=== PATIENT | female | born 1965 | race Caucasian/White ===

== ENCOUNTER 2017-09-21 08:19 | Outpatient (CLI) | payer OTHER ==
--- NOTE | 2017-09-21 12:24 | CT ---
CT THORACIC AORTOGRAM WITH CONTRAST: Multiple axial tomograms were obtained through the chest with IV contrast. Contrast was not obtained in the arterial phase. Multiplanar reconstruction and 3D post processing performed. INDICATION: Assess thoracic aortic aneurysm. COMPARISON: Comparison is made to CT chest 04/19/12. FINDINGS: Aortic root does not appear dilated. The aortic root is measured at 3.5 cm. There is fusiform dilatation of the ascending aorta. Ascending aorta measures 4.1 cm width on the co joann images. Previous measurement at similar location was recorded at approximately 3.9 cm. There is a focal saccular aneurysmal dilatation of the upper descending thoracic aorta beginning at t he descending portion of the aortic arch. This aneurysm shows peripheral calcification and shows int ernal thrombus and internal calcification along the medial wall with luminal narrowing. The lumen is very irregular and measures 3.0 cm. This aneurysm is measured at 5.1 cm in the coronal plane. A pr evious similar measurement was recorded at 4.8 cm. The descending thoracic aorta below this aneurysm is unremarkable with no atherosclerotic change or c alcification seen. The lungs are clear of infiltrate. There is linear stranding along the minor fissure on the right. There is a tiny nodule in the right middle lobe measuring in the 3-4 mm range. Mediastinum is unremarkable. Images through the upper abdomen are unremarkable. IMPRESSION: 1. Saccular aneurysm involving the upper descending thoracic aorta just beyond the arch is again see n. This aneurysm has slightly increased in size since the prior exam of 2011. Prominent peripheral calcification and internal thrombus and calcification is again noted producing luminal narrowing at t his aneurysm. 2. There is mild aneurysmal dilatation of the ascending aorta which has slightly increased in size. POS: FIONA
[2017-09-21] MEDS ORDERED: Iopamidol 370 76% 100 ML VIAL ONE (16:02)
== END 2017-09-21 08:20 | disposition home or self-care (01) ==
LOC: CT 08:19
PROVIDERS: ATTEND Family Medicine
DX: I71.2 Thoracic aortic aneurysm, without rupture (principal)
CPT/HCPCS: 71275

== ENCOUNTER 2017-12-20 12:46 | Inpatient (IN) | payer OTHER ==
[2017-12-20] MEDS ORDERED: Acetaminophen 325 MG TAB PO PRN (14:08)
[2017-12-20] MEDS ORDERED: Ondansetron ODT 4 MG TAB SL PRN (14:08)
[2017-12-20] MEDS ORDERED: Ondansetron HCl/PF 4 MG/2 ML Vial IVP PRN (14:18)
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
--- NOTE | 2017-12-20 15:24 | RAD ---
CHEST PA AND LATERAL: Date: 12/20/17 HISTORY: 52-year-old female with history of dyspnea on exertion and hypoxia. COMPARISON: Prior CT angio chest dated 09/21/17. FINDINGS: Stable calcified aneurysm at the upper descending aorta is again noted. Heart size is borderline enla rged. No confluent pneumonia, overt edema, or pleural effusion. IMPRESSION: Borderline cardiomegaly. Stable densely calcified aneurysm at the upper descending aorta junction, un changed from 09/21/17 CT angiogram chest. POS: FIONA
[2017-12-20 15:40] LABS: #Basophils 0.1 thou/uL (0.0-0.2); #Eosinphils 0.1 thou/uL (0.0-0.7); #Lymphocytes 2.9 thou/uL (1.20-3.40); #Monocytes 0.8 thou/uL (0.11-0.59); #Neutrophils 5.8 thou/uL (1.40-6.50); %Basophils 1.1 % (0.0-1.0); %Eosinophils 1.1 % (0.0-10.0); %Lymphocytes 29.7 % (21.0-51.0); %Monocytes 8.3 % (0.0-10.0); %Neutrophils 59.8 % (42.0-75.0); Hemoglobin 17.8 g/dL (12.0-16.0); Mean Corpuscular HGB CONC 31.1 g/dL (32.0-36.0); Mean Corpuscular Hemoglobin 29.2 pg (27.0-31.0); Mean Corpuscular Volume 93.9 fl (81.0-99.0); Mean Platelet Volume 8.1 fL (7.4-10.4); Platelet Count 174 thou/uL (130-400); RBC Distribution Width 15.7 % (11.5-14.5); White Blood Cell (WBC) Count 9.7 thou/uL (4.8-10.8)
[2017-12-20 16:02] LABS: ALT (SGPT) 38 U/L (8-55); AST (SGOT) 29 U/L (5-34); Albumin 3.9 g/dL (3.5-5.0); Alkaline Phosphatase 78 U/L (40-150); Anion Gap 9 mmol/L (10-20); BUN (Urea Nitrogen) 39 mg/dL (9.8-20.1); Bilirubin, Total 1.1 mg/dL (0.2-1.2); Calc. Creatinine Clearance 94 mL/min (70-130); Carbon Dioxide 37 mmol/L (22-29); Chloride 95 mmol/L (98-107); Estimated GFR-MDRD 49; Globulin 2.5 g/dL (2.4-3.5); Glucose 161 mg/dL (70-105); Magnesium 2.2 mg/dL (1.6-2.6); Potassium 4.1 mmol/L (3.5-5.1); Protein, Total 6.4 g/dL (6.0-8.3); Sodium 137 mmol/L (136-145)
[2017-12-20 16:04] LABS: CKMB 3.4 ng/mL (0-6.6); Troponin I 0.052 ng/mL (< 0.028)
[2017-12-20] MEDS ORDERED: Carvedilol 6.25 MG TAB PO SCH (17:00)
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
[2017-12-20 18:14] LABS: Bilirubin Negative (Negative); Blood, Urine Negative (Negative); Clarity CLEAR (Clear); Glucose, Urine (Dipstick) Negative (Negative); Leukocyte Negative (Negative); Nitrite Negative (Negative); Protein, Urine (Dipstick) Negative (Neg-Trace); Specific Gravity, Urine 1.012 (1.002-1.036); pH, Urine 5.5 (5.0-9.0)
[2017-12-20 18:17] LABS: Bacteria/HPF None Seen HPF (None Seen); Hyaline Casts/LPF 0-3 HYALINE CAST LPF (0-3 Hyaline); RBC/HPF None Seen HPF (0-3); Squamous Epithelial None Seen HPF (0-3); WBC/HPF None Seen HPF (0-3)
[2017-12-20] MEDS: Atorvastatin Calcium 40 MG TAB PO SCH ×2 (20:28→20:30)
[2017-12-20] MEDS: Carvedilol 25 MG TAB PO SCH (20:28)
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
--- NOTE | 2017-12-21 06:30 | PDOC.FM ---
- Subjective Subjective: Patient is doing well this morning. Overnight, she had an oxygen desaturation to 80% when O2 was removed which resolved when her oxygen was put back on. She has been on 3L since admission and sats have been appropriate. She has no complaints today. Denies CP, NIETO, N/V. She wishes to attempt smoking cessation with Wellbutrin. - Objective MAR Reviewed: Yes Vital Signs & Weight: Vital Signs (12 hours) Temp Pulse Resp BP Pulse Ox 12/21/17 04:54 72 22 H 12/21/17 03:48 70 24 H 92 L 12/21/17 03:26 88 L 12/21/17 03:25 76 28 H 93 L 12/21/17 03:20 98.6 F 86 30 H 148/80 H 77 L 12/20/17 23:55 93 L 12/20/17 23:54 92 L 12/20/17 23:50 98.6 F 76 22 H 154/69 H 80 L 12/20/17 20:00 98.6 F 74 22 H 12/20/17 19:04 98.6 F 74 22 H 122/58 L 92 L Weight Weight 107.275 kg I&O: 12/19/17 12/20/17 12/21/17 06:59 06:59 06:59 Intake Total 750 Output Total 700 Balance 50 Result Diagrams: 12/20/17 15:32 12/21/17 06:29 <Marion Larsen - Last Filed: 12/21/17 12:08> - Objective Vital Signs & Weight: Vital Signs (12 hours) Temp Pulse Resp BP Pulse Ox 12/21/17 18:30 98.4 F 61 20 142/65 H 97 12/21/17 15:55 97 12/21/17 15:34 98.5 F 67 24 H 147/91 H 87 L 12/21/17 11:05 98.7 F 60 16 147/67 H 97 12/21/17 07:59 97.8 F 62 20 Weight Weight 107.275 kg I&O: 12/20/17 12/21/17 12/22/17 06:59 06:59 06:59 Intake Total 750 1440 Output Total 700 1000 Balance 50 440 Result Diagrams: 12/20/17 15:32 12/21/17 06:29 <Rosio Palmer - Last Filed: 12/21/17 19:32> Phys Exam - Physical Examination Constitutional: NAD HEENT: moist MMs scattered wheezing, decreased breath sounds throughout Cardiovascular: RRR distant heart sounds Gastrointestinal: soft, non-tender Musculoskeletal: no edema, pulses present Neurological: moves all 4 limbs Psychiatric: normal affect, A&O x 3 <Marion Larsen - Last Filed: 12/21/17 12:08> Dx/Plan (1) Thoracic aortic aneurysm Code(s): I71.2 - THORACIC AORTIC ANEURYSM, WITHOUT RUPTURE Status: Acute (2) COPD (chronic obstructive pulmonary disease) Status: Acute (3) HTN (hypertension) Code(s): I10 - ESSENTIAL (PRIMARY) HYPERTENSION Status: Acute (4) Heart failure with preserved ejection fraction Code(s): I50.30 - UNSPECIFIED DIASTOLIC (CONGESTIVE) HEART FAILURE Status: Acute (5) Hyperlipidemia Code(s): E78.5 - HYPERLIPIDEMIA, UNSPECIFIED Status: Acute - Plan Plan: # Thoracic Aortic Aneurysm - 5.1 cm, increasing in size - eval'd by Dr. Dooley - May need cath per Dr. Dooley, will defer to Cardiology - Dr. Viera states cath is too risky with thrombus formation at the aortic aneurysm site, echo pending, records from prior cardiology workup requested # COPD, abnormal PFT - PFTs from [place] show - FVC 48% reference, FEV1 41, FEV1/FVC 70 pre, 71 post - TLC 57% ref, DLCO 33% ref - moderate obstructive pattern, moderate restrictive pattern, with severely decreased DLCO - CHF could be contributing, echo pending - Pulm recs appreciated, add LABA # HFpEF - check Echo - EKG, CXR - Cardiac enzymes x3, TSH, Mg wnl - BNP 1118, consider dilated cardiomyopathy, no pleural effusion, trace edema - home lasix 80mg BID, continue # HTN - continue home meds # HLD - continue home meds # Tobacco Abuse - Counseled on cessation - Will start wellbutrin and wean off cigarettes Fluids: none diet: Heart healthy Code: full Dispo: <48 hours <Marion Larsen - Last Filed: 12/21/17 12:08> Attending Addendum - Attending Addendum Date/Time: 12/21/171931 I personally evaluated the patient and discussed the management with Dr. Larsen. I agree with the History, Examination, Assessment and Plan documented above with any addition or exceptions noted below. Patient is being evaluated by pulmonology and cardiology for clearance prior to aortic aneurysm repair. <Rosio Palmer - Last Filed: 12/21/17 19:32>
[2017-12-21 06:54] LABS: Anion Gap 11 mmol/L (10-20); BUN (Urea Nitrogen) 32 mg/dL (9.8-20.1); Calc. Creatinine Clearance 120 mL/min (70-130); Calcium 8.7 mg/dL (7.8-10.44); Carbon Dioxide 37 mmol/L (22-29); Chloride 100 mmol/L (98-107); Estimated GFR-MDRD 64; Glucose 113 mg/dL (70-105); Potassium 4.5 mmol/L (3.5-5.1); Sodium 143 mmol/L (136-145)
[2017-12-21] MEDS: Losartan 25 MG TAB PO SCH (08:56)
[2017-12-21] MEDS: Furosemide 80 MG TAB PO SCH (08:57)
[2017-12-21] MEDS: Carvedilol 25 MG TAB PO SCH ×2 (08:57→20:41)
[2017-12-21] MEDS ORDERED: Enoxaparin Sodium 40 MG/0.4 ML SYRINGE SC SCH (09:00)
[2017-12-21] MEDS ORDERED: Losartan 25 MG TAB PO SCH (09:00)
[2017-12-21] MEDS ORDERED: Atorvastatin Calcium 40 MG TAB PO SCH (09:00)
[2017-12-21] MEDS ORDERED: Furosemide 40 MG TAB PO SCH (09:00)
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
[2017-12-21] MEDS ORDERED: Bupropion 150 MG XL TAB PO SCH (12:30)
[2017-12-21] MEDS ORDERED: Enoxaparin Sodium 100 MG/ML SYRINGE SC SCH (13:30)
--- NOTE | 2017-12-21 16:12 | PDOC.CTH ---
Cardiology Progress Note - Subjective She is doing well. Continues to have SOB with any exertion. She had a stress test and it showed anterior ischemia. - Objective Vital Signs Temp Pulse Resp BP Pulse Ox 12/21/17 15:55 97 12/21/17 15:34 98.5 F 67 24 H 147/91 H 87 L 12/21/17 11:05 98.7 F 60 16 147/67 H 97 12/21/17 07:59 97.8 F 62 20 12/21/17 07:16 97.8 F 62 20 174/74 H 100 12/21/17 04:54 72 22 H Weight 236 lb 8 oz 12/20/17 12/21/17 12/22/17 06:59 06:59 06:59 Intake Total 750 Output Total 700 600 Balance 50 -600 - Physical Examination General/Neuro: alert & oriented x3, NAD Neck: no JVD present Lungs: CTA, unlabored respirations Heart: RRR Abdomen: NT/ND Extremities: + edema B (1+) - Telemetry Telemetry Rhythm: NSR - Labs Result Diagrams: 12/20/17 15:32 12/21/17 06:29 Troponin/CKMB CK-MB (CK-2) 3.4 ng/mL (0-6.6) 12/20/17 15:32 Troponin I 0.052 ng/mL (< 0.028) H 12/20/17 15:32 - Assessment/Plan 1. Abnormal stress test with anterior ischemia 2. Thoracic aortic aneurysm 3. COPD 4. Tobacco use PLAN: - I spoke with Dr. Dooley about the situation and he would like her to have a heart catheterization before subjecting her to general anesthesia and her aortic repair. She has anterior ischemia and significant smoking history. She also has thrombus around the paulino of her aortic aneurysm and it would be high risk for stroke or equalization to do procedure through the groin. Will plan on doing LHC through the right radial artery approach. We spoke about the risks and benefits of the procedure including but not limited to Stroke, [place], , bleeding and need for blood transfusion, limb loss, organ loss, vascular injury nad need for emergent surgical repair, need for emergent CABG. Her stroke or emboliatrion risk is much higher given thrombus in the aneurysm. She understand and verbalizes understanding of this and agrees to proceed.
[2017-12-21] MEDS ORDERED: Communication Order-Pharmacy FS SCH (16:30)
[2017-12-21] MEDS: Atorvastatin Calcium 40 MG TAB PO SCH (20:41)
[2017-12-21] MEDS: Arformoterol 15 MCG/2 ML NEB NEB SCH (21:43)
[2017-12-22] MEDS: Losartan 25 MG TAB PO SCH (05:39)
[2017-12-22] MEDS: Carvedilol 25 MG TAB PO SCH ×2 (05:39→21:25)
[2017-12-22] MEDS: Bupropion 150 MG XL TAB PO SCH (05:39)
[2017-12-22] MEDS: Arformoterol 15 MCG/2 ML NEB NEB SCH ×2 (06:40→19:51)
[2017-12-22] MEDS ORDERED: Midazolam HCl 2 mg/2 ml Vial ONE (06:54)
[2017-12-22] MEDS ORDERED: Fentanyl 100 MCG/2 ML VIAL ONE (06:54)
[2017-12-22] MEDS ORDERED: Lidocaine 1% (PF) 30 ML VIAL ONE (06:54)
--- NOTE | 2017-12-22 07:01 | PDOC.FM ---
- Subjective Subjective: Patient is doing well this morning. She just returned from her cardiac catheterization. She denies pain at this time. No acute events overnight. - Objective MAR Reviewed: Yes Vital Signs & Weight: Vital Signs (12 hours) Temp Pulse Resp BP Pulse Ox 12/22/17 06:40 60 16 12/22/17 03:58 98.3 F 71 20 139/63 91 L 12/21/17 23:55 98.6 F 60 22 H 145/63 H 92 L 12/21/17 21:43 62 18 96 12/21/17 19:20 98.4 F 61 20 Weight Weight 104.553 kg I&O: 12/21/17 12/22/17 12/23/17 06:59 06:59 06:59 Intake Total 750 1920 Output Total 700 1650 Balance 50 270 Result Diagrams: 12/20/17 15:32 12/21/17 06:29 <Marion Larsen - Last Filed: 12/22/17 11:25> - Objective Vital Signs & Weight: Vital Signs (12 hours) Temp Pulse Resp BP Pulse Ox 12/22/17 11:32 98.6 F 59 L 20 146/65 H 95 12/22/17 08:15 97.8 F 56 L 20 131/58 L 94 L 12/22/17 07:32 98 F 60 16 12/22/17 06:40 60 16 12/22/17 03:58 98.3 F 71 20 139/63 91 L Weight Weight 104.553 kg I&O: 12/21/17 12/22/17 12/23/17 06:59 06:59 06:59 Intake Total 750 1920 Output Total 700 1650 Balance 50 270 Result Diagrams: 12/20/17 15:32 12/21/17 06:29 <Rosio Palmer - Last Filed: 12/22/17 14:37> Phys Exam - Physical Examination Constitutional: NAD HEENT: moist MMs Respiratory: no wheezing, no rales, clear to auscultation bilateral Cardiovascular: RRR, no significant murmur Musculoskeletal: no edema Neurological: moves all 4 limbs Psychiatric: normal affect, A&O x 3 <Marion Larsen - Last Filed: 12/22/17 11:25> Dx/Plan (1) Thoracic aortic aneurysm Code(s): I71.2 - THORACIC AORTIC ANEURYSM, WITHOUT RUPTURE Status: Acute (2) COPD (chronic obstructive pulmonary disease) Status: Acute (3) HTN (hypertension) Code(s): I10 - ESSENTIAL (PRIMARY) HYPERTENSION Status: Acute (4) Heart failure with preserved ejection fraction Code(s): I50.30 - UNSPECIFIED DIASTOLIC (CONGESTIVE) HEART FAILURE Status: Acute (5) Hyperlipidemia Code(s): E78.5 - HYPERLIPIDEMIA, UNSPECIFIED Status: Acute - Plan Plan: # Thoracic Aortic Aneurysm - 5.1 cm, increasing in size - eval'd by Dr. Dooley, awaiting surgical recommendations, inpatient vs outpatient - Cardiac clearance and pulmonary clearance performed with negative cath this morning and poor PFT studies but not to exclude her from surgical intervention. # COPD, abnormal PFT - FVC 48% reference, FEV1 41, FEV1/FVC 70 pre, 71 post - TLC 57% ref, DLCO 33% ref - moderate obstructive pattern, moderate restrictive pattern, with severely decreased DLCO - Added LABA daily - Pulm following, appreciate recs # HFpEF - Echo with grade 2/3 diastolic dysfunction, EF 55-60% - Cardiac enzymes x3, TSH, Mg wnl - BNP 1118, not clinically overloaded - continue home lasix 80mg BID # HTN - continue home meds # HLD - continue home meds # Tobacco Abuse - Counseled on cessation - Continue wellbutrin and wean off cigarettes Fluids: none diet: Heart healthy Code: full Dispo: <48 hours <Marion Larsen - Last Filed: 12/22/17 11:25> Attending Addendum - Attending Addendum Date/Time: 12/22/17 8416 I personally evaluated the patient and discussed the management with Dr. Larsen. I agree with the History, Examination, Assessment and Plan documented above with any addition or exceptions noted below. The patient had a cath this morning which per report showed no blockage. Pt will remain in hospital until her AAA surgery. <Rosio Palmer - Last Filed: 12/22/17 14:37>
[2017-12-22] MEDS ORDERED: Nitroglycerin 100MG/250ML BOT 250 ML ONE (07:45)
[2017-12-22] MEDS ORDERED: Heparin 10,000 UNITS/1 ML VIAL ONE (07:45)
[2017-12-22] MEDS ORDERED: Verapamil 5 MG/2 ML VIAL ONE (07:45)
[2017-12-22] MEDS ORDERED: traMADol HCl 50 MG TAB PO PRN (08:03)
[2017-12-22] MEDS ORDERED: Nitroglycerin 0.4 MG TAB (25 Tab Bottle) SL PRN (08:03)
[2017-12-22] MEDS ORDERED: Sodium Chloride 0.9% 200 ML IV SCH (08:15)
[2017-12-22] MEDS: Furosemide 80 MG TAB PO SCH (11:40)
[2017-12-22] MEDS ORDERED: Iopamidol 370 76% 100 ML VIAL ONE (13:54)
--- NOTE | 2017-12-22 17:03 | CON ---
DATE OF CONSULTATION: 12/22/2017 HISTORY OF PRESENT ILLNESS: Ms. Jauregui is a 52-year-old woman who I have seen in the office for a proximal descending thoracic aneurysm measuring 5.5 cm in need of repair. She has complicated cardia c medical history complicated by tobacco abuse. She continues to smoke at home. She has longstandin g COPD and uses inhalers and nebulizer at home. She had been seen in the hospital by cartographic technician an d commercial internship and did not have really satisfactory workup in my opinion. She was admitted and was seen by Dr. Viera and underwent cardiac catheterization today showing no coronary artery disease. E chocardiogram shows an ejection fraction of 60%. Pulmonary function tests have been performed showin g severe obstructive defect. She has been placed on DuoNeb and Brovana. I have ordered all the equipment for thoracic aneurysm repair and will be available for Thursday. In t he interim, the patient once discharged home, but in my opinion, she will immediately restart smoking and she cannot afford any of the medications that has been started while she has been in the [facility]. Further complicating her COPD in recovery. PAST MEDICAL HISTORY: 1. Hypertension. 2. Dyslipidemia. 3. Tobacco abuse. 4. Chronic obstructive pulmonary disease. 5. Thoracic aortic aneurysm. PAST SURGICAL HISTORY: 1. Herniorrhaphy. 2. Right foot surgery. ALLERGIES: LISINOPRIL. REVIEW OF SYSTEMS: Negative except as above. PHYSICAL EXAMINATION: GENERAL: This is a well-developed, obese woman resting comfortably in bed. VITAL SIGNS: Height is 5 feet 5 inches, weight 230 pounds, BSA is 2.19. Temperature is 98.9, pulse is 68 and regular, blood pressure 146/65, oxygen saturation is 86% on room air. HEENT: Sclerae nonicteric. Pupils equal and round bilaterally. NECK: Supple. There is no bruit. CHEST: Clear bilaterally. HEART: Rhythm is regular, without murmur. ABDOMEN: Soft, nontender. EXTREMITIES: No cyanosis, clubbing or edema. VASCULAR: She has palpable carotid, radial, and femoral pulses bilaterally. ASSESSMENT AND PLAN: This 52-year-old woman who has chronic obstructive pulmonary disease and contin ues to smoke. I recommend that we keep her in the hospital so she can smoke. Continue her Brovana a nd DuoNeb, which she can afford to use at home in preparation for thoracic aneurysm repair on Thursday.
--- NOTE | 2017-12-22 18:28 | EKG ---
Test Reason : Blood Pressure : / mmHG Vent. Rate : 066 BPM Atrial Rate : 066 BPM P-R Int : 190 ms QRS Dur : 076 ms QT Int : 436 ms P-R-T Axes : 052 -38 061 degrees QTc Int : 457 ms Normal sinus rhythm Possible Left atrial enlargement Left axis deviation Anterior infarct , age undetermined Abnormal ECG When compared with ECG of 19-APR-2012 12:16, Criteria for Inferior infarct are no longer Present Nonspecific T wave abnormality now evident in Anterior leads Confirmed by Nelson GROSS ([id number]) on 12/22/2017 6:28:10 PM Referred By: JUSTIN Confirmed By:Nelson GROSS
[2017-12-22] MEDS: Atorvastatin Calcium 40 MG TAB PO SCH (21:25)
[2017-12-22] MEDS: Acetaminophen/Codeine 30-300mg Tablet PO PRN (22:26)
--- NOTE | 2017-12-23 06:08 | PDOC.FM ---
- Subjective Subjective: Patient is resting comfortably this morning. She had cath yesterday from radial approach that was negative. She is awaiting surgery for thoracic aortic aneurysm repair on Thursday. This morning she did have 20beats of vtach, asymptomatic during this time. Happened at rest. - Objective MAR Reviewed: Yes Vital Signs & Weight: Vital Signs (12 hours) Temp Pulse Resp BP Pulse Ox 12/23/17 04:00 97.7 F 62 14 135/64 93 L 12/22/17 19:51 79 18 91 L 12/22/17 19:00 99.9 F H 79 18 174/79 H 92 L Weight Weight 104.553 kg I&O: 12/21/17 12/22/17 12/23/17 06:59 06:59 06:59 Intake Total 750 1920 480 Output Total 700 1650 800 Balance 50 270 -320 Result Diagrams: 12/20/17 15:32 12/23/17 09:55 <Marion Larsen - Last Filed: 12/23/17 12:20> - Objective Vital Signs & Weight: Vital Signs (12 hours) Temp Pulse Resp BP Pulse Ox 12/23/17 19:47 97.8 F 65 20 125/60 97 12/23/17 19:10 73 16 Weight Weight 104.825 kg I&O: 12/22/17 12/23/17 12/24/17 06:59 06:59 06:59 Intake Total 1920 480 Output Total 1650 800 Balance 270 -320 Result Diagrams: 12/20/17 15:32 12/23/17 09:55 <Rosio Palmer - Last Filed: 12/23/17 20:51> Phys Exam - Physical Examination Constitutional: NAD HEENT: PERRLA, moist MMs Respiratory: clear to auscultation bilateral scattered wheezing Cardiovascular: RRR systolic murmur, distant heart sounds Musculoskeletal: no edema Neurological: moves all 4 limbs Psychiatric: A&O x 3 Skin: cap refill <2 seconds <Marion Larsen - Last Filed: 12/23/17 12:20> Dx/Plan (1) Thoracic aortic aneurysm Code(s): I71.2 - THORACIC AORTIC ANEURYSM, WITHOUT RUPTURE Status: Acute (2) COPD (chronic obstructive pulmonary disease) Status: Acute (3) HTN (hypertension) Code(s): I10 - ESSENTIAL (PRIMARY) HYPERTENSION Status: Acute (4) Heart failure with preserved ejection fraction Code(s): I50.30 - UNSPECIFIED DIASTOLIC (CONGESTIVE) HEART FAILURE Status: Acute (5) Hyperlipidemia Code(s): E78.5 - HYPERLIPIDEMIA, UNSPECIFIED Status: Acute - Plan Plan: Thoracic Aortic Aneurysm - 5.1 cm with thrombus formation, increasing in size - eval'd by Dr. Dooley, will have surgery on Thursday, inpatient until that time - Cardiac clearance and pulmonary clearance performed with negative cath and poor PFT studies but not to exclude her from surgical intervention. Nonsustained Vtach - patient on Coreg 25mg BID - asymptomatic at that time - will talk with cardiology to see if medication adjustment is warranted - repeat BMP and Mg wnl COPD, abnormal PFT - FVC 48% reference, FEV1 41, FEV1/FVC 70 pre, 71 post - TLC 57% ref, DLCO 33% ref - moderate obstructive pattern, moderate restrictive pattern, with severely decreased DLCO - Added LABA (brovana) daily - Pulm following, appreciate recs HFpEF - Echo with grade 2/3 diastolic dysfunction, EF 55-60% - Cardiac enzymes x3, TSH, Mg wnl - BNP 1118, not clinically overloaded - continue home lasix 80mg BID HTN - has been slightly elevated entire stay - will switch to losartan/hctz combo pill - continue coreg 25mg BID HLD - continue home meds Tobacco Abuse - Counseled on cessation - Continue wellbutrin and wean off cigarettes Fluids: none diet: Heart healthy Code: full Dispo: <48 hours <Marion Larsen - Last Filed: 12/23/17 12:20> Attending Addendum - Attending Addendum Date/Time: 12/23/172048 I personally evaluated the patient and discussed the management with Dr. Larsen. I agree with the History, Examination, Assessment and Plan documented above with any addition or exceptions noted below. The patient has had runs of V tach this morning. Will coordinate with cardiology. She was asymptomatic while it occurred. <Rosio Palmer - Last Filed: 12/23/17 20:51>
[2017-12-23] MEDS: Arformoterol 15 MCG/2 ML NEB NEB SCH ×2 (07:19→19:10)
[2017-12-23] MEDS: Hydrochlorothiazide 25 MG TAB PO SCH (08:17)
[2017-12-23] MEDS: Bupropion 150 MG XL TAB PO SCH (08:17)
[2017-12-23] MEDS: Carvedilol 25 MG TAB PO SCH ×2 (08:17→20:57)
[2017-12-23] MEDS: Furosemide 80 MG TAB PO SCH (08:17)
[2017-12-23] MEDS: Losartan 25 MG TAB PO SCH (08:19)
--- NOTE | 2017-12-23 08:28 | PDOC.CTH ---
Cardiology Progress Note - Subjective She had her [facility] yesterday and it showed no CAD. Radial approach was successful and did not get near the aneurysm. She is doing well today. Her right wrist is without issues. - Objective Vital Signs Temp Pulse Resp BP Pulse Ox 12/23/17 07:40 97.8 F 56 L 20 170/75 H 87 L 12/23/17 07:19 70 12 12/23/17 04:00 97.7 F 62 14 135/64 93 L Weight 231 lb 1.6 oz 12/22/17 12/23/17 12/24/17 06:59 06:59 06:59 Intake Total 1920 480 Output Total 1650 800 Balance 270 -320 - Physical Examination General/Neuro: alert & oriented x3, NAD Neck: no JVD present Lungs: CTA, unlabored respirations Heart: RRR Abdomen: NT/ND Extremities: + edema B (trace) - Telemetry Telemetry Rhythm: NSR - Labs Result Diagrams: 12/20/17 15:32 12/21/17 06:29 Troponin/CKMB CK-MB (CK-2) 3.4 ng/mL (0-6.6) 12/20/17 15:32 Troponin I 0.052 ng/mL (< 0.028) H 12/20/17 15:32 - Assessment/Plan 1. Abnormal stress test with anterior ischemia 2. Thoracic aortic aneurysm 3. COPD 4. Tobacco use PLAN: - May proceed with surgery from cardiac perspective.
--- NOTE | 2017-12-23 10:32 | PQF ---
CLINICAL DOCUMENTATION IMPROVEMENT CLARIFICATION FORM: ICD-10 Updated PLEASE DO AN ADDENDUM TO THE PROGRESS NOTE WITH ANY DOCUMENTATION UPDATES OR ADDITIONS AND CARRY THROUGH TO DC SUMMARY. THANK YOU. DATE: 12/23 ATTN: DR. JOSE F VAIL/ DR. SIMONE FRANK Please exercise your independent, professional judgment in responding to the clarification form. Clinical indicators are provided on the bottom of this form for your review Please check appropriate box(s): [ ] Acute Renal Failure (ARF) / Acute Kidney Injury (SEAMUS) (Please specify associated condition, if applicable) [ ] Other Etiology or underlying conditions related to the diagnosis of ARF / SEAMUS: [ ] Acute on Chronic Renal Failure please specify Stage of CKD (see below) [ ] CKD without ARF/SEAMUS please specify Stage of CKD [ ] Other diagnosis [ ] Unable to determine National Kidney Foundation Guidelines for CKD Staging Stage I Kidney damage with normal or increased GFR GFR > 90 Stage II Kidney damage with mildly decreased GFR GFR 60-89 Stage III Kidney damage with moderately decreased GFR GFR 30-59 Stage IV Kidney damage with severely decreased GFR GFR 16-29 Stage V Kidney failure GFR<15 ESRD End Stage Renal Disease On dialysis For continuity of documentation, please document condition throughout progress notes and discharge summary. Thank You. CLINICAL INDICATORS - SIGNS / SYMPTOMS / LABS BUN: 39 CR: 1.16 GFR: 49 (ON ADMIT, 12/20) 32 0.91 64 (12/21) 14 0.70 89 (12/23) RISK FACTORS: HTN HOME DIURETIC USE (PO LASIX) TREATMENT: HYPERTENSIVE MEDICATIONS (COREG & COZAAR 12/20 - PRESENT) THANK YOU! [employer] (This form is maintained as a part of the permanent medical record) 2014 [employer]. All Rights Reserved Azalea Houser RN, BSN [email or web address] Office: [phone] [facility]
--- NOTE | 2017-12-23 10:36 | PQF ---
CLINICAL DOCUMENTATION IMPROVEMENT CLARIFICATION FORM: ICD-10 Updated PLEASE DO AN ADDENDUM TO THE PROGRESS NOTE WITH ANY DOCUMENTATION UPDATES OR ADDITIONS AND CARRY THROUGH TO DC SUMMARY. THANK YOU. DATE: 12/23 ATTN: DR. JOSE F VAIL/ DR. SIMONE FRANK Please exercise your independent, professional judgment in responding to the clarification form. Clinical indicators are provided on the bottom of this form for your review Please check appropriate box(s): [ ] Acute Respiratory Failure: [ ] with Hypoxia [ ] with Hypercapnia [ ] Acute Respiratory Failure due to: (etiology) [ ] Other diagnosis [ ] Unable to determine For continuity of documentation, please document condition throughout progress notes and discharge summary. Thank You. CLINICAL INDICATORS - SIGNS / SYMPTOMS / LABS PHYSICIAN H&P DOCUMENTATION 12/20: PATIENT SATTING IN HIGH 80'S ON ROOM AIR ON PRESENTATION. HER FRIEND STATES THE PATIENT IS NOT ABLE TO WALK FROM THE CAR TO THE HOUSE W/O GETTING SHORT OF BREATH. ...SHE DID RECENTLY START SMOKING AGAIN PHYSICIAN PN 12/21: OVERNIGHT DESATTED TO 80% ON ROOM AIR, HAS BEEN ON 3L SINCE ADMIT ROOM AIR SATS: 77 - 88% (12/20 - PRESENT) 02 SATS ON 2-3L: 91 - 100% (12/20 - PRESENT) RISK FACTORS: CURRENT TOBACCO ABUSE COPD TREATMENTS: SUPPLEMENTAL OXYGEN (12/20 - PRESENT) RESPIRATORY TREATMENTS (12/20 - PRESENT) PULMONOLOGY CONSULT THANK YOU! [employer] (This form is maintained as a part of the permanent medical record) 2014 [employer]. All Rights Reserved Azalea Houser RN, BSN [email or web address] Office: [phone] [facility]
[2017-12-23 10:37] LABS: BUN (Urea Nitrogen) 14 mg/dL (9.8-20.1); Calc. Creatinine Clearance 152 mL/min (70-130); Calcium 8.8 mg/dL (7.8-10.44); Estimated GFR-MDRD 87; Glucose 107 mg/dL (70-105); Magnesium 2.3 mg/dL (1.6-2.6)
[2017-12-23 10:46] LABS: Anion Gap 14 mmol/L (10-20); Carbon Dioxide 36 mmol/L (22-29); Chloride 96 mmol/L (98-107); Potassium 4.6 mmol/L (3.5-5.1); Sodium 141 mmol/L (136-145)
[2017-12-23] MEDS: Atorvastatin Calcium 40 MG TAB PO SCH (20:57)
[2017-12-23] MEDS: Enoxaparin Sodium 100 MG/ML SYRINGE SC SCH (20:57)
[2017-12-24 04:25] LABS: Hemoglobin 16.9 g/dL (12.0-16.0); Platelet Count 163 thou/uL (130-400)
--- NOTE | 2017-12-24 06:51 | PDOC.FM ---
- Subjective Subjective: Patient resting comfortably. No acute events overnight. Denies CP, SOB, and N/ V. Reports breathing a little easier. - Objective MAR Reviewed: Yes Vital Signs & Weight: Vital Signs (12 hours) Temp Pulse Resp BP Pulse Ox 12/24/17 04:00 98.1 F 74 20 124/60 92 L 12/23/17 20:06 97.8 F 65 20 97 12/23/17 19:47 97.8 F 65 20 125/60 97 12/23/17 19:10 73 16 Weight Weight 107.819 kg I&O: 12/22/17 12/23/17 12/24/17 06:59 06:59 06:59 Intake Total 1920 480 150 Output Total 1650 800 650 Balance 270 -320 -500 Result Diagrams: 12/24/17 03:23 12/24/17 03:23 <Marion Larsen - Last Filed: 12/24/17 11:24> - Objective Vital Signs & Weight: Vital Signs (12 hours) Temp Pulse Resp BP Pulse Ox 12/24/17 18:35 73 16 87 L 12/24/17 16:55 98.8 F 66 18 131/61 93 L 12/24/17 12:05 98.7 F 62 18 125/61 94 L Weight Weight 107.819 kg I&O: 12/23/17 12/24/17 12/25/17 06:59 06:59 06:59 Intake Total 480 150 Output Total 800 650 Balance -320 -500 Result Diagrams: 12/24/17 03:23 12/24/17 03:23 <Rosio Palmer - Last Filed: 12/24/17 19:44> Phys Exam - Physical Examination Constitutional: NAD HEENT: moist MMs Respiratory: no wheezing, no rales, clear to auscultation bilateral Cardiovascular: RRR systolic murmur Musculoskeletal: no edema <Marion Larsen - Last Filed: 12/24/17 11:24> Dx/Plan (1) Thoracic aortic aneurysm Code(s): I71.2 - THORACIC AORTIC ANEURYSM, WITHOUT RUPTURE Status: Acute (2) COPD (chronic obstructive pulmonary disease) Status: Acute (3) HTN (hypertension) Code(s): I10 - ESSENTIAL (PRIMARY) HYPERTENSION Status: Acute (4) Heart failure with preserved ejection fraction Code(s): I50.30 - UNSPECIFIED DIASTOLIC (CONGESTIVE) HEART FAILURE Status: Acute (5) Hyperlipidemia Code(s): E78.5 - HYPERLIPIDEMIA, UNSPECIFIED Status: Acute - Plan Plan: Thoracic Aortic Aneurysm - 5.1 cm with thrombus formation, increasing in size - therapeutic lovenox until surgery. HOld this evening - eval'd by Dr. Dooley, will have surgery on Thursday, inpatient until that time - Cardiac clearance and pulmonary clearance performed with negative cath and poor PFT studies but not to exclude her from surgical intervention. Nonsustained Vtach - patient on Coreg 25mg BID - asymptomatic at that time, cardiology reports no other treatment needed at this time - no vtach overnight - repeat BMP and Mg wnl COPD, abnormal PFT - FVC 48% reference, FEV1 41, FEV1/FVC 70 pre, 71 post - TLC 57% ref, DLCO 33% ref - moderate obstructive pattern, moderate restrictive pattern, with severely decreased DLCO - Added LABA (brovana) daily - Pulm following, appreciate recs HFpEF - Echo with grade 2/3 diastolic dysfunction, EF 55-60% - Cardiac enzymes x3, TSH, Mg wnl - BNP 1118, not clinically overloaded - continue home lasix 80mg BID HTN - has been slightly elevated entire stay - will switch to losartan/hctz combo pill - continue coreg 25mg BID HLD - continue home meds Tobacco Abuse - Counseled on cessation - Continue wellbutrin and wean off cigarettes Fluids: none diet: Heart healthy Code: full Dispo: <48 hours <Marion Larsen - Last Filed: 12/24/17 11:24> Attending Addendum - Attending Addendum Date/Time: 12/24/171943 I personally evaluated the patient and discussed the management with Dr. Larsen. I agree with the History, Examination, Assessment and Plan documented above with any addition or exceptions noted below. The patient is doing well. No vtach overnight. Plan for aortic aneurysm repair tomorrow. <Rosio Palmer - Last Filed: 12/24/17 19:44>
[2017-12-24] MEDS: Arformoterol 15 MCG/2 ML NEB NEB SCH ×2 (06:59→18:35)
[2017-12-24] MEDS: Losartan 25 MG TAB PO SCH (09:23)
[2017-12-24] MEDS: Bupropion 150 MG XL TAB PO SCH ×2 (09:24→21:12)
[2017-12-24] MEDS: Furosemide 80 MG TAB PO SCH (09:24)
[2017-12-24] MEDS: Enoxaparin Sodium 100 MG/ML SYRINGE SC SCH (09:24)
[2017-12-24] MEDS: Hydrochlorothiazide 25 MG TAB PO SCH (09:24)
[2017-12-24] MEDS: Carvedilol 25 MG TAB PO SCH ×2 (09:24→21:12)
--- NOTE | 2017-12-24 16:25 | PDOC.CTH ---
Cardiology Progress Note - Subjective Doing well. No new issues. - Objective Vital Signs Temp Pulse Resp BP Pulse Ox 12/24/17 07:15 98.1 F 65 18 135/62 93 L 12/24/17 07:10 98.1 F 65 18 93 L 12/24/17 06:59 74 16 92 L Weight 237 lb 11.2 oz 12/23/17 12/24/17 12/25/17 06:59 06:59 06:59 Intake Total 480 150 Output Total 800 650 Balance -320 -500 - Physical Examination General/Neuro: alert & oriented x3, NAD Neck: no JVD present Lungs: CTA, unlabored respirations Heart: RRR Abdomen: NT/ND Extremities: other: (no edema.) - Telemetry Telemetry Rhythm: NSR - Labs Result Diagrams: 12/24/17 03:23 12/24/17 03:23 Troponin/CKMB CK-MB (CK-2) 3.4 ng/mL (0-6.6) 12/20/17 15:32 Troponin I 0.052 ng/mL (< 0.028) H 12/20/17 15:32 - Assessment/Plan 1. Abnormal stress test with anterior ischemia 2. Thoracic aortic aneurysm 3. COPD 4. Tobacco use PLAN: - Surgery tomorrow.
[2017-12-24] MEDS: Atorvastatin Calcium 40 MG TAB PO SCH (21:12)
--- NOTE | 2017-12-25 05:31 | PDOC.FM ---
- Subjective Subjective: Patient is seen in the ICU. She has just returned from surgery performed by Dr. Dooley. No acute events overnight. - Objective MAR Reviewed: Yes Vital Signs & Weight: Vital Signs (12 hours) Temp Pulse Resp BP BP Pulse Ox 12/25/17 04:00 98.3 F 67 18 153/67 H 95 12/24/17 20:16 99.3 F 69 14 90 L 12/24/17 20:09 99.3 F 69 14 145/65 H 90 L 12/24/17 18:35 73 16 87 L Weight Weight 107.819 kg I&O: 12/23/17 12/24/17 12/25/17 06:59 06:59 06:59 Intake Total 480 150 Output Total 800 650 Balance -320 -500 Result Diagrams: 12/25/17 11:12 12/25/17 11:12 <Marion Larsen - Last Filed: 12/25/17 16:33> - Objective Vital Signs & Weight: Vital Signs (12 hours) Pulse Resp BP Pulse Ox 12/26/17 09:12 69 24 H 89 L 12/26/17 08:00 15 12/26/17 07:48 67 10 L 92 L 12/26/17 06:42 72 157/74 H 12/26/17 06:41 67 10 L 92 L 12/26/17 06:00 11 L 12/26/17 04:00 12 12/26/17 02:00 11 L 12/26/17 00:00 12 12/25/17 23:46 68 10 L 91 L 12/25/17 22:00 10 L Weight Admit Weight 106.594 kg Weight 107.3 kg Most Recent Monitor Data Heart Rate from ECG 64 NIBP 108/87 NIBP BP-Mean 100 Respiration from ECG 13 SpO2 90 I&O: 12/25/17 12/26/17 12/27/17 06:59 06:59 06:59 Intake Total 240 586.5 35.1 Output Total 1055 107 Balance 240 -468.5 -71.9 Result Diagrams: 12/26/17 03:25 12/26/17 03:25 <Rosio Palmer - Last Filed: 12/26/17 09:28> Phys Exam - Physical Examination Constitutional: NAD intubated, sedated, equal chest rise Cardiovascular: RRR <Marion Larsen Filed: 12/25/17 16:33> Dx/Plan (1) Thoracic aortic aneurysm Code(s): I71.2 - THORACIC AORTIC ANEURYSM, WITHOUT RUPTURE Status: Acute (2) COPD (chronic obstructive pulmonary disease) Status: Acute (3) HTN (hypertension) Code(s): I10 - ESSENTIAL (PRIMARY) HYPERTENSION Status: Acute (4) Heart failure with preserved ejection fraction Code(s): I50.30 - UNSPECIFIED DIASTOLIC (CONGESTIVE) HEART FAILURE Status: Acute (5) Hyperlipidemia Code(s): E78.5 - HYPERLIPIDEMIA, UNSPECIFIED Status: Acute - Plan Plan: Thoracic Aortic Aneurysm - 5.1 cm with thrombus formation, increasing in size - s/p repair by Dr. Dooley this morning, per nursing staff report, surgery went well without complications - currently intubated and sedated and in ICU, will wean sedation and attempt extubation later today or tomorrow COPD, abnormal PFT - FVC 48% reference, FEV1 41, FEV1/FVC 70 pre, 71 post - TLC 57% ref, DLCO 33% ref - moderate obstructive pattern, moderate restrictive pattern, with severely decreased DLCO - Added LABA (brovana) daily - Pulm following, appreciate recs HFpEF - Echo with grade 2/3 diastolic dysfunction, EF 55-60% - Cardiac enzymes x3, TSH, Mg wnl - BNP 1118, not clinically overloaded - continue home lasix 80mg, transition over to IV if not extubated soon HTN - has been slightly elevated entire stay - will switch to losartan/hctz combo pill - continue coreg 25mg BID, again transition to IV if needed HLD - continue home meds Tobacco Abuse - Counseled on cessation - Continue wellbutrin and wean off cigarettes - hold until PO Fluids: none diet: Heart healthy Code: full Dispo: <48 hours <Marion Larsen - Last Filed: 12/25/17 16:33> Attending Addendum - Attending Addendum Date/Time: 12/25/17 8125 I personally evaluated the patient and discussed the management with Dr. Larsen. I agree with the History, Examination, Assessment and Plan documented above with any addition or exceptions noted below. The patient was seen shortly after going to the ICU following aneurysm repair. She is intubated and will remain on the vent today. <Rosio Palmer - Last Filed: 12/26/17 09:28>
[2017-12-25] MEDS ORDERED: Heparin 10,000 UNITS/1 ML VIAL ONE ×2 (06:28→09:06)
[2017-12-25] MEDS ORDERED: Protamine Sulfate 50 MG/5 ML VIAL ONE (06:28)
[2017-12-25] MEDS: Arformoterol 15 MCG/2 ML NEB NEB SCH ×2 (06:57→19:04)
[2017-12-25] MEDS ORDERED: Fentanyl 100 MCG/2 ML VIAL ONE (07:21)
[2017-12-25] MEDS ORDERED: Albuterol Sulfate HFA (OR ONLY) ONE (07:24)
[2017-12-25] MEDS ORDERED: CEFAZOLIN/Water 2 GM/20 ML SYRINGE ONE (07:26)
[2017-12-25] MEDS ORDERED: Vecuronium 10 MG VIAL ONE ×2 (08:57→17:53)
[2017-12-25] MEDS ORDERED: Protamine Sulfate 250 MG/25 ML VIAL ONE (09:37)
[2017-12-25] MEDS ORDERED: Propofol 1,000 MG/100 ML VIAL IV ONE (10:17)
[2017-12-25] MEDS ORDERED: Ventilator Sedation Protocol 1 EACH FS ONE (10:38)
[2017-12-25] MEDS ORDERED: DISCONTINUE PREVIOUS NARCOTIC PAIN MEDICATIONS AND BENZODIAZEPINES FS SCH (10:41)
[2017-12-25] MEDS ORDERED: Lorazepam 2 MG/ML VIAL SLOW IVP PRN (10:41)
[2017-12-25] MEDS ORDERED: Fentanyl BOLUS 250 ML IVPB PRN (10:41)
[2017-12-25] MEDS ORDERED: Morphine 4 MG/ML VIAL SLOW IVP PRN (10:41)
[2017-12-25] MEDS ORDERED: Propofol BOLUS 1,000 MG/100 ML VIAL IV PRN (10:41)
[2017-12-25] MEDS ORDERED: fentaNYL Citrate/PF 2,000 MCG in Sodium Chloride 0.9% 60 ML IV SCH (10:41)
--- NOTE | 2017-12-25 10:47 | OP ---
DATE OF PROCEDURE: 12/25/2017 PREOPERATIVE DIAGNOSIS: Thoracic aortic aneurysm. POSTOPERATIVE DIAGNOSES: Thoracic aortic aneurysm with near obstruction of the thoracic aorta. PROCEDURE: 1. TEVAR with a 37 x 15 [place] Tag endograft. 2. Arch aortogram. 3. Descending thoracic aortic aortogram. 4. Right femoral artery cutdown / exposure SURGEON: Jefferson Dooley M.D. ANESTHESIA: General endotracheal. ESTIMATED BLOOD LOSS: Less than 50 mL. FLUOROSCOPY TIME: 18.5 minutes. CONTRAST: 120 mL. PROCEDURE IN DETAIL: After consent was signed, the patient was brought to operating room and placed in supine position on the operating room table. Appropriate anesthetic monitor was placed and general endotracheal anesthesia induced. Chest, abdomen and legs were prepped and draped in usual sterile fashion. The right common femoral artery was exposed through a transverse groin incision. The femoral artery was controlled proximally with a tape. Percutaneous access of common femoral artery was obtained and a 5 [place] sheath placed. The patient was given 10,000 units of heparin. The patient was given 10,000 additional units of heparin later in the procedure to keep the ACT over 250. Bentson guidewire curled in the descending thoracic aorta just proximal to the aneurysm. A pigtail catheter was then placed in the descending thoracic aorta and a thoracic aortogram performed. This showed a near occlusion of the distal descending thoracic aorta. This was just distal to the aneurysm. The area of near occlusion was negotiated with angled glide catheter and Glidewire. Once the wire was in the ascending aorta a pigtail catheter was placed. The aortogram in the ascending aorta was then performed illuminating the aneurysm and defining the anatomy around the left subclavian artery. A Lunderquist wire was placed through the pigtail. A second wire was placed and the pigtail was rethreaded into the ascending aorta. 5 [place] sheath was removed and 24 [place] sheath placed into the abdominal aorta. A 37 x 15 endograft was selected and positioned through the aneurysm around the subclavian artery. A second aortogram was then performed in the ascending aorta, again illuminating the proximal landing zone. The graft was positioned appropriately and deployed. Followup angiogram showed a small endoleak on the greater curvature of the aorta. A [place] Tri-Lobe balloon was then used to open and seal the proximal. Followup angiogram showed good seal. At the area of stenosis, the [place] balloon was inflated and had a good result opening the aorta to approximately 60-70% of its normal diameter. I was reluctant to push this any further due the calcification and worry with dissection of the descending aorta. Catheters and guidewires were then removed. The sheath was removed and the arteriotomy repaired in a dual layer running fashion with 5-0 Prolene suture. 150 mg of protamine was given. The wound was copiously irrigated. There was a palpable pulse within the femoral artery at completion. Wounds were then closed in layers and Dermabond applied to the skin. The patient was transferred to the Intensive Care Unit still intubated and will be seen by Pulmonary for further weaning. . NELSON
--- NOTE | 2017-12-25 11:12 | PRG ---
DATE OF CONSULTATION: 12/25/2017 HISTORY: She is status post thoracic aortic aneurysm surgery through the right groin incision. Postoperatively, she was hypoxic. She left on the vent, intubated. She has severe COPD as per the p revious note from Dr. Madden who saw her. She was smoking up to half pack a day. In fact, she was sm oking in the hospital, I am told. She had a cath done which shows normal EF, normal coronaries. PFT shows severe COPD. She was discharged home and brought back for the surgery. She is presently intubated on the vent. PAST MEDICAL HISTORY: Extensively outlined, hypertension, lipidemia, COPD. PAST SURGICAL HISTORY: Hemorrhoids, right foot surgery from trauma. ALLERGIES: LISINOPRIL. MEDICATIONS FROM HOME: Supposed to have included Ventolin inhaler, Cozaar 100, DuoNeb, Lasix 80, Cor eg 25, Lipitor 40. She is now on Brovana neb treatments, Lasix, Coreg. I am going to start low dose steroids on her. PHYSICAL EXAMINATION: VITAL SIGNS: Otherwise, pulse 56, blood pressure 127/80, sats are 97%, 100%, 7 of PEEP. CHEST: Katie st revealed decreased breath sounds without any wheezing. CARDIAC: Normal S1, S2, no gallops. ABDOMEN: Soft, no mass. I do not see an x-ray postop, one is being ordered. Preoperative chest x-ray shows no acute infiltrates. IMPRESSION: 1. Chronic obstructive pulmonary disease. 2. Tobacco abuse. 3. Morbid obesity. 4. Thoracic aneurysm surgery performed cutaneously. PLAN: We will keep her intubated, neb treatments, steroids, supportive care. We will follow. Wean when stable. One-half hour critical care time.
[2017-12-25] MEDS: Bupropion 150 MG XL TAB PO SCH ×3 (11:25→21:25)
[2017-12-25] MEDS: Carvedilol 25 MG TAB PO SCH ×2 (11:25→21:15)
[2017-12-25] MEDS: Furosemide 80 MG TAB PO SCH (11:26)
[2017-12-25] MEDS: Losartan 25 MG TAB PO SCH (11:26)
[2017-12-25] MEDS: Hydrochlorothiazide 25 MG TAB PO SCH (11:26)
[2017-12-25 11:27] LABS: #Basophils 0.1 thou/uL (0.0-0.2); #Eosinphils 0.1 thou/uL (0.0-0.7); #Monocytes 1.1 thou/uL (0.11-0.59); #Neutrophils 9.1 thou/uL (1.40-6.50); %Basophils 0.7 % (0.0-1.0); %Eosinophils 0.8 % (0.0-10.0); %Lymphocytes 8.8 % (21.0-51.0); %Neutrophils 79.7 % (42.0-75.0); Hemoglobin 15.8 g/dL (12.0-16.0); Mean Corpuscular HGB CONC 28.5 g/dL (32.0-36.0); Mean Corpuscular Hemoglobin 26.6 pg (27.0-31.0); Mean Corpuscular Volume 93.5 fl (81.0-99.0); Mean Platelet Volume 8.7 fL (7.4-10.4); Platelet Count 146 thou/uL (130-400); RBC Distribution Width 15.7 % (11.5-14.5); Red Blood Cell (RBC) Count 5.92 mill/uL (4.20-5.40); White Blood Cell (WBC) Count 11.4 thou/uL (4.8-10.8)
[2017-12-25] MEDS: cefTRIAXone\\ROCEPHIN 1 GM in Sodium Chloride 0.9% 100 ML IVPB SCH (11:31)
[2017-12-25 11:38] LABS: Anion Gap 11 mmol/L (10-20); BUN (Urea Nitrogen) 19 mg/dL (9.8-20.1); Calc. Creatinine Clearance 135 mL/min (70-130); Calcium 8.8 mg/dL (7.8-10.44); Carbon Dioxide 35 mmol/L (22-29); Chloride 97 mmol/L (98-107); Estimated GFR-MDRD 73; Glucose 110 mg/dL (70-105); Potassium 3.7 mmol/L (3.5-5.1); Sodium 139 mmol/L (136-145)
[2017-12-25 11:39] LABS: Actual Bicarbonate (HCO3a) 36.8 mEq/L (22-28); Base Excess (BEa) 11.1 mEq/L (-2.0 to +3.0); CO2 Tension 51.8 mmHg (35.0-45.0); O2 Tension (PaO2) 76.6 mmHg (80.0-100.0); pH, Arterial 7.47 (7.35-7.45)
[2017-12-25 11:40] LABS: Calcium, Ionized 1.2 mmol/L (1.12-1.30); Hematocrit-ABG 28.1 % (36.0-47.0); Puncture Site ALINE
[2017-12-25 11:41] LABS: Peep/CPAP 7.5 cmH2O
[2017-12-25 11:45] LABS: MDiff Complete? YES; PLT Morphology Comment Appears Adequate; Stomatocytes SLIGHT = 2-5 cells (100X) (0-1/hpf)
--- NOTE | 2017-12-25 11:52 | RAD ---
PORTABLE AP CHEST XRAY: DATE: 12/25/17. HISTORY: Post TAVR. COMPARISON: 12/20/17. FINDINGS: Endotracheal tube is noted in place with the tip overlying the T3-4 level and above the level of the rekha. There has been interval postsurgical changes related to placement of a thoracic aortic stent graft in the region of the aortic arch and descending thoracic aorta. There is narrowing in the mid portion of the stent graft. The cardiac silhouette is magnified by projection. There is atelectasi s present at the left lung base with a suggestion of small left pleural effusion. Right lung is s[place] r. No other interval change. IMPRESSION: 1. Interval placement of a thoracic aortic stent graft. There is narrowing in the mid portion of th e stent graft. 2. Atelectasis left lung base with very small left pleural effusion. 3. Endotracheal tube noted in place which is above the level of the rekha. POS: [facility]
[2017-12-25 12:16] VITALS: BMI 40.0
[2017-12-25] MEDS: CEFAZOLIN/Water 2 GM/20 ML SYRINGE SLOW IVP SCH ×2 (15:20→21:16)
[2017-12-25] MEDS: Propofol 1,000 MG/100 ML VIAL IV PRN ×2 (16:12→23:55)
[2017-12-25] MEDS ORDERED: Hydrocortisone Sod Succ/PF 100 mg/2 ml Vial ONE (17:53)
[2017-12-25] MEDS ORDERED: PHENYLEPHRINE-NS 100 MCG/ML 10 ML SYRINGE ONE (17:53)
[2017-12-25] MEDS ORDERED: PROPOFOL 200 MG/20 ML VIAL ONE (17:53)
[2017-12-25] MEDS ORDERED: Heparin 10,000 UNITS/ 10 ML VIAL ONE (17:53)
[2017-12-25] MEDS ORDERED: Lidocaine 1% PF 5 ML VIAL ONE (17:53)
[2017-12-25] MEDS: Atorvastatin Calcium 40 MG TAB PO SCH (21:15)
[2017-12-26 04:18] LABS: #Lymphocytes 0.5 thou/uL (1.20-3.40); #Monocytes 0.8 thou/uL (0.11-0.59); #Neutrophils 11.1 thou/uL (1.40-6.50); %Basophils 0.1 % (0.0-1.0); %Eosinophils 0.1 % (0.0-10.0); %Lymphocytes 4.3 % (21.0-51.0); %Monocytes 6.4 % (0.0-10.0); %Neutrophils 89.2 % (42.0-75.0); Hemoglobin 17.8 g/dL (12.0-16.0); Mean Corpuscular HGB CONC 30.3 g/dL (32.0-36.0); Mean Corpuscular Hemoglobin 28.6 pg (27.0-31.0); Mean Corpuscular Volume 94.2 fl (81.0-99.0); Mean Platelet Volume 9.3 fL (7.4-10.4); Platelet Count 138 thou/uL (130-400); RBC Distribution Width 15.8 % (11.5-14.5); Red Blood Cell (RBC) Count 6.24 mill/uL (4.20-5.40); White Blood Cell (WBC) Count 12.4 thou/uL (4.8-10.8)
[2017-12-26 04:27] LABS: Anion Gap 13 mmol/L (10-20); BUN (Urea Nitrogen) 19 mg/dL (9.8-20.1); Calc. Creatinine Clearance 152 mL/min (70-130); Calcium 9.8 mg/dL (7.8-10.44); Carbon Dioxide 36 mmol/L (22-29); Chloride 97 mmol/L (98-107); Estimated GFR-MDRD 83; Glucose 133 mg/dL (70-105); Potassium 3.8 mmol/L (3.5-5.1); Sodium 142 mmol/L (136-145)
[2017-12-26] MEDS: CEFAZOLIN/Water 2 GM/20 ML SYRINGE SLOW IVP SCH ×2 (05:27→14:38)
[2017-12-26] MEDS: Propofol 1,000 MG/100 ML VIAL IV PRN (05:34)
--- NOTE | 2017-12-26 05:55 | PDOC.FM ---
- Subjective Subjective: Patient is intubated but arousable despite sedation. She reports pain in her throat due to tube and tries to convey another question but I am unable to interpret due to the tube. She is resting comfortably. No acute events overnight. - Objective MAR Reviewed: Yes Vital Signs & Weight: Vital Signs (12 hours) Temp Pulse Resp Pulse Ox 12/26/17 02:00 11 L 12/26/17 00:00 12 12/25/17 23:46 68 10 L 91 L 12/25/17 22:00 10 L 12/25/17 20:00 99.3 F 81 10 L 91 L 12/25/17 19:04 66 10 L 92 L 12/25/17 19:03 66 10 L 92 L 12/25/17 18:00 10 L Weight Admit Weight 106.594 kg Weight 109.089 kg Most Recent Monitor Data Heart Rate from ECG 65 NIBP 107/77 NIBP BP-Mean 88 Respiration from ECG 10 SpO2 90 I&O: 12/24/17 12/25/17 12/26/17 06:59 06:59 06:59 Intake Total 150 240 275.8 Output Total 650 765 Balance -500 240 -489.2 Result Diagrams: 12/26/17 03:25 12/26/17 03:25 <Marion Larsen - Last Filed: 12/26/17 07:47> - Objective Vital Signs & Weight: Vital Signs (12 hours) Pulse Resp BP Pulse Ox 12/26/17 09:12 69 24 H 89 L 12/26/17 08:00 15 12/26/17 07:48 67 10 L 92 L 12/26/17 06:42 72 157/74 H 12/26/17 06:41 67 10 L 92 L 12/26/17 06:00 11 L 12/26/17 04:00 12 12/26/17 02:00 11 L 12/26/17 00:00 12 12/25/17 23:46 68 10 L 91 L 12/25/17 22:00 10 L Weight Admit Weight 106.594 kg Weight 107.3 kg Most Recent Monitor Data Heart Rate from ECG 64 NIBP 108/87 NIBP BP-Mean 100 Respiration from ECG 13 SpO2 90 I&O: 12/25/17 12/26/17 12/27/17 06:59 06:59 06:59 Intake Total 240 586.5 35.1 Output Total 1055 107 Balance 240 -468.5 -71.9 Result Diagrams: 12/26/17 03:25 12/26/17 03:25 <Rosio Palmer - Last Filed: 12/26/17 09:42> Phys Exam - Physical Examination Constitutional: NAD intubated, sedated but arousable HEENT: moist MMs Respiratory: no wheezing rhonchi Cardiovascular: RRR systolic murmur Gastrointestinal: soft, non-tender, positive bowel sounds trace edema Neurological: normal sensation, moves all 4 limbs Psychiatric: normal affect, A&O x 3 Skin: cap refill <2 seconds <Marion Larsen - Last Filed: 12/26/17 07:47> Dx/Plan (1) Thoracic aortic aneurysm Code(s): I71.2 - THORACIC AORTIC ANEURYSM, WITHOUT RUPTURE Status: Acute (2) COPD (chronic obstructive pulmonary disease) Status: Acute (3) HTN (hypertension) Code(s): I10 - ESSENTIAL (PRIMARY) HYPERTENSION Status: Acute (4) Heart failure with preserved ejection fraction Code(s): I50.30 - UNSPECIFIED DIASTOLIC (CONGESTIVE) HEART FAILURE Status: Acute (5) Hyperlipidemia Code(s): E78.5 - HYPERLIPIDEMIA, UNSPECIFIED Status: Acute - Plan Plan: Thoracic Aortic Aneurysm s/p repair - post op day #[address] Dooley which was successful, finding of partial occlusion of the aorta at that time which has been repaired - currently intubated and sedated and in ICU - SIMV, PS of 10, requiring 70% O2 and PEEP at 5 - Pulm on the case - will likely wean off O2 requirement and then attempt extubation either today or tomorrow COPD - recent PFT's showing pretty severe obstruction and component of restrictive disease - prior to admission was not on o2 however has required 3L continuously throughout her hospital stay - plan for home o2 walking trial at the day of discharge - Continue Brovana and duonebs in the hospital, will need to go home with combo inhaler in the place of duoneb - Pulm following, appreciate recs HFpEF - Echo with grade 2/3 diastolic dysfunction, EF 55-60% - BNP 1118, not clinically overloaded on admission, if IVF needed, will give gentle fluids and monitor closely - continue home lasix 80mg HTN - better control since adding HCTZ - continue losartan/hctz combo pill - continue coreg 25mg BID, no PO meds at this time d/t intubation - BP have been well controlled HLD - continue home meds Tobacco Abuse - Counseled on cessation - Continue wellbutrin and wean off cigarettes - hold until PO Code: full <Marion Larsen - Last Filed: 12/26/17 07:47> Attending Addendum - Attending Addendum Date/Time: 12/26/17940 I personally evaluated the patient and discussed the management with Dr. Larsen. I agree with the History, Examination, Assessment and Plan documented above with any addition or exceptions noted below. The patient remains intubated but is awake and follows commands. FiO2 is at 70% . Pt will be weaned per pulmonology. <Rosio Palmer - Last Filed: 12/26/17 09:42>
[2017-12-26] MEDS: Arformoterol 15 MCG/2 ML NEB NEB SCH ×2 (07:48→18:30)
[2017-12-26 08:12] LABS: Actual Bicarbonate (HCO3a) 36.6 mEq/L (22-28); Base Excess (BEa) 9.6 mEq/L (-2.0 to +3.0); CO2 Tension 56.4 mmHg (35.0-45.0); Hematocrit-ABG 59.3 % (36.0-47.0); O2 Tension (PaO2) 66.6 mmHg (80.0-100.0); pH, Arterial 7.43 (7.35-7.45)
[2017-12-26 08:13] LABS: Calcium, Ionized 1.2 mmol/L (1.12-1.30); Hemoglobin (Hb) 17.7 g/dL (12.0-16.0); Puncture Site ALINE
[2017-12-26] MEDS: Bupropion 150 MG XL TAB PO SCH ×2 (10:20→20:52)
[2017-12-26] MEDS: Carvedilol 25 MG TAB PO SCH ×2 (10:20→20:58)
--- NOTE | 2017-12-26 11:01 | PRG ---
DATE OF SERVICE: 12/26/2017 SUBJECTIVE: She is intubated on the vent, sedated. OBJECTIVE: VITAL SIGNS: Pulse 64, blood pressure was 101/74, line blood pressure is different 150/70, sats are 95%. GENERAL: She is awake, responsive. I's & O's have been 586 in, 105 out. CHEST: Chest reveals decreased breath sounds without any wheezing. CARDIAC: Normal S1, S2, no gallops. ABDOMEN: Soft, no masses. LABORATORY DATA: White count 12,000, H&H is 17 and 58, platelet count is 138, pO2 66, pCO2 56%, 43 o n 70%, rate of 10, 500 tidal volume. Electrolytes were normal. X-RAY FINDINGS: Chest x-ray did not show any obvious infiltrates. IMPRESSION: 1. Status post abdominal aortic aneurysm repair. 2. Severe end-stage chronic obstructive pulmonary disease. 3. Polycythemia. PLAN: Continue neb treatments, continue steroids. Hold sedation, try and wean if possible. One-half hour critical care time.
[2017-12-26] MEDS: cefTRIAXone\\ROCEPHIN 1 GM in Sodium Chloride 0.9% 100 ML IVPB SCH (11:18)
[2017-12-26] MEDS: Sodium Chloride 0.9% 1,000 ML IV SCH (11:18)
[2017-12-26] MEDS: Losartan 25 MG TAB PO SCH (14:35)
[2017-12-26] MEDS: Acetaminophen/Codeine 30-300mg Tablet PO PRN (16:55)
[2017-12-26] MEDS: Atorvastatin Calcium 40 MG TAB PO SCH (20:52)
--- NOTE | 2017-12-27 06:01 | PDOC.FM ---
- Subjective Subjective: Patient is awake and alert, talking and in normal spirits. She was extubated yesterday morning and has had no problems overnight. She reports some mild back pain from lying in bed but otherwise feels good. - Objective MAR Reviewed: Yes Vital Signs & Weight: Vital Signs (12 hours) Temp Pulse Resp Pulse Ox 12/27/17 04:00 96 12/27/17 00:05 62 12 97 12/27/17 00:00 98 12/26/17 20:00 99.5 F 77 20 95 12/26/17 18:30 77 20 96 Weight Admit Weight 106.594 kg Weight 107.3 kg Most Recent Monitor Data Heart Rate from ECG 67 NIBP 100/81 NIBP BP-Mean 93 Respiration from ECG 20 SpO2 95 I&O: 12/25/17 12/26/17 12/27/17 06:59 06:59 06:59 Intake Total 240 586.5 971.1 Output Total 1055 945 Balance 240 -468.5 26.1 Result Diagrams: 12/26/17 03:25 12/26/17 03:25 <Marion Larsen - Last Filed: 12/27/17 07:54> - Objective Vital Signs & Weight: Vital Signs (12 hours) Temp Pulse Resp BP Pulse Ox 12/27/17 13:45 100 12/27/17 13:42 65 12 12/27/17 12:26 98.7 F 66 18 165/79 H 95 12/27/17 12:00 98.2 F 12/27/17 10:54 69 12/27/17 08:48 69 14 93 L 12/27/17 08:00 98.2 F 69 14 93 L 12/27/17 07:29 93 L 12/27/17 07:28 69 21 H 93 L 12/27/17 04:00 96 Weight Admit Weight 106.594 kg Weight 106.3 kg Most Recent Monitor Data Heart Rate from ECG 64 NIBP 142/66 NIBP BP-Mean 99 Respiration from ECG 22 SpO2 95 I&O: 12/26/17 12/27/17 12/28/17 06:59 06:59 06:59 Intake Total 586.5 1575.1 606 Output Total 1055 1070 255 Balance -468.5 505.1 351 Result Diagrams: 12/26/17 03:25 12/26/17 03:25 <SpencerRosio - Last Filed: 12/27/17 15:42> Phys Exam - Physical Examination Constitutional: NAD Respiratory: no rales scattered wheezing Cardiovascular: RRR, no significant murmur Gastrointestinal: soft, non-tender Musculoskeletal: no edema Neurological: moves all 4 limbs Psychiatric: A&O x 3 Deviation from normal: R inguinal incision site c,d,i <Marion Larsen - Last Filed: 12/27/17 07:54> Dx/Plan (1) Thoracic aortic aneurysm Code(s): I71.2 - THORACIC AORTIC ANEURYSM, WITHOUT RUPTURE Status: Acute (2) COPD (chronic obstructive pulmonary disease) Status: Acute (3) HTN (hypertension) Code(s): I10 - ESSENTIAL (PRIMARY) HYPERTENSION Status: Acute (4) Heart failure with preserved ejection fraction Code(s): I50.30 - UNSPECIFIED DIASTOLIC (CONGESTIVE) HEART FAILURE Status: Acute (5) Hyperlipidemia Code(s): E78.5 - HYPERLIPIDEMIA, UNSPECIFIED Status: Acute - Plan Plan: Thoracic Aortic Aneurysm s/p repair - post op day #[address] Dooley which was successful, finding of partial occlusion of the aorta at that time which has been repaired - extubated successfully yesterday, now on 3L O2 which is what she was requiring prior to surgery, VSS, consider moving out of the unit today - Continue Solumedrol and Duonebs - Pulm on the case - PT/OT - pain control with tramadol and tylenol COPD - recent PFT's showing pretty severe obstruction and component of restrictive disease - prior to admission was not on o2 however has required 3L continuously throughout her hospital stay - plan for home o2 walking trial at the day of discharge - Continue Brovana and duonebs in the hospital, will need to go home with combo inhaler in the place of duoneb - Pulm following, appreciate recs HFpEF - Echo with grade 2/3 diastolic dysfunction, EF 55-60% - BNP 1118, not clinically overloaded on admission, if IVF needed, will give gentle fluids and monitor closely - continue home lasix 80mg HTN - better control since adding HCTZ - continue losartan/hctz combo pill - continue coreg 25mg BID - currently on the low end of normotensive, hold BP meds for now and monitor HLD - continue home meds Tobacco Abuse - Counseled on cessation - Continue wellbutrin and wean off cigarettes - hold until PO Code: full VTE PPx: SCD <Marion Larsen - Last Filed: 12/27/17 07:54> Attending Addendum - Attending Addendum Date/Time: 12/27/17 1544 I personally evaluated the patient and discussed the management with Dr. Larsen. I agree with the History, Examination, Assessment and Plan documented above with any addition or exceptions noted below. Patient was extubated yesterday. She is doing well and states pain is controlled. She is back to baseline O2 level. Can likely go to the floor today if ok with CV surg. <Rosio Palmer - Last Filed: 12/27/17 15:42>
[2017-12-27] MEDS: Sodium Chloride 0.9% 1,000 ML IV SCH (06:15)
[2017-12-27] MEDS: Losartan 25 MG TAB PO SCH (08:02)
[2017-12-27] MEDS: Carvedilol 25 MG TAB PO SCH ×2 (08:02→21:13)
[2017-12-27] MEDS: Bupropion 150 MG XL TAB PO SCH ×2 (08:02→21:13)
[2017-12-27] MEDS: Arformoterol 15 MCG/2 ML NEB NEB SCH ×2 (08:48→19:24)
[2017-12-27] MEDS: Amlodipine 5 MG TAB PO SCH (10:54)
--- NOTE | 2017-12-27 11:58 | PRG ---
DATE OF SERVICE: 12/27/2017 SUBJECTIVE: Awake, alert and responsive, in no distress. OBJECTIVE: VITAL SIGNS: Sats are 93% in about 3 liters, blood pressure 118/62, respiration 18, pulse 80. CHEST: Decreased breath sounds without any wheezing. CARDIAC: Normal S1, S2. No gallops. ABDOMEN: Soft, no masses. IMPRESSION: 1. Obesity status post thoracic aneurysm repair. 2. End stage chronic obstructive pulmonary disease. 3. Polycythemia. PLAN: Switch to oral prednisone, neb treatment and supportive care. She can be transfer out of the ICU. We will follow.
[2017-12-27] MEDS: Atorvastatin Calcium 40 MG TAB PO SCH (21:13)
[2017-12-27] MEDS: Acetaminophen/Codeine 30-300mg Tablet PO PRN (21:17)
--- NOTE | 2017-12-28 06:31 | PDOC.FM ---
- Subjective Subjective: Patient is doing very well this morning. She reports feeling back to her baseline and is ready to go home. She reports pain in her back from lying in bed, but otherwise has no pain. - Objective MAR Reviewed: Yes Vital Signs & Weight: Vital Signs (12 hours) Temp Pulse Resp BP Pulse Ox 12/28/17 04:00 98 F 57 L 20 138/78 94 L 12/28/17 00:29 63 12 12/27/17 20:00 98 F 63 20 157/85 H 98 12/27/17 19:23 70 16 86 L Weight Admit Weight 106.594 kg Weight 106.277 kg Most Recent Monitor Data Heart Rate from ECG 64 NIBP 142/66 NIBP BP-Mean 99 Respiration from ECG 22 SpO2 95 I&O: 12/26/17 12/27/17 12/28/17 06:59 06:59 06:59 Intake Total 586.5 1575.1 846 Output Total 1055 1070 1155 Balance -468.5 505.1 -309 Result Diagrams: 12/26/17 03:25 12/26/17 03:25 Phys Exam - Physical Examination Constitutional: NAD HEENT: moist MMs mild scattered wheezing, much improved from admission Cardiovascular: RRR 2/6 systolic murmur Gastrointestinal: soft, non-tender trace edema Neurological: moves all 4 limbs Psychiatric: A&O x 3 Dx/Plan (1) Thoracic aortic aneurysm Code(s): I71.2 - THORACIC AORTIC ANEURYSM, WITHOUT RUPTURE Status: Acute (2) COPD (chronic obstructive pulmonary disease) Status: Acute (3) HTN (hypertension) Code(s): I10 - ESSENTIAL (PRIMARY) HYPERTENSION Status: Acute (4) Heart failure with preserved ejection fraction Code(s): I50.30 - UNSPECIFIED DIASTOLIC (CONGESTIVE) HEART FAILURE Status: Acute (5) Hyperlipidemia Code(s): E78.5 - HYPERLIPIDEMIA, UNSPECIFIED Status: Acute - Plan Plan: Thoracic Aortic Aneurysm s/p repair - post op day #[address] Dooley which was successful, finding of partial occlusion of the aorta at that time which has been repaired - extubated successfully yesterday, now on 3L O2 which is what she was requiring prior to surgery, VSS, likely d/c home today - Continue PO steroids and Duonebs - Pulm on the case - PT/OT - pain control with tramadol and tylenol#3 COPD - recent PFT's showing pretty severe obstruction and component of restrictive disease - prior to admission was not on o2 however has required 3L continuously throughout her hospital stay - plan for home o2 walking trial at the day of discharge - Continue Leslye and hermila in the hospital, will need to go home with combo inhaler in the place of duoneb - Pulm following, appreciate recs - O2 walking trial today HFpEF - Echo with grade 2/3 diastolic dysfunction, EF 55-60% - BNP 1118, not clinically overloaded on admission, if IVF needed, will give gentle fluids and monitor closely - continue home lasix 80mg HTN - well controlled - continue amlodipine 5mg daily and losartan - continue coreg 25mg BID HLD - continue home meds Tobacco Abuse - Counseled on cessation - Continue wellbutrin and wean off cigarettes Code: full VTE PPx: SCD Dispo: likely d/c home today
[2017-12-28] MEDS: Arformoterol 15 MCG/2 ML NEB NEB SCH (07:15)
[2017-12-28] MEDS ORDERED: predniSONE 20 MG TAB PO SCH (08:00)
[2017-12-28] MEDS: Amlodipine 5 MG TAB PO SCH (08:40)
[2017-12-28] MEDS: Losartan 25 MG TAB PO SCH (08:40)
[2017-12-28] MEDS: Bupropion 150 MG XL TAB PO SCH (08:40)
[2017-12-28] MEDS: Carvedilol 25 MG TAB PO SCH (08:40)
[2017-12-28 08:41] VITALS: BP 132/62
[2017-12-28 08:45] VITALS: TEMP 98.2
[2017-12-28] MEDS ORDERED: Aspirin 325 mg Enteric Coated Tablet PO SCH (09:00)
--- NOTE | 2017-12-28 09:53 | PRG ---
DATE OF SERVICE: 12/28/2017 This morning, she is better, less pain, less shortness of breath. PHYSICAL EXAMINATION: VITAL SIGNS: Sats 90% on 2 liters, respiration is 18, temperature 98, blood pressure is 130/62. CHEST: Chest revealed decreased breath sounds, no wheezing. CARDIAC: Normal S1-S2. No gallops. ABDOMEN: Soft without any mass. IMPRESSION: 1. Chronic obstructive pulmonary disease. 2. Status post coronary artery bypass graft. PLAN: Continue PT and supportive care. I will follow.
--- NOTE | 2017-12-28 11:49 | PDOC.CTH ---
Cardiology Progress Note - Subjective She had her procedure without issue.s She is doing well. - Objective Vital Signs Temp Pulse Resp BP BP Pulse Ox 12/28/17 08:44 98.2 F 61 18 132/62 95 12/28/17 08:40 58 L 132/62 12/28/17 08:00 98.2 F 61 18 95 12/28/17 07:15 58 L 16 12/28/17 04:00 98 F 57 L 20 138/78 94 L 12/28/17 00:29 63 12 Admit Weight 235 lb Weight 234 lb 4.8 oz 12/27/17 12/28/17 12/29/17 06:59 06:59 06:59 Intake Total 1575.1 846 Output Total 1070 1155 Balance 505.1 -309 - Physical Examination General/Neuro: alert & oriented x3, NAD Neck: no JVD present Lungs: unlabored respirations Heart: RRR Abdomen: NT/ND Extremities: other: (no edema) - Telemetry Telemetry Rhythm: NSR - Labs Result Diagrams: 12/26/17 03:25 12/26/17 03:25 Troponin/CKMB CK-MB (CK-2) 3.4 ng/mL (0-6.6) 12/20/17 15:32 Troponin I 0.052 ng/mL (< 0.028) H 12/20/17 15:32 - Assessment/Plan 1. Mild CAD. 2. Thoracic aortic aneurysm s/p repair. 3. COPD 4. Tobacco use PLAN: - Doing well. - Aspirin and statin for life. - Follow up in the office in 3 months.
--- NOTE | 2017-12-28 14:36 | ADD-PRG ---
DATE OF SERVICE: 12/28/2017 This is an addendum to the note of Dr. Marion Larsen. Ms. Jauregui recently underwent a thoracic aortic dissection repair. She also has significant smokin g history and likely COPD. In any event, she is clinically stable and able for discharge today. We are counseling her again about smoking cessation. We have discussed with her, her need for some COPD medications as well as close follow up of her thoracic dissection repair. She is also on atorvastat in and aspirin and will be for life.
[2017-12-29 14:23] LABS: Actual Bicarbonate (HCO3a) 34.3 mEq/L (22-28); Base Excess (BEa) 10.2 mEq/L (-2.0 to +3.0); CO2 Tension 42.7 mmHg (35.0-45.0); Hematocrit-ABG 55.5 % (36.0-47.0); O2 Tension (PaO2) 46.5 mmHg (80.0-100.0); pH, Arterial 7.52 (7.35-7.45)
[2017-12-29 14:24] LABS: Analyzer IN Cardio OR; Calcium, Ionized 1.1 mmol/L (1.12-1.30); Hemoglobin (Hb) 16.6 g/dL (12.0-16.0); Puncture Site ALINE
== END 2017-12-28 14:43 | disposition home or self-care (01) | DRG 217 ==
LOC: INTOOBSV 12:46 → 2SW 12:46 → OBSVTOIN 12-22 10:25 → 2NO 12-22 19:15 → CCU 12-25 10:13 → 2NO 12-27 12:45
PROVIDERS: ADMIT Family Medicine; ATTEND Family Medicine
PROC: 4A023N7 Measurement of Cardiac Sampling and Pressure, Left Heart, Percutaneous Approach (ICD-10-PCS; 2017-12-22)
PROC: B2111ZZ Fluoroscopy of Multiple Coronary Arteries using Low Osmolar Contrast (ICD-10-PCS; 2017-12-22)
PROC: 02VW3DZ Restriction of Thoracic Aorta, Descending with Intraluminal Device, Percutaneous Approach (ICD-10-PCS; principal; 2017-12-25)
PROC: B3101ZZ Fluoroscopy of Thoracic Aorta using Low Osmolar Contrast (ICD-10-PCS; 2017-12-25)
PROC: 5A1935Z Respiratory Ventilation, Less than 24 Consecutive Hours (ICD-10-PCS; 2017-12-25)
PROC: 0BH17EZ Insertion of Endotracheal Airway into Trachea, Via Natural or Artificial Opening (ICD-10-PCS; 2017-12-25)
DX: I71.2 Thoracic aortic aneurysm, without rupture (principal); I42.0 Dilated cardiomyopathy; I50.32 Chronic diastolic (congestive) heart failure; R06.00 Dyspnea, unspecified; F17.210 Nicotine dependence, cigarettes, uncomplicated; J44.9 Chronic obstructive pulmonary disease, unspecified; E78.5 Hyperlipidemia, unspecified; D75.1 Secondary polycythemia; E66.01 Morbid (severe) obesity due to excess calories; Z68.39 Body mass index [BMI] 39.0-39.9, adult; I11.0 Hypertensive heart disease with heart failure; Z89.429 Acquired absence of other toe(s), unspecified side; I25.10 Atherosclerotic heart disease of native coronary artery without angina pectoris; I47.9 Paroxysmal tachycardia, unspecified
CPT/HCPCS: 36415; 36416; 71045; 71046; 76001; 80048; 80053; 81001; 82553; 82565; 82805; 83735; 83880; 84443; 84484; 85014; 85018; 85025; 85049; 86850; 86900; 86901; 90471; 90732; 93005; 93010; 93306; 93458; 94002; 94003; 94640; 99152; A4216; C1769; G0009; J0696; J1642; J1644; J1650; J1720; J2001; J2250; J2704; J2720; J2920; J3010; J7050; J7506; J7620

== ENCOUNTER 2018-04-05 07:56 | Outpatient (CLI) | payer OTHER ==
[2018-04-05] MEDS ORDERED: Iopamidol 370 76% 100 ML VIAL ONE (08:28)
--- NOTE | 2018-04-05 10:30 | CT ---
CT ANGIOGRAM OF THE THORACIC AORTA: HISTORY: Followup aneurysm repair. COMPARISON: 09/21/17. TECHNIQUE: CT angiogram of the chest is performed in the axial plane. Three-dimensional reformatted images are submitted for interpretation. FINDINGS: No mediastinal mass, lymphadenopathy, or hematoma. Heart size is within normal limits. No significa nt pericardial fluid. The visualized upper solid organs are unremarkable. Trachea and central bronchi are patent. Linear opacity in the right upper lobe likely representing s ubsegmental atelectasis or scar. No suspicious masses or consolidation. No pleural effusion. No pn eumothorax. Minimal atelectatic change in both lower lobes. No lytic or blastic lesions in the osseous structures. Stable endovascular aneurysmal repair with a stent originating just beyond the origin of the left car otid artery extending inferiorly into the proximal thoracic aorta. There is a calcified mural thromb us, at the level of the aortic arch. This thrombus is unchanged. Additional noncalcified mural thro mbus is noted. No evidence of aneurysmal dilatation. The aortic root is unremarkable. Based on limitations of this exam (lack of noncontrast images), no evidence of an endoleak. At the level of the main pulmonary artery, the ascending thoracic aorta measures 3.7 x 3.7 cm. At th e level of the aortic arch, the diameter is 3.7 cm in the coronal plane. IMPRESSION: Stable examination. Stable calcified aneurysm with endovascular stent repair. POS: [facility]
== END 2018-04-05 07:57 | disposition home or self-care (01) ==
LOC: CT 07:56
PROVIDERS: ATTEND Thoracic Surgery (Cardiothoracic Vascular Surgery)
DX: I71.2 Thoracic aortic aneurysm, without rupture (principal); Z98.890 Other specified postprocedural states
CPT/HCPCS: 71275

== ENCOUNTER 2018-10-06 08:05 | Outpatient (CLI) | payer OTHER ==
[2018-10-06] MEDS ORDERED: Iopamidol 370 76% 100 ML VIAL ONE (08:15)
--- NOTE | 2018-10-06 11:33 | CT ---
CTA CHEST UTILIZING IV CONTRAST AND 3D REFORMATTED IMAGING: Date: 10/06/18 INDICATION: History of thoracic aortic aneurysm repair. COMPARISON: Prior exam dated 04/05/18. FINDINGS: Endograft stent involving the aortic arch and descending thoracic aorta is unchanged. The excluded an eurysmal sac has slightly contracted and now measures 4.5 at the level of the descending thoracic aor ta. The lumen appears patent. The aortic arch and remaining descending thoracic aorta is within edda l limits. The visualized upper abdominal aorta is normal in caliber. The SMA and renal arteries appea r widely patent. The celiac arteries appear widely patent. No consolidation is evident. There are alejandro e areas of subsegmental volume loss involving both lower lobes, which may be related to depth of insp iration and supine positioning. No definite acute osseous abnormality is evident. IMPRESSION: Decreasing size of the excluded aneurysmal sac involving the distal thoracic aorta now measuring up t o 4.5 cm. Endograft stent remains patent. POS: [facility]
== END 2018-10-06 08:06 | disposition home or self-care (01) ==
LOC: CT 08:05
PROVIDERS: ATTEND Thoracic Surgery (Cardiothoracic Vascular Surgery)
DX: I71.2 Thoracic aortic aneurysm, without rupture (principal); Z95.828 Presence of other vascular implants and grafts
CPT/HCPCS: 71275; Q9967

== ENCOUNTER 2020-06-18 11:38 | Inpatient (IN) | payer OTHER, SELFPAY ==
[~2020-06-18 11:38] MED LIST: Magnevist 469MG/ML 20 ML VIAL ONE
[2020-06-18] MEDS ORDERED: hydrALAZINE 20 MG/ML VIAL SLOW IVP PRN (12:52)
[2020-06-18] MEDS ORDERED: Labetalol HCl 100 MG/20 ML VIAL SLOW IVP PRN (12:52)
[2020-06-18 13:15] LABS: PTT 34.1 sec (22.9-36.1); Prothrombin Time 13.5 sec (12.0-14.7)
[2020-06-18 13:16] LABS: #Eosinphils 0.1 thou/uL (0.0-0.7); #Lymphocytes 1.3 thou/uL (1.20-3.40); #Monocytes 1.2 thou/uL (0.11-0.59); %Basophils 0.4 % (0.0-1.0); %Eosinophils 1.3 % (0.0-10.0); %Lymphocytes 11.3 % (21.0-51.0); %Monocytes 10.2 % (0.0-10.0); %Neutrophils 76.8 % (42.0-75.0); Hemoglobin 19.6 g/dL (12.0-16.0); Mean Corpuscular Volume 93.3 fL (78.0-98.0); Mean Platelet Volume 10.2 fL (7.4-10.4); Platelet Count 152 thou/uL (130-400); RBC Distribution Width 17.4 % (11.5-14.5); Red Blood Cell (RBC) Count 6.99 mill/uL (4.20-5.40); White Blood Cell (WBC) Count 11.7 thou/uL (4.8-10.8)
[2020-06-18 13:28] LABS: ALT (SGPT) 23 U/L (8-55); AST (SGOT) 46 U/L (5-34); Albumin 3.6 g/dL (3.5-5.0); Alkaline Phosphatase 79 U/L (40-110); Anion Gap 17 mmol/L (10-20); BUN (Urea Nitrogen) 16 mg/dL (9.8-20.1); Bilirubin, Total 1.2 mg/dL (0.2-1.2); Calc. Creatinine Clearance 0 mL/min (70-130); Calcium 9.8 mg/dL (7.8-10.44); Carbon Dioxide 31 mmol/L (22-29); Chloride 98 mmol/L (98-107); Glucose 92 mg/dL (70-105); Potassium 4.2 mmol/L (3.5-5.1); Protein, Total 6.6 g/dL (6.0-8.3); Sodium 142 mmol/L (136-145)
--- NOTE | 2020-06-18 13:40 | PDOC.FPRHP ---
- History of Present Illness Chief Complaint: Found down History of Present Illness: History obtained from EMS and ED physician as patient is unable to communicate due to dysarthria and aphasia. When patient did not show up for work today a coworker performed a wellness check and found patient down at home lying in her feces, unable to ambulate and called EMS. Patient was last seen by her coworkers on Thursday, June 13. I contacted patient's , Lluvia Greene, who explains she last spoke to patient a week ago and her main medical problem is COPD for which she uses inhalers daily. Patient was last seen by Dr. Posada in 2017 and last had her medications filled at that time. ED Course: CT brain revealed evidence of L MCA and parenchymal hematoma. MRI brain revealed subacute L MCA. - Allergies/Adverse Reactions Allergies Allergy/AdvReac Type Severity Reaction Status Date / Time lisinopril Allergy Verified 12/24/17 03:30 - Home Medications Medication Instructions Recorded Confirmed Type Furosemide [Lasix] 40 mg PO PRN PRN 06/19/20 06/19/20 History - History PMHx: (obtained from clinic records) COPD, HTN, HFpEF, thoracic aortic aneurysm s/p TAVR 2017 PSHx: (obtained from clinic records) toe amputations >20 years ago FHx: not-obtained Social: (obtained from , Lluvia) daily smoker - Review of Systems ROS unobtainable: other (due to expressive aphasia) - Vital signs BP: 143/85 HR: 79 RR: 20 Tmax: 98.8 Pox: 97% on 3L Wt: 111kg - Physical Exam -Constitutional: awake, alert, GSC 12 HEENT: normocephalic and atraumatic, PERRLA, EOMI, no scleral icterus, grossly normal hearing Neck: no JVD Heart: RRR, pulses present, no edema Lungs: CTAB, no respiratory distress Abdomen: soft, no masses/distention Musculoskeletal: normal structure -Musculoskeletal: decreased strength in right upper and lower extremities Skin: no rash/lesions Heme/Lymphatic: no purpura FMR H&P: Results - Labs Result Diagrams: 06/20/20 06:33 06/20/20 06:33 Lab results: WBC 11.7 thou/uL (4.8-10.8) H 06/18/20 12:49 Hgb 19.6 g/dL (12.0-16.0) H 06/18/20 12:49 Hct 65.2 % (36.0-47.0) H* 06/18/20 12:49 MCV 93.3 fL (78.0-98.0) 06/18/20 12:49 Plt Count 152 thou/uL (130-400) 06/18/20 12:49 Neutrophils % 76.8 % (42.0-75.0) H 06/18/20 12:49 Sodium 142 mmol/L (136-145) 06/18/20 12:49 Potassium 4.2 mmol/L (3.5-5.1) 06/18/20 12:49 Chloride 98 mmol/L (98-107) 06/18/20 12:49 Carbon Dioxide 31 mmol/L (22-29) H 06/18/20 12:49 BUN 16 mg/dL (9.8-20.1) 06/18/20 12:49 Creatinine 0.64 mg/dL (0.6-1.1) 06/18/20 12:49 Glucose 92 mg/dL (70-105) 06/18/20 12:49 Lactic Acid 2.1 mmol/L (0.5-2.2) 06/18/20 12:49 Calcium 9.8 mg/dL (7.8-10.44) 06/18/20 12:49 Total Bilirubin 1.2 mg/dL (0.2-1.2) 06/18/20 12:49 AST 46 U/L (5-34) H 06/18/20 12:49 ALT 23 U/L (8-55) 06/18/20 12:49 Alkaline Phosphatase 79 U/L (40-110) 06/18/20 12:49 Serum Total Protein 6.6 g/dL (6.0-8.3) 06/18/20 12:49 Albumin 3.6 g/dL (3.5-5.0) 06/18/20 12:49 - EKG Interpretation EKG: sinus rhythm - Radiology Interpretation Chest x-ray Status: report reviewed by me (no acute process) CT scan - head Status: report reviewed by me (suspicious for L MCA Infarct, 1.2 cm left external capsular parenchymal hematoma) MRI - head Status: report reviewed by me (L MCA distribution infarct) Other Status: report reviewed by me (CT cervical spine: degenerative changes, no acute process) FMR H&P: A/P - Plan 55 yo F with a history of COPD and thoracic aortic aneurysm s/p TAVR in 2018 presenting for L MCA infarct L MCA ischemic infarct - Patient was found down at home and presented with expressive aphasia and R sided hemiparesis. Last seen by coworkers on Jun 13. - CT brain: evidence of L MCA infarct, 1.2 cm left external capsular parenchymal hematoma - MRI brain: subacute L MCA infarct distribution - permissive HTN for 24 hours, q4h neuro checks - MI aspirin 300mg, statin when tolerating PO - lipids, TSH, Mg, Phos, CK - ECHO pending - Neurosurgery consulted in ED - Stroke team, neurology consult - PT, OT, speech consult NSTEMI type II - likely related to hypovalemia - trop 0.05 - EKG: sinus rhythm - trend trops - LR 200mL/hr COPD - Per partner, patient uses inhalers at home Hx thoracic aortic aneurysm s/p TAVR 2018 - Repaired [place] [address] Dooley - unaware if patient has had any subsequent follow-up HTN - Will restart home medications when tolerating PO HFpEF - repeat ECHO pending for stroke workup DVT: SCDs Code: FULL PCP: Swetha Dispo: Admit to stroke. eLOS >48 hours pending stroke workup and evaluation. FMR H&P: Upper Level - Plan Date/Time: 06/18/20 1340 Toribio Pagan DO, have evaluated this patient and agree with findings/plan as outlined by buyer intern resident. Pertinent changes/additions are listed here. 55 yo female found down, only garbled speech at this time, hx obtained from records and significant other. last seen normal 5 days ago, ems found on ground today soiled, transported to ED. she responds to verbal commands occasionally but unable to communicate otherwise. she was last seen in our clinic 2 years ago with last med fills at that time. reported that she has been taking her inhalers but no other meds. In the ED she was given asa and 1L, CT showed possible parenchymal hemorrhage, neurosurg consulted. MRI reveals infarct in the L MCA distribution. labs sig for elevated h&h, trop, and ckmb. cxr wnl. VSS in ED, on my exam she has dysphonia and strength 4/5 in LUE and b/l LE, 0/5 in RUE. unable to complete further neuro exam 2/2 likely receptive aphasia. Acute CVA in distribution of L MCA causing right sided deficit: admit to stroke, consult stroke team, asa pr and statin when tolerating PO, risk stratification labs and imaging, no hemorrhage seen on MRI. unknown timing of cva, will allow permissive htn. NSTEMI type II, likely related to hypovolemia, obtain CK, cont ivf rescus, trend trops. please see buyer intern note for mgmt of chronic medical problems. Addendum - Attending - Attending Attestation Date/Time: 06/18/20 [id number] I personally evaluated the patient and discussed the management with Dr. Krishna I agree with the History, Examination, Assessment and Plan documented above with any addition or exceptions noted below - 55 yo F with h/o COPD, HFpEF, HTN and thoracic aneursym s/p TAVR presented after being found by co-worker when she had not come to work. Last seen normal on Thursday (06/13). She was found lying in feces and unable to ambulate or speak. Afebrile VSS. Exam repeated by me and agree with resident's findings. MRI brain with left MCA distribution infarct. A/P: 1) Left MCA CVA with expressive aphasia and right hemiparesis - Admit to stroke. PT/OT/ST consult. Neuro consult. Rectal ASA until swallow evaluated. 2) HTN- no known meds; will allow permissive HTN for 24 hours and then readdress. 3) COPD- nebs as needed.
--- NOTE | 2020-06-18 13:45 | RAD ---
PORTABLE CHEST 1 VIEW: Date: 06/18/2020 Time: 1221 hours HISTORY: Altered mental status, right-sided weakness, stroke. COMPARISON: 12/25/2017. FINDINGS: The heart is enlarged. Aortic stent is again seen. The lungs are expanded without lobar consolidation , pneumothoraces, jose pulmonary edema, or pleural effusions. IMPRESSION: No acute process. POS: [facility]
--- NOTE | 2020-06-18 13:49 | CT ---
CT BRAIN: Date: 06/18/2020 PROVIDED CLINICAL HISTORY: Right-sided weakness, found down. FINDINGS: No comparisons. The ventricular system appears normal in size and morphology. There is a 1.2 cm hyperdense focus invo lving the left external capsule compatible with parenchymal hematoma. There is loss of martinez-white dif ferentiation involving the left insula. There is loss of martinez-white differentiation involving portion s of the left parietal cortex. There is no shift of the midline structures. The basilar cisterns appe ar patent. The osseous structures and extracranial soft tissues appear unremarkable. IMPRESSION: 1. 1.2 cm left external capsular parenchymal hematoma. 2. Findings suspicious for left MCA distribution infarction. Findings communicated to Dr. Roberts via telephone at 1231 hours on 06/18/2020. CODE CR. POS: [facility]
[2020-06-18 13:50] LABS: Bacteria/HPF None Seen HPF (None Seen); Bilirubin 1+ (Negative); Blood, Urine Trace (Negative); Calcium Oxalate Crystals 2+ HPF (None Seen); Clarity Clear (Clear); Glucose, Urine (Dipstick) Normal (Negative); Ketone, Urine 10 mg/dL (Negative); Leukocyte Negative Leu/uL (Negative); Mucous/LPF 1+ LPF (<2+); Nitrite Negative (Negative); Protein, Urine (Dipstick) 200 mg/dL (Neg-Trace); RBC/HPF 0-3 HPF (0-3); Specific Gravity, Urine 1.032 (1.002-1.036); Squamous Epithelial 0-3 HPF (0-3); WBC/HPF 0-3 HPF (0-3)
--- NOTE | 2020-06-18 13:55 | CT ---
CT CERVICAL SPINE WITHOUT CONTRAST: Date: 06/18/2020 INDICATION: Found down, unconscious. Right side weakness. FINDINGS: There are degenerative changes in the cervical spine. Degenerative disc changes are most prominent at C5-6 and C6-7. Vertebral bodies maintain height and alignment. No evidence of cervical spine fractur e. Spondylosis impinges into the spinal canal at C5-6 and C6-7. Foraminal stenosis bilaterally at C5- 6. IMPRESSION: Degenerative changes of the cervical spine. No evidence of cervical spine fracture. POS: [facility]
[2020-06-18 13:56] LABS: Amphetamine Not Detected (NotDetected); Barbiturates Screen Not Detected (NotDetected); Benzodiazepine Screen Not Detected (NotDetected); Cocaine Metabolite Screen Not Detected (NotDetected); Medtox Control Line Valid? VALID (VALID); Medtox Reader # READER 4; Methadone Not Detected (NotDetected); Methamphetamine Not Detected (NotDetected); Opiate Screen Not Detected (NotDetected); Oxycodone Screen Not Detected (NotDetected); Phencyclidine (PCP) Not Detected (NotDetected); THC/Cannabinoid Screen Detected (NotDetected); Tricyclic Screen Not Detected (NotDetected)
[2020-06-18 13:57] LABS: CKMB 11.6 ng/mL (0-6.6)
--- NOTE | 2020-06-18 14:04 | MRI ---
Exam: Brain MRI with and without contrast HISTORY: Altered mental status. Right-sided weakness. Patient was found on the floor, possibly there for 2 to 3 days. COMPARISON: None FINDINGS: Gradient echo sequence: No hemorrhage Calvarium: Appropriate T1 marrow signal intensity Midline brain parenchyma: Unremarkable Cerebrum:There are T2 and FLAIR white matter hyperintensities involving the left frontal cortex, left temporal cortex, left occipital cortex and left parietal cortex. Additional T2 and FLAIR hyperintensities are noted in the left lentiform nucleus, left caudate nucleus. There is associated r estricted diffusion. Mild sulcal effacement is identified. Additional areas of T2 and FLAIR hyperintensity with loss of volume are noted in the medial left and right occipital lobe. Ventricles: No evidence of hydrocephalus. Sinuses and mastoid air cells: Mild mucosal thickening of the paranasal sinuses. Adequate mastoid air cell aeration. Diffusion: Central arterial flow is maintained. Absent restricted diffusion. Postcontrast images:Postcontrast images are limited due to motion degradation. Mild enhancement invol ving the left lentiform nucleus and left caudate nucleus. IMPRESSION: Left MCA distribution infarct. Given subtle enhancement involving the left deep martinez matter structure s, component of the infarct may be subacute.
[2020-06-18] MEDS ORDERED: cefTRIAXone\\ROCEPHIN 2 GM VIAL ONE (14:09)
[2020-06-18] MEDS ORDERED: Erythromycin Base 0.5% Oint 1 GM TUBE ONE (14:09)
[2020-06-18] MEDS ORDERED: Aspirin 300 MG Suppository ONE (14:09)
[2020-06-18] MEDS ORDERED: Acetaminophen 325 MG TAB PO PRN (14:33)
[2020-06-18] MEDS ORDERED: Ondansetron PF 4 MG/2 ML Vial IVP PRN (14:33)
[2020-06-18] MEDS ORDERED: Ondansetron ODT 4 MG TAB PO PRN (14:33)
[2020-06-18] MEDS ORDERED: Acetaminophen 650 MG Suppository PR PRN (14:33)
[2020-06-18 15:14] LABS: CK (CPK) 508 U/L (29-168); Magnesium 1.9 mg/dL (1.6-2.6); Phosphorus 4.3 mg/dL (2.3-4.7)
--- NOTE | 2020-06-18 15:32 | CON ---
DATE OF CONSULTATION: HISTORY OF PRESENT ILLNESS: Ms. Jauregui is a 55-year-old woman, who was reportedly found down earlier today. The story that is related to me via the nursing staff and EMS at bedside. 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 Boss called today for welfare check and upon arrival, found the patient down at her home covered in her own feces and minimally responsive. She was then transported via EMS to [facility] in [place], where CT scan performed reveals subtle hyperdensity measuring roughly 1.5 cm to the left internal capsule with surrounding slight hypodensity. This was initially read as hemorrhage represents subacute to chronic resolving hemorrhagic products, so I have worried that this could represent something more neoplastic process. History is unobtainable at this time other than knowing that she had history of aortic aneurysmal repair at [facility] in November or December of this year. It does not appear that she is on any blood thinning medications that we can discern. PHYSICAL EXAMINATION: On my examination, the patient is mostly listless in and out of consciousness in the bed, protecting her own airway. Systolic pressures in the 100s to one teens. Pupils are equal, round, and reactive to light. Scleral injection to the right. Eyes, Extraocular movements do appear to be intact, but she is not following specific commands for gaze direction forming. Speech, mostly nonexistent. She will make attempts at speech from [id number] when I ask her questions. This is mostly just garbled noise and very limited. She does briskly follow commands in the left upper and left lower extremities. She is able to wiggle her toes and foot on the right, but cannot lift her leg off the bed. She has minimal movement in the right upper extremity. ASSESSMENT AND PLAN: Altered mental status, subacute to chronic hemorrhage versus neoplastic process. Given the appearance of her CT scan, Neurosurgery's recommendation would be MRI with and without contrast of the brain. This can happen either in the emergency department or upon the floor later today. We will need head of bed elevated at 30 degrees and q.1 hour neuro checks. At the time being, systolic pressures need to remain below 160. I do not foresee any imminent surgical intervention for this process, but this may change pending results of MRI when this comes back, we will check in later upon completion. Job ID: [id number]
[2020-06-18 15:45] LABS: SARS-CoV-2 NAA Rapid Test Not Detected (NotDetected)
[2020-06-18] MEDS: Lactated Ringer's 1,000 ML IV SCH ×3 (16:26→23:48)
[2020-06-18 17:19] LABS: Lactic Acid 1.6 mmol/L (0.5-2.2)
[2020-06-18 17:37] LABS: Troponin I 0.044 ng/mL (< 0.028)
[2020-06-18 18:58] LABS: Free T4 (Free Thyroxine) 0.95 ng/dL (0.70-1.48)
[2020-06-18 20:40] VITALS: BMI 37.8
[2020-06-18 20:51] LABS: Troponin I 0.053 ng/mL (< 0.028)
[2020-06-19] MEDS: Lactated Ringer's 1,000 ML IV SCH ×4 (05:03→16:38)
[2020-06-19 05:24] LABS: #Eosinphils 0.2 thou/uL (0.0-0.7); #Lymphocytes 1.5 thou/uL (1.20-3.40); #Monocytes 1.4 thou/uL (0.11-0.59); #Neutrophils 8.9 thou/uL (1.40-6.50); %Basophils 0.2 % (0.0-1.0); %Eosinophils 1.6 % (0.0-10.0); %Lymphocytes 12.3 % (21.0-51.0); %Monocytes 11.4 % (0.0-10.0); %Neutrophils 74.5 % (42.0-75.0); Hemoglobin 17.3 g/dL (12.0-16.0); Mean Corpuscular HGB CONC 29.2 g/dL (32.0-36.0); Mean Corpuscular Hemoglobin 27.8 pg (27.0-31.0); Mean Corpuscular Volume 95.2 fL (78.0-98.0); Mean Platelet Volume 9.8 fL (7.4-10.4); Platelet Count 163 thou/uL (130-400); RBC Distribution Width 17.4 % (11.5-14.5); Red Blood Cell (RBC) Count 6.24 mill/uL (4.20-5.40)
[2020-06-19 05:39] LABS: Anion Gap 15 mmol/L (10-20); BUN (Urea Nitrogen) 16 mg/dL (9.8-20.1); Calc. Creatinine Clearance 180 mL/min (70-130); Calcium 8.8 mg/dL (7.8-10.44); Carbon Dioxide 28 mmol/L (22-29); Cardiac Risk 3.4 (Less than 4.5); Chloride 103 mmol/L (98-107); Cholesterol 140 mg/dl (< 200 Desired); Glucose 79 mg/dL (70-105); HDL Cholesterol 41 mg/dL (>60 Neg Risk); LDL Cholesterol, Calculated 76 mg/dL; Potassium 4.4 mmol/L (3.5-5.1); Sodium 142 mmol/L (136-145); Triglycerides 117 mg/dL (Less than 150)
--- NOTE | 2020-06-19 07:05 | PDOC.FM ---
- Subjective Subjective: Patient lying comfortably in bed, wearing CPAP. Opens eyes to voice and follows commands. Nursing reports NIH of 19 and no problems overnight. Patient did well on CPAP and seems comfortable. Nursing plans to call nephew whose number is in chart this AM to get more information and history. - Objective Vital Signs & Weight: Vital Signs (12 hours) Temp Pulse Resp BP Pulse Ox 06/19/20 05:17 98.5 F 82 18 99/75 96 06/19/20 02:44 82 20 96 06/19/20 00:55 17 95 06/18/20 23:52 84 22 H 91/57 L 96 06/18/20 21:00 97.7 F 94 18 92/60 94 L Weight Weight 106.367 kg Result Diagrams: 06/19/20 04:58 06/19/20 04:58 Phys Exam - Physical Examination Constitutional: NAD HEENT: moist MMs Neck: no JVD Respiratory: no wheezing, clear to auscultation bilateral Cardiovascular: RRR, no significant murmur Gastrointestinal: soft, no distention Musculoskeletal: no edema, pulses present right sided hemiparesis - unchanged from yesterday Skin: no rash Dx/Plan - Plan Plan: 55 yo F with a history of COPD and thoracic aortic aneurysm s/p TAVR in 2018 pre senting for L MCA infarct L MCA ischemic infarct - Patient was found down at home and presented with expressive aphasia and R sided hemiparesis. Last seen by coworkers on Jun 13. - CT brain: evidence of L MCA infarct, 1.2 cm left external capsular parenchymal hematoma - MRI brain: subacute L MCA infarct distribution - q4h neuro checks - most recent NIH 19 - [place] aspirin 300mg, statin when tolerating PO - lipids, Mg, Phos wnl - TSH slightly low, but T3 and T4 normal - elevated CK, LR 200mL/hr - ECHO pending - Neurosurgery consulted in ED - Stroke team, neurology consult - PT, OT, speech consult NSTEMI type II - likely related to hypovalemia - trop 0.05, 0.04, 0.05 - EKG: sinus rhythm - trend trops - LR 200mL/hr Medical Decision Maker - Patient is currently unable to communicate needs due to deficits from stroke - Spoke with patient's but unsure if she has medical decision making capacity - Ethics consult placed COPD - Per partner, patient uses inhalers at home Hx thoracic aortic aneurysm s/p TAVR 2018 - Rep[place] [address] Dooley - unaware if patient has had any subsequent follow-up HTN - Will restart home medications when tolerating PO HFpEF - repeat ECHO pending for stroke workup DVT: SCDs Code: FULL PCP: Swetha Dispo: Admit to stroke. eLOS >48 hours pending stroke workup and evaluation. Addendum - Attending - Attending Attestation Date/Time: 06/19/20 [id number] I personally evaluated the patient and discussed the management with the team. I agree with the History, Examination, Assessment and Plan documented above with any addition or exceptions noted below. Await neuro recs. I am unsure if AA could cause symptoms with documented stability s/p intervention with no evidence of rupture at this point.
[2020-06-19] MEDS: Aspirin 300 MG Suppository PR SCH (08:47)
--- NOTE | 2020-06-19 17:37 | CON ---
NEUROLOGY CONSULTATION DATE OF CONSULTATION: 06/19/2020 REASON FOR CONSULTATION: Altered mental status, status post fall. HISTORY OF PRESENT ILLNESS: Ms. Jauregui is a 55-year-old female with history significant for hypertension, hyperlipidemia, COPD, and history of thoracic aortic aneurysm, presented to the emergency room due to dysarthria and aphasia. The patient did not show up for work, and a co-worker performed a wellness check and found her down at her home, lying in feces and she was unable to ambulate, so the co-worker called the EMS. The patient was last seen normal by coworkers on Thursday, June 13. The patient does not have history of prior CVA, and her main issue is COPD, for which she uses inhaler daily. She does have history of abdominal aortic aneurysm, status post surgery. In the emergency room, head CT was done, which showed left MCA infarction, and there is a concern about parenchymal hematoma. MRI of the brain was done, which showed a subacute left MCA stroke. Neurology was consulted for further recommendation. REVIEW OF SYSTEMS: Unobtainable due to the patient's aphasia. PAST MEDICAL HISTORY: COPD, hypertension. PAST SURGICAL HISTORY: Thoracic aortic aneurysm, status post TAVR in 2018, toe amputation greater than 20 years ago. FAMILY HISTORY: No significant family history. SOCIAL HISTORY: Daily smoker. REVIEW OF SYSTEMS: Unobtainable due to expressive aphasia. Allergies/Adverse Reactions Allergies Allergy/AdvReac Type Severity Reaction Status Date / Time lisinopril Allergy Verified 12/24/17 03:30 - Home Medications Medication Instructions Recorded Confirmed Type Atorvastatin Calcium [Lipitor] 40 mg PO DAILY 12/20/17 12/20/17 History Carvedilol 25 mg PO BID 12/20/17 12/20/17 History Furosemide 80 mg PO DAILY 12/20/17 12/20/17 History Ipratropium/Albuterol Sulfate 3 ml NEB QID PRN 12/20/17 12/20/17 History [DuoNeb] Losartan Potassium [Cozaar] 100 mg PO DAILY 12/20/17 12/20/17 History Ventolin HFA Inhaler 2 puff INH Q6HR PRN 12/20/17 12/20/17 History Amlodipine [Norvasc] 5 mg PO DAILY #30 tab 12/28/17 Rx BuPROPion XL [Wellbutrin XL] 150 mg PO BID #60 tab 12/28/17 Rx Budesonide-Formoterol [Symbicort 1 puff INH BID #1 aer 12/28/17 Rx 160-4.5] Tiotropium [place] [Spiriva 2 inh IH DAILY #1 inhaler 12/28/17 Rx Respimat] predniSONE 20 mg PO QAM-WM #3 tab 12/28/17 Rx Vital Signs & Weight: Vital Signs (12 hours) Temp Pulse Resp BP Pulse Ox 06/19/20 05:17 98.5 F 82 18 99/75 96 06/19/20 02:44 82 20 96 06/19/20 00:55 17 95 06/18/20 23:52 84 22 H 91/57 L 96 06/18/20 21:00 97.7 F 94 18 92/60 94 L Weight Weight 106.367 kg PHYSICAL EXAMINATION: -Constitutional: awake, alert, HEENT: normocephalic and atraumatic, PERRLA, EOMI, no scleral icterus, grossly normal hearing Neck: no JVD Heart: RRR, pulses present, no edema Lungs: CTAB, no respiratory distress Abdomen: soft, no masses/distention Neurological : Mental status, the patient is alert, awake, but does not follow commands. She does have expressive aphasia. Cranial nerves 2 through 12 intact except 7, right facial droop. Motor; muscle tone and bulk are normal. Right hemiparesis. Sensory, decreased sensation in the right upper and lower extremities. Cerebellar, unable to perform on the right secondary to weakness. Gait deferred due to the patient's safety reason. DATA REVIEWED: I reviewed the labs, which were significant for hemoglobin of 19.6, hematocrit of 65.2. MRI of the brain showed left subacute infarct. WBC 11.7 thou/uL (4.8-10.8) H 06/18/20 12:49 Hgb 19.6 g/dL (12.0-16.0) H 06/18/20 12:49 Hct 65.2 % (36.0-47.0) H* 06/18/20 12:49 MCV 93.3 fL (78.0-98.0) 06/18/20 12:49 Plt Count 152 thou/uL (130-400) 06/18/20 12:49 Neutrophils % 76.8 % (42.0-75.0) H 06/18/20 12:49 Sodium 142 mmol/L (136-145) 06/18/20 12:49 Potassium 4.2 mmol/L (3.5-5.1) 06/18/20 12:49 Chloride 98 mmol/L (98-107) 06/18/20 12:49 Carbon Dioxide 31 mmol/L (22-29) H 06/18/20 12:49 BUN 16 mg/dL (9.8-20.1) 06/18/20 12:49 Creatinine 0.64 mg/dL (0.6-1.1) 06/18/20 12:49 Glucose 92 mg/dL (70-105) 06/18/20 12:49 Lactic Acid 2.1 mmol/L (0.5-2.2) 06/18/20 12:49 Calcium 9.8 mg/dL (7.8-10.44) 06/18/20 12:49 Total Bilirubin 1.2 mg/dL (0.2-1.2) 06/18/20 12:49 AST 46 U/L (5-34) H 06/18/20 12:49 ALT 23 U/L (8-55) 06/18/20 12:49 Alkaline Phosphatase 79 U/L (40-110) 06/18/20 12:49 Serum Total Protein 6.6 g/dL (6.0-8.3) 06/18/20 12:49 Albumin 3.6 g/dL (3.5-5.0) 06/18/20 12:49 - EKG Interpretation EKG: sinus rhythm - Radiology Interpretation Chest x-ray Status: report reviewed by me (no acute process) CT scan - head Status: report reviewed by me (suspicious for L MCA Infarct, 1.2 cm left external capsular parenchymal hematoma) MRI - head Status: report reviewed by me (L MCA distribution infarct) Other Status: report reviewed by me (CT cervical spine: degenerative changes, no acute process) ASSESSMENT AND PLAN: Ms. Mally Jauregui is a 55-year-old female, who presented with expressive aphasia and right-sided hemiparesis. She was last seen normal by the coworkers on June 13. MRI of the brain reviewed, which showed left MCA infarct and 1.2 cm left external capsular infarct. Permissive control of blood pressure for 24 hours. Neuro check every 4 hours . Rectal aspirin until cleared by Speech. Consider starting high-intensity statin when the patient is able to take p.o. intake. 2D echo completed with normal left ventricular ejection fraction with no thrombus or PFO. Check fasting lipid panel, TSH, and hemoglobin A1c. Strict control of blood glucose. Continue home medications. PT/OT/speech. Telemetry to rule out arrhythmias. Continue medical management per primary team. EEG to rule out underlying cortical irritability because of large vessel stroke. DVT prophylaxis. GI prophylaxis. We will continue to follow. Thank you for the consult. Job ID: [id number] [email or web address]
--- NOTE | 2020-06-19 17:42 | PDOC.BPN ---
- Brief Progress Note Received page from RN for soft BPs. Patient has no new symptoms, and actually appears better today than she has been previously. On exam, appears mildly hypervolemic. Trace edema b/l, no sacral edema, mild bibasilar crackles. Otherwise, pt appears very stable. Trend of BPs has been on the low side since admission. We will continue to monitor closely.
--- NOTE | 2020-06-19 19:18 | PDOC.EEG ---
Neurology EEG Report - Report Report: This EEG was performed using 24 channel [employer] video digital EEG machine with 24 disc electrodes. This was an extended 2-hours 20 minutes of inpatient video EEG recording. Digital analysis of the EEG was done for Osmar and seizure detection which revealed no abnormalities Background: The posterior background rhythm is not observed. Hyperventilation: Not performed. Photic stimulation. Bioccipital symmetric response seen with photic stimulation. EEG diagnosis: Generalized irregular theta activity seen during the recording. Nonsustained posterior background rhythm. Clinical interpretation: This EEG is consistent with moderate generalized nonspecific cerebral dysfunct ion.
[2020-06-19] MEDS ORDERED: FLU VACC QS2020-21(6MOS UP)/PF 60 MCG/0.5 ML SYRINGE IM ONE (21:00)
[2020-06-20] MEDS: Lactated Ringer's 1,000 ML IV SCH ×3 (01:35→12:00)
[2020-06-20 05:33] LABS: Hemoglobin A1c 5.9 % (4.0-6.0)
--- NOTE | 2020-06-20 06:23 | PDOC.FM ---
- Subjective Subjective: Ms. Jauregui is much more awake today and is able to form some words like saying "alright" when asked how she is feeling. She is able to follow instructions. - Objective Vital Signs & Weight: Vital Signs (12 hours) Temp Pulse Resp BP Pulse Ox 06/20/20 04:00 98.0 F 69 14 105/72 97 06/20/20 00:00 98.2 F 73 18 90/57 L 98 06/19/20 20:00 98.3 F 84 20 86/56 L 95 Weight Admit Weight 106.367 kg Weight 106.367 kg I&O: 06/18/20 06/19/20 06/20/20 06:59 06:59 06:59 Intake Total 1127 Output Total 450 Balance 677 Result Diagrams: 06/20/20 06:33 06/20/20 06:33 EKG Reviewed by me: Yes (tele: 13 beats of PAT, 5 beats of Vtach twice) Radiology Reviewed by me: Yes (ECHO: EF 60-65%, diastolic dysfunction) Phys Exam - Physical Examination Constitutional: NAD HEENT: moist MMs, sclera anicteric Neck: full ROM bibasilar crackles Cardiovascular: RRR, no significant murmur Gastrointestinal: soft Musculoskeletal: no edema, pulses present swollen RUE right hemiparesis, expressive aphasia present but improved Psychiatric: normal affect Skin: no rash Dx/Plan - Plan Plan: 55 yo F with a history of COPD and thoracic aortic aneurysm s/p TAVR in 2018 presenting for L MCA infarct L MCA ischemic infarct - Patient was found down at home and presented with expressive aphasia and R sided hemiparesis. Last seen by coworkers on Jun 13. - CT brain: evidence of L MCA infarct, 1.2 cm left external capsular parenchymal hematoma - MRI brain: subacute L MCA infarct distribution - q4h neuro checks, [place] aspirin 300mg, statin when tolerating PO - lipids, Mg, Phos wnl. TSH slightly low, but T3 and T4 normal. elevated CK on admission - ECHO EF 60-65%, diastolic dysfunction - Neurosurgery consulted in ED - Stroke team - PT, OT - Speech: NPO, allow ice chips to practice. Will reevaluate daily - Neurology consult (Lucrecia) - Will place CM consult to evaluate for rehab placement post discharge HFpEF - repeat ECHO showed EF of 60-65% with evidence of diastolic dysfunction - Bibasilar crackles on exam today. Suspect patient may be fluid overloaded. - CXR, discontinue fluids Swollen Right UE - Venous doppler NSTEMI type II - likely related to hypovalemia - trop 0.05, 0.04, 0.05 - EKG: sinus rhythm - trend trops Medical Decision Maker - Patient is currently unable to communicate needs due to deficits from stroke - Spoke with patient's but unsure if she has medical decision making capacity. Will try again to call patient's nephew today to get more information. - Ethics consult placed COPD - Per partner, patient uses inhalers at home Hx thoracic aortic aneurysm s/p TAVR 2018 - [place] [address] Dooley - unaware if patient has had any subsequent follow-up HTN - Will restart home medications when tolerating PO DVT: SCDs Code: FULL Diet: NPO w/ ice chips PCP: Swetha Dispo: Evaluate for fluid overload and ATN today. Will place CM consult to evaluate for rehab placement. Encouraged patient to continue working with PT and OT. Will try again today to call patient's nephew and try to find out best medical decision maker. Addendum - Attending - Attending Attestation Date/Time: 06/20/20 1445 I personally evaluated the patient and discussed the management with Dr. Krishna. I agree with the History, Examination, Assessment and Plan documented above with any addition or exceptions noted below. Patient with RUE edema - doppler Scant bibasilar crackles - CXR, hold fluids Dark, decreased UOP - send UA, CK is improving BP's monitor
[2020-06-20 06:57] LABS: #Basophils 0.1 thou/uL (0.0-0.2); #Eosinphils 0.3 thou/uL (0.0-0.7); #Lymphocytes 1.2 thou/uL (1.20-3.40); #Monocytes 1.1 thou/uL (0.11-0.59); #Neutrophils 6.3 thou/uL (1.40-6.50); %Basophils 0.8 % (0.0-1.0); %Eosinophils 2.9 % (0.0-10.0); %Lymphocytes 13.3 % (21.0-51.0); %Monocytes 12.5 % (0.0-10.0); %Neutrophils 70.5 % (42.0-75.0)
[2020-06-20 06:58] LABS: Hemoglobin 17.2 g/dL (12.0-16.0); Mean Corpuscular HGB CONC 29.5 g/dL (32.0-36.0); Mean Corpuscular Hemoglobin 27.9 pg (27.0-31.0); Mean Corpuscular Volume 94.5 fL (78.0-98.0); Mean Platelet Volume 9.9 fL (7.4-10.4); Platelet Count 155 thou/uL (130-400); RBC Distribution Width 17.5 % (11.5-14.5); Red Blood Cell (RBC) Count 6.18 mill/uL (4.20-5.40); White Blood Cell (WBC) Count 8.9 thou/uL (4.8-10.8)
[2020-06-20 07:10] LABS: Anion Gap 15 mmol/L (10-20); BUN (Urea Nitrogen) 16 mg/dL (9.8-20.1); Calc. Creatinine Clearance 171 mL/min (70-130); Calcium 8.8 mg/dL (7.8-10.44); Carbon Dioxide 30 mmol/L (22-29); Chloride 102 mmol/L (98-107); Glucose 79 mg/dL (70-105); Potassium 4.3 mmol/L (3.5-5.1); Sodium 143 mmol/L (136-145)
[2020-06-20 08:24] LABS: MDiff Complete? YES; Platelet Morphology Comment Appears Adequate; Polychromasia SLIGHT = 2-3 cells (100X) (0-2/hpf)
--- NOTE | 2020-06-20 09:06 | RAD ---
Chest AP view INDICATION: History of fluid overload COMPARISON: June 18, 2020 FINDINGS: Lungs: Low lung volumes with worsening airspace disease of the right lower lobe. Cardiac silhouette: There is cardiomegaly that is stable and is slightly accentuated due to the low lung volumes appear Pulmonary vasculature: Normal Pleural spaces: No pleural effusion or pneumothorax is demonstrated. Upper abdomen: No abnormality seen. Osseous structures: No acute osseous abnormality. Additional findings: Endograft stent involving the aortic arch and descending thoracic aorta appears similar when accounting positioning. IMPRESSION: Low lung volumes with new airspace disease of the right lower lobe which may reflect subsegmental vol ume loss. Component pneumonia cannot be entirely excluded. Repeat 2 view of the chest may be helpful with improved inspiration. Stable moderate cardiomegaly.
[2020-06-20] MEDS: Aspirin 300 MG Suppository PR SCH (09:16)
[2020-06-20 09:33] LABS: Bilirubin Moderate (Negative); Blood, Urine Large (Negative); Glucose, Urine (Dipstick) Negative (Negative); Ketone, Urine 40 mg/dL (Negative); Leukocyte Trace (Negative); Nitrite Negative (Negative); Protein, Urine (Dipstick) 100 mg/dL (Neg-Trace); Urobilinogen > or = 8.0 mg/dL (Less than 2)
[2020-06-20 09:34] LABS: Clarity Extra Turbid (Clear)
[2020-06-20 09:35] LABS: Specific Gravity, Urine 1.028 (1.002-1.036)
[2020-06-20 09:37] LABS: Urine Culture Reflex No No
[2020-06-20 09:49] LABS: RBC/HPF Greater than 50 HPF (0-3); Squamous Epithelial 0-3 HPF (0-3)
[2020-06-20 09:50] LABS: Bacteria/HPF Rare-Few HPF (None Seen); Triple Phosphate Crystal Rare HPF (None Seen)
--- NOTE | 2020-06-20 13:29 | PDOC.NEUPN ---
- Subjective Encounter Date: 06/20/20 Subjective: Patient continues to have aphasia and dysphagia associated with right he miplegia. - Objective Vital Signs & Weight: Vital Signs (12 hours) Temp Pulse Resp BP Pulse Ox 06/20/20 11:57 98.4 F 72 18 98/67 95 06/20/20 07:53 98 F 80 18 100/70 92 L 06/20/20 04:00 98.0 F 69 14 105/72 97 Weight Admit Weight 234 lb 8 oz Weight 234 lb 8 oz I&O: 06/19/20 06/20/20 06/21/20 06:59 06:59 06:59 Intake Total 1127 Output Total 450 Balance 677 Result Diagrams: 06/20/20 06:33 06/20/20 06:33 Additional Labs: Accuchecks 06/20/20 10:47 POC Glucose 122 H Radiology Reviewed by me: Yes EKG Reviewed by me: Yes ROS - Review of Systems ROS unobtainable: due to mental status (Aphasia) - Medication Medications: Active Medications Generic Name Dose Route Start Last Admin Trade Name Rosa PRN Reason Stop Dose Admin Aspirin 300 mg 06/19/20 09:00 06/20/20 09:16 Aspirin 300 Mg Suppository NC 300 mg DAILY DEMETRI Administration Lactated Ringer's 1,000 mls @ 75 mls/hr 06/20/20 11:00 06/20/20 12:00 Lactated Ringer's IV 1,000 mls .[id number] DEMETRI Administration - Exam General Appearance: awake alert Eye: PERRL ENT: normocephalic atraumatic Neck: supple Respiratory: CTAB Cardiovascular: RRR Gastrointestinal: soft Extremities: no cyanosis Skin: normal turgor Neurological: facial droop, hemiplegia, speech deficit Neurological - other findings: Right-sided focal deficits Musculoskeletal: normal tone, no muscle wasting PSYCH: normal affect, normal behavior (Aphasic) Results - Labs Result Diagrams: 06/20/20 06:33 06/20/20 06:33 Lab results: WBC 8.9 thou/uL (4.8-10.8) 06/20/20 06:33 Hgb 17.2 g/dL (12.0-16.0) H 06/20/20 06:33 Hct 58.4 % (36.0-47.0) H 06/20/20 06:33 MCV 94.5 fL (78.0-98.0) 06/20/20 06:33 Plt Count 155 thou/uL (130-400) 06/20/20 06:33 Neutrophils % 70.5 % (42.0-75.0) 06/20/20 06:33 Sodium 143 mmol/L (136-145) 06/20/20 06:33 Potassium 4.3 mmol/L (3.5-5.1) 06/20/20 06:33 Chloride 102 mmol/L (98-107) 06/20/20 06:33 Carbon Dioxide 30 mmol/L (22-29) H 06/20/20 06:33 BUN 16 mg/dL (9.8-20.1) 06/20/20 06:33 Creatinine 0.61 mg/dL (0.6-1.1) 06/20/20 06:33 Glucose 79 mg/dL (70-105) 06/20/20 06:33 Lactic Acid 1.6 mmol/L (0.5-2.2) 06/18/20 16:41 Calcium 8.8 mg/dL (7.8-10.44) 06/20/20 06:33 Total Bilirubin 1.2 mg/dL (0.2-1.2) 06/18/20 12:49 AST 46 U/L (5-34) H 06/18/20 12:49 ALT 23 U/L (8-55) 06/18/20 12:49 Alkaline Phosphatase 79 U/L (40-110) 06/18/20 12:49 Creatine Kinase 242 U/L (29-168) H 06/20/20 06:33 CK-MB (CK-2) 11.6 ng/mL (0-6.6) H* 06/18/20 12:49 Troponin I 0.053 ng/mL (< 0.028) H 06/18/20 20:21 Serum Total Protein 6.6 g/dL (6.0-8.3) 06/18/20 12:49 Albumin 3.6 g/dL (3.5-5.0) 06/18/20 12:49 Urine Ketones 40 mg/dL (Negative) A 06/20/20 09:04 Urine Blood Large (Negative) A 06/20/20 09:04 Urine Nitrite Negative (Negative) 06/20/20 09:04 Ur Leukocyte Esterase Trace (Negative) H 06/20/20 09:04 Urine RBC Greater than 50 HPF (0-3) A 06/20/20 09:04 Urine WBC 7-10 HPF (0-3) A 06/20/20 09:04 Ur Squamous Epith Cells 0-3 HPF (0-3) 06/20/20 09:04 Urine Bacteria Rare-Few HPF (None Seen) 06/20/20 09:04 PN A/P (1) Acute CVA (cerebrovascular accident) due to Hgb-S disease Code(s): I63.9 - CEREBRAL INFARCTION, UNSPECIFIED; D57.1 - SICKLE-CELL DISEASE WITHOUT CRISIS Status: Acute (2) COPD (chronic obstructive pulmonary disease) Status: Acute (3) HTN (hypertension) Code(s): I10 - ESSENTIAL (PRIMARY) HYPERTENSION Status: Acute (4) Heart failure with preserved ejection fraction Code(s): I50.30 - UNSPECIFIED DIASTOLIC (CONGESTIVE) HEART FAILURE Status: Acute (5) Hyperlipidemia Code(s): E78.5 - HYPERLIPIDEMIA, UNSPECIFIED Status: Acute (6) Thoracic aortic aneurysm Code(s): I71.2 - THORACIC AORTIC ANEURYSM, WITHOUT RUPTURE Status: Acute - Plan 55-year-old female with medical history significant for COPD and thoracic aortic aneurysm s/p TAVR in 2018 presented with expressive aphasia and right-sided hemiparesis. MRI of the brain reviewed which was consistent with subacute infarction in the left middle cerebral artery distribution. EEG reviewed which was negative for seizure activity. 2D echo showed left ventricle ejection fraction 60 to 65%. Evidence of diastolic dysfunction. No thrombus or PFO. Carotid Dopplers to rule out hemodynamically significant stenosis are pending Telemetry to rule out arrhythmias. Patient has significant dysphagia n.p.o. till cleared by speech. PT/OT. Continue aspirin per rectal 300 mg till cleared by speech Start high intensity statin and patient is able to tolerate oral intake. Strict control of blood pressure and blood glucose. Continue medical management per primary team. DVT prophylaxis. GI prophylaxis Case management on board regarding discharge planning. Plan discussed in detail with the nursing staff.
--- NOTE | 2020-06-20 13:32 | PDOC.EEG ---
Neurology EEG Report - Report Report: This EEG was performed using 24 channel [employer] video digital EEG machine with 24 disc electrodes. This was an extended 2-hours 6 minutes of inpatient video EEG recording. Digital analysis of the EEG was done for Osmar and seizure detection which revealed no abnormalities Background: The posterior background rhythm is 6-7 Hz. Minimal reactivity seen with eye opening and closure. Hyperventilation: Not performed. Photic stimulation. Bioccipital symmetric response not seen with photic stimulation. EEG diagnosis: Intermittent irregular theta activity seen during the recording Nonsustained slow posterior background rhythm. Clinical interpretation: This EEG is consistent with moderate generalized nonspecific cerebral dysfunction.
--- NOTE | 2020-06-20 15:40 | RAD ---
Modified barium swallow: 06/20/2020 HISTORY: Dysphagia following cerebral infarction, feeding difficulty FINDINGS: A modified barium swallow was performed in conjunction with a member division of speech pat hology. The patient is imaged in the lateral projection swallowing various consistencies of barium. There is penetration and aspiration with thin liquids. Definite penetration noted with nectar thick l iquids with possible aspiration. Premature spill into the vallecula noted with all consistencies. Please see speech pathologist report for full detail and feeding recommendations. IMPRESSION: Penetration and aspiration as detailed above.
--- NOTE | 2020-06-20 16:49 | ULT ---
EXAM: Right upper extremity venous Doppler HISTORY: Right arm edema diffusely. FINDINGS: Grayscale, color-flow, Doppler evaluation, spectral analysis of the right upper extremity venous stru ctures is performed with 2-D imaging. Normal flow is seen in the right subclavian vein. Normal luminal compressibility and flow is seen in the visualized right internal jugular, axillary, brachial , ulnar, and radial veins. There is normal luminal compressibility and flow also seen within the right upper extremity cephalic and basilic veins. Incidental note is made of a small joint effusion involving the right glenohumeral joint. Mild subcut aneous edema is seen. IMPRESSION: 1. No evidence of a deep vein thrombosis in the visualized deep venous structures right upper extremi ty. 2. Mild subcutaneous edema. 3. Incidental note is made of a small joint effusion involving the right glenohumeral joint.
[2020-06-21] MEDS: Lactated Ringer's 1,000 ML IV SCH ×2 (02:38→15:43)
[2020-06-21 04:51] LABS: Anion Gap 15 mmol/L (10-20); BUN (Urea Nitrogen) 13 mg/dL (9.8-20.1); Calc. Creatinine Clearance 168 mL/min (70-130); Calcium 8.2 mg/dL (7.8-10.44); Carbon Dioxide 28 mmol/L (22-29); Chloride 104 mmol/L (98-107); Glucose 81 mg/dL (70-105); Potassium 4.7 mmol/L (3.5-5.1); Sodium 142 mmol/L (136-145)
[2020-06-21 05:26] LABS: #Basophils 0.1 thou/uL (0.0-0.2); #Eosinphils 0.3 thou/uL (0.0-0.7); #Lymphocytes 1.2 thou/uL (1.20-3.40); #Monocytes 1.1 thou/uL (0.11-0.59); #Neutrophils 6.7 thou/uL (1.40-6.50); %Basophils 0.7 % (0.0-1.0); %Eosinophils 3.4 % (0.0-10.0); %Monocytes 11.9 % (0.0-10.0); %Neutrophils 70.9 % (42.0-75.0); Hemoglobin 16.4 g/dL (12.0-16.0); Mean Corpuscular HGB CONC 29.3 g/dL (32.0-36.0); Mean Corpuscular Hemoglobin 27.5 pg (27.0-31.0); Mean Corpuscular Volume 93.8 fL (78.0-98.0); Mean Platelet Volume 10.6 fL (7.4-10.4); Platelet Count 154 thou/uL (130-400); Red Blood Cell (RBC) Count 5.98 mill/uL (4.20-5.40); White Blood Cell (WBC) Count 9.5 thou/uL (4.8-10.8)
--- NOTE | 2020-06-21 06:44 | PDOC.FM ---
- Subjective Subjective: Ms. Jauregui is doing well today. She was wearing her CPAP when I entered and removed it herself. She denies any pain. Nursing reports improved urine output and improved color. - Objective Vital Signs & Weight: Vital Signs (12 hours) Temp Pulse Resp BP Pulse Ox 06/21/20 04:00 97.7 F 67 18 126/96 H 100 06/21/20 00:00 98.1 F 69 20 117/83 97 06/20/20 22:42 76 25 H 96 06/20/20 20:49 97 06/20/20 20:00 98.2 F 73 20 118/71 97 Weight Admit Weight 106.367 kg Weight 106.367 kg I&O: 06/19/20 06/20/20 06/21/20 06:59 06:59 06:59 Intake Total 1127 1514 Output Total 450 925 Balance 677 589 Result Diagrams: 06/21/20 04:14 06/21/20 04:14 EKG Reviewed by me: Yes (tele: SR 60-80s, PACs) Radiology Reviewed by me: Yes Radiology: CXR: low lung volumes, cannot entirely exclude pneumonia RUE: mild subq edema, no DVT Phys Exam - Physical Examination Constitutional: NAD HEENT: sclera anicteric Neck: no nodes Respiratory: no wheezing, no rales, no rhonchi, clear to auscultation bilateral Cardiovascular: RRR, no significant murmur Gastrointestinal: soft, non-tender, no distention Musculoskeletal: pulses present swollen RUE right hemiparesis, expressive aphasia Psychiatric: normal affect Deviation from normal: cannot asses orientation Skin: no rash Dx/Plan - Plan Plan: 55 yo F with a history of COPD and thoracic aortic aneurysm s/p TAVR in 2018 presenting for L MCA infarct L MCA ischemic infarct - Patient was found down at home and presented with expressive aphasia and R sided hemiparesis. Last seen by coworkers on Jun 13. - CT brain: evidence of L MCA infarct, 1.2 cm left external capsular parenchymal hematoma - MRI brain: subacute L MCA infarct distribution - q4h neuro checks, [place] aspirin 300mg, statin when tolerating PO - lipids, Mg, Phos wnl. TSH slightly low, but T3 and T4 normal. CK improved with IVF. - ECHO EF 60-65%, diastolic dysfunction - Neurosurgery consulted in ED - Stroke team - PT, OT - Speech: ordered barium swallow, approved for thick nectars and puree - Neurology consult (Lucrecia) - Will place CM consult to evaluate for rehab placement post discharge - start statin and switch aspirin from NE to PO now that patient is no longer NPO HFpEF - repeat ECHO showed EF of 60-65% with evidence of diastolic dysfunction - CXR showed no evidence of fluid overload Swollen Right UE - Venous doppler negative for DVT, showed subq edema - Likely due to immobility - [employer] Medical Decision Maker - Contacted patient's nephew, Geoffrey Jauregui, who he states is all the family patient has left. - Palliative consult placed - likely Geoffrey will act as MPOA S/P right toe amputations - Wound care consult NSTEMI type II - likely related to hypovalemia - trop 0.05, 0.04, 0.05 - EKG: sinus rhythm COPD - Per partner, patient uses inhalers at home Hx thoracic aortic aneurysm s/p TAVR 2018 - [place] [address] Dooley - unaware if patient has had any subsequent follow-up HTN - Will restart home medications when tolerating PO DVT: SCDs Code: FULL Diet: thick nectar, puree PCP: Swetha Dispo: Continue to work with PT and OT. Discuss rehab placement with Case Management today. Addendum - Attending - Attending Attestation Date/Time: 06/21/20 [id number] I personally evaluated the patient and discussed the management with Dr. Krishna. I agree with the History, Examination, Assessment and Plan documented above with any addition or exceptions noted below. Doing much better this AM. No cp/sob. No f/c. Her RUE edema has resolved. Likely was extravasation. Negative doppler. Suggestive of this is her improved UOP and h/h after a new IV was place. Continue med mgmt otherwise.
[2020-06-21] MEDS: Aspirin 325 MG TAB PO SCH (10:12)
--- NOTE | 2020-06-21 12:03 | RAD ---
Exam:3 views right foot HISTORY: Wound. Status post right toe amputation. COMPARISON: None FINDINGS: Operative changes compatible with amputation of the fourth and fifth digit. There are small lucencies and ulcerations in the overlying soft tissues. Correlate for cellulitis. No radiographic evidence of osteomyelitis. Lisfranc alignment is maintained. No fracture. IMPRESSION: Postoperative changes and soft tissue inflammation/infection as described above.
--- NOTE | 2020-06-21 12:40 | PDOC.NEUPN ---
- Subjective Encounter Date: 06/21/20 Subjective: Patient is more alert today and was answering yes and no questions appropriately - Objective Vital Signs & Weight: Vital Signs (12 hours) Temp Pulse Pulse Pulse Resp BP BP 06/21/20 11:31 98.2 F 72 20 06/21/20 09:07 64 63 117/73 116/81 06/21/20 08:06 06/21/20 07:32 98.2 F 68 20 06/21/20 04:00 97.7 F 67 18 BP Pulse Ox Pulse Ox Pulse Ox 06/21/20 11:31 108/66 95 06/21/20 09:07 96 98 06/21/20 08:06 92 L 06/21/20 07:32 96/76 92 L 06/21/20 04:00 126/96 H 100 Weight Admit Weight 234 lb 8 oz Weight 234 lb 8 oz I&O: 06/20/20 06/21/20 06/22/20 06:59 06:59 06:59 Intake Total 1127 1514 Output Total 450 925 Balance 677 589 Result Diagrams: 06/21/20 04:14 06/21/20 04:14 Additional Labs: Accuchecks 06/20/20 06/20/20 21:17 16:33 POC Glucose 97 97 Radiology Reviewed by me: Yes EKG Reviewed by me: Yes ROS - Review of Systems ROS unobtainable: due to mental status (Aphasia) - Medication Medications: Active Medications Generic Name Dose Route Start Last Admin Trade Name Freq PRN Reason Stop Dose Admin Aspirin 325 mg 06/21/20 09:00 06/21/20 10:12 Aspirin 325 Mg Tab PO 325 mg DAILY DEMETRI Administration Lactated Ringer's 1,000 mls @ 75 mls/hr 06/20/20 11:00 06/21/20 02:38 Lactated Ringer's IV 1,000 mls .[id number] DEMETRI Administration - Exam General Appearance: awake alert Eye: PERRL ENT: normocephalic atraumatic Neck: supple Respiratory: CTAB Cardiovascular: RRR Gastrointestinal: soft Extremities: no cyanosis Skin: normal turgor Neurological: no new deficit, facial droop, hemiplegia, speech deficit Neurological - other findings: Left-sided deficits Musculoskeletal: no muscle wasting PSYCH: normal affect, normal behavior, not oriented (Aphasic) Results - Labs Result Diagrams: 06/21/20 04:14 06/21/20 04:14 Lab results: WBC 9.5 thou/uL (4.8-10.8) 06/21/20 04:14 Hgb 16.4 g/dL (12.0-16.0) H 06/21/20 04:14 Hct 56.1 % (36.0-47.0) H 06/21/20 04:14 MCV 93.8 fL (78.0-98.0) 06/21/20 04:14 Plt Count 154 thou/uL (130-400) 06/21/20 04:14 Neutrophils % 70.9 % (42.0-75.0) 06/21/20 04:14 Sodium 142 mmol/L (136-145) 06/21/20 04:14 Potassium 4.7 mmol/L (3.5-5.1) 06/21/20 04:14 Chloride 104 mmol/L (98-107) 06/21/20 04:14 Carbon Dioxide 28 mmol/L (22-29) 06/21/20 04:14 BUN 13 mg/dL (9.8-20.1) 06/21/20 04:14 Creatinine 0.62 mg/dL (0.6-1.1) 06/21/20 04:14 Glucose 81 mg/dL (70-105) 06/21/20 04:14 Lactic Acid 1.6 mmol/L (0.5-2.2) 06/18/20 16:41 Calcium 8.2 mg/dL (7.8-10.44) 06/21/20 04:14 Total Bilirubin 1.2 mg/dL (0.2-1.2) 06/18/20 12:49 AST 46 U/L (5-34) H 06/18/20 12:49 ALT 23 U/L (8-55) 06/18/20 12:49 Alkaline Phosphatase 79 U/L (40-110) 06/18/20 12:49 Creatine Kinase 242 U/L (29-168) H 06/20/20 06:33 CK-MB (CK-2) 11.6 ng/mL (0-6.6) H* 06/18/20 12:49 Troponin I 0.053 ng/mL (< 0.028) H 06/18/20 20:21 Serum Total Protein 6.6 g/dL (6.0-8.3) 06/18/20 12:49 Albumin 3.6 g/dL (3.5-5.0) 06/18/20 12:49 Urine Ketones 40 mg/dL (Negative) A 06/20/20 09:04 Urine Blood Large (Negative) A 06/20/20 09:04 Urine Nitrite Negative (Negative) 06/20/20 09:04 Ur Leukocyte Esterase Trace (Negative) H 06/20/20 09:04 Urine RBC Greater than 50 HPF (0-3) A 06/20/20 09:04 Urine WBC 7-10 HPF (0-3) A 06/20/20 09:04 Ur Squamous Epith Cells 0-3 HPF (0-3) 06/20/20 09:04 Urine Bacteria Rare-Few HPF (None Seen) 06/20/20 09:04 - Radiology Interpretation MRI - head Additional Comment: MRI of the brain reviewed and was consistent with acute infarction in the left middle cerebral artery distribution PN A/P (1) Acute CVA (cerebrovascular accident) due to Hgb-S disease Code(s): I63.9 - CEREBRAL INFARCTION, UNSPECIFIED; D57.1 - SICKLE-CELL DISEASE WITHOUT CRISIS Status: Acute (2) COPD (chronic obstructive pulmonary disease) Status: Acute (3) HTN (hypertension) Code(s): I10 - ESSENTIAL (PRIMARY) HYPERTENSION Status: Acute (4) Heart failure with preserved ejection fraction Code(s): I50.30 - UNSPECIFIED DIASTOLIC (CONGESTIVE) HEART FAILURE Status: Acute (5) Hyperlipidemia Code(s): E78.5 - HYPERLIPIDEMIA, UNSPECIFIED Status: Acute (6) Thoracic aortic aneurysm Code(s): I71.2 - THORACIC AORTIC ANEURYSM, WITHOUT RUPTURE Status: Acute - Plan Daily Plan: PT/OT, speech therapy, DVT proph w/SCDs 55-year-old female with medical history significant for COPD and thoracic aortic aneurysm s/p TAVR in 2018 presented with expressive aphasia and right- sided hemiparesis. Patient more alert today and was responding appropriately to yes and no questions Completed modified barium swallow yesterday and was approved for nectar and pured diet which she is tolerating well. MRI of the brain reviewed which was consistent with subacute infarction in the left middle cerebral artery distribution. EEG reviewed which was negative for seizure activity. 2D echo showed left ventricle ejection fraction 60 to 65%. Evidence of diastolic dysfunction. No thrombus or PFO. Carotid Dopplers to rule out hemodynamically significant stenosis are pending Continue telemetry to rule out arrhythmias. PT/OT. Continue aspirin per rectal 300 mg till cleared by speech Continue high intensity statin and patient is able to tolerate oral intake. Strict control of blood pressure and blood glucose. Continue medical management per primary team. DVT prophylaxis. GI prophylaxis Case management on board regarding discharge planning. Plan discussed in detail with the nursing staff.
--- NOTE | 2020-06-21 19:52 | CON ---
DATE OF CONSULTATION: 06/21/2020 REASON FOR CONSULTATION: Right foot wounds. HISTORY OF PRESENT ILLNESS: Ms. Jauregui is a 55-year-old woman, who was admitted with a subacute stroke. She was apparently last seen on Thursday of last week and came in on Thursday after a co-worker went to check on her since she has had not shown up to work. She was found down, having soiled herself with a dense right hemiparesis and expressive aphasia. She was admitted to the Stroke Unit and has been seen by Neurology and Neurosurgery with no medical or surgical intervention possible for her stroke. She was noted on admission to have some wounds to her right foot. The patient is able to answer yes, no questions and form a few words. When I asked her if she was lying on her right side after her stroke, she replies yes. She has had 2 toe amputations of the right foot reportedly over a decade ago, although she cannot give me the details. All of the past history and surgical history were derived from chart review as the patient has a dense expressive aphasia. She has no known history of diabetes, but does have a history of hypertension, COPD, and thoracic aneurysm. PAST SURGICAL HISTORY: TAVR in 2018 and toe amputations many years ago on the right foot for unknown reasons. FAMILY HISTORY: Not documented. SOCIAL HISTORY: She continues to smoke prior to her admission. No reported history of drug or alcohol abuse, although drug screen was positive for marijuana on admission. REVIEW OF SYSTEMS: Not obtainable except in a very limited way using yes or no questions. Some of the questions the patient does not seem to understand or perhaps she does not feel that yes or no answer is appropriate for these. She specifically denies chest pain, shortness of breath, abdominal pain. She does have pain in her foot. She expresses that she has had pain in her foot for over a week, but less than a month. She is unable to tell me how long she has had sores on her feet. OUTPATIENT MEDICATIONS: By report, she was only using some inhalers and had been off all other medications for couple of years and had not seen her doctor in that time period either. INPATIENT MEDICATIONS: Include aspirin, atorvastatin, and multiple p.r.n.'s. PHYSICAL EXAMINATION: VITAL SIGNS: The patient is afebrile with normal vital signs, O2 sats are 95% on 3 L nasal cannula. GENERAL: A pleasant woman, in no acute distress. She is alert and following commands and able to answer yes or no questions and form a few words, but does not seem to understand or respond to all questions. HEENT: Facial movements are symmetric. Pupils are equal. Extraocular movements are intact. NECK: Supple without lymphadenopathy or thyroid nodules. HEART: Regular in its rate and rhythm without murmurs, rubs, or gallops. LUNGS: Clear to auscultation bilaterally. ABDOMEN: Soft, nontender, nondistended. EXTREMITIES: Warm and well perfused. She has well-healed 4th and 5th toe amputation sites on the right foot. There is an eschar on the amputation site as well as the dorsal surface of her 2nd and 3rd toes with a small amount of redness and a small ulceration on her right lateral heel, all of which have been present since her admission and appear stable compared with photographs taken on the . There was a small amount of expressible drainage from the right 3rd toe on palpation, so this eschar was debrided and a small underlying ulcer unroofed. This does not probe to the deep tissues or the joint, but it does directly overlie in the proximal interphalangeal joint. The other eschars are dry without expressible purulence, although there is a little ulceration lateral to the eschar on the 5th toe amputation site. The eschars have been painted with Betadine and there is a Mepilex dressing over the lateral malleolus ulceration. She has normal pulses in her feet and normal capillary refill. NEURO: Dense expressive aphasia and possible receptive aphasia and dense right hemiparesis. She is able to squeeze her hand very weakly and partly raise her upper arm off the bed and partly lift her thigh and move her ankle and her toes weakly. LABORATORY DATA: White count is normal at 9.5, hematocrit 56, platelets 154. Coags were normal on admission. Electrolytes unremarkable. C-reactive protein elevated at 4.87. Creatine kinase elevated at 242. UA showed a large amount of blood, moderate bilirubin with rare crystals. COVID serology was negative. Her x-ray did not show any evidence of osteomyelitis. ASSESSMENT AND PLAN: Pressure ulcerations of the right foot due to immobility following stroke. She has some mild erythema surrounding her 3rd toe and this eschar has been unroofed and small ulcerations underlying and drained. She will need ongoing wound care for this. At this point, there is no indication for further amputation or debridement. I agree with painting the dry eschars with Betadine and packing the shallow ulcerations. I will see the patient with Wound Care intermittently, but no operative intervention is anticipated. Job ID: [id number]
--- NOTE | 2020-06-21 20:04 | ULT ---
BILATERAL CAROTID DUPLEX ULTRASOUND WITH SPECTRAL ANALYSIS AND COLOR FLOW EVALUATION: 06/21/20 HISTORY: Stroke. FINDINGS: Najera scale, color flow, Doppler evaluation, and spectral analysis of the bilateral carotid arteries i s performed with 2D imaging. There is mild atherosclerotic plaque seen eccentrically within the right common carotid artery. There does not appear to be significant atherosclerotic plaque in the interna l carotid arteries bilaterally. There is overall decreased peak systolic velocity measurements in the internal carotid arteries, but this is an overall symmetric finding. There is less than 50% maximal stenosis in the bilateral internal carotid arteries according to the peak systolic velocities in the ICA/CCA ratios. The peak systolic velocity in the right ICA is 25.4 cm/s with an ICA/CCA ratio of 0.5 2. peak systolic velocity in the left ICA is 40.5 cm/s with an ICA/CCA ratio of 0.75. Antegrade flow is demonstrated in the right vertebral artery, but there is evidence of retrograde rosamaria w in the left vertebral artery. IMPRESSION: 1. Overall decreased peak systolic velocity measurements in each internal carotid artery. There is less than 50% maximal stenosis in the bilateral internal carotid arteries. 2. Retrograde flow in the left vertebral artery suggesting subclavian steal phenomenon. POS: KRGuy
[2020-06-21] MEDS: Atorvastatin Calcium 40 MG TAB PO SCH (20:55)
[2020-06-22] MEDS: Lactated Ringer's 1,000 ML IV SCH (05:00)
--- NOTE | 2020-06-22 06:45 | PDOC.FM ---
- Subjective Subjective: Patient resting comfortably in bed. Nursing reports no problems overnight. Swelling of right upper extremity improved from yesterday. - Objective Vital Signs & Weight: Vital Signs (12 hours) Temp Pulse Resp BP Pulse Ox 06/22/20 04:00 98.1 F 78 16 110/73 95 06/22/20 02:34 95 06/22/20 00:00 98.2 F 77 16 117/87 98 06/21/20 20:50 71 113/74 06/21/20 20:00 98.0 F 75 16 98/65 100 Weight Admit Weight 106.367 kg Weight 106.367 kg I&O: 06/20/20 06/21/20 06/22/20 06:59 06:59 06:59 Intake Total 1127 1514 1068 Output Total 016 861 7657 Balance 677 589 -332 Result Diagrams: 06/22/20 06:36 06/22/20 06:36 EKG Reviewed by me: Yes (tele: SR 70s) Radiology Reviewed by me: Yes Radiology: carotid doppler: <50% stenosis bilateral, subclavian steal Phys Exam - Physical Examination Constitutional: NAD resting comfortably in bed HEENT: moist MMs, sclera anicteric Neck: full ROM Respiratory: no wheezing, clear to auscultation bilateral Cardiovascular: RRR, no significant murmur Gastrointestinal: soft, non-tender Musculoskeletal: no edema, pulses present expressive dysphagia, right hemiparesis Psychiatric: normal affect Skin: no rash Dx/Plan - Plan Plan: 55 yo F with a history of COPD and thoracic aortic aneurysm s/p TAVR in 2018 presenting for L MCA infarct L MCA ischemic infarct - Patient was found down at home and presented with expressive aphasia and R sided hemiparesis. Last seen by coworkers on Jun 13. - CT brain: evidence of L MCA infarct, 1.2 cm left external capsular parenchymal hematoma - MRI brain: subacute L MCA infarct distribution - q4h neuro checks, ID aspirin 300mg, statin when tolerating PO - lipids, Mg, Phos wnl. TSH slightly low, but T3 and T4 normal. CK improved with IVF. - ECHO EF 60-65%, diastolic dysfunction - Neurosurgery consulted in ED - Stroke team - PT, OT - Speech: thick nectars and puree - Neurology consult (Lucrecia) - CM assisting with placement. Patient is uninsured. - Continue aspirin and statin HFpEF - repeat ECHO showed EF of 60-65% with evidence of diastolic dysfunction - CXR showed no evidence of fluid overload Swollen Right UE - Venous doppler negative for DVT, showed subq edema - Likely due to immobility - [facility] Decision Maker - Contacted patient's nephew, Geoffrey Jauregui, who he states is all the family patient has left. - Palliative consult placed - likely Geoffrey will act as MPOA S/P right toe amputations - Wound care consult - CRP 4.87 - R foot Xray: inflammation and possible infection - Surgery consult (Aguilera): no surgical intervention at this time. Will follow along with wound care intermittently. NSTEMI type II - likely related to hypovalemia - trop 0.05, 0.04, 0.05 - EKG: sinus rhythm COPD - Per partner, patient uses inhalers at home Hx thoracic aortic aneurysm s/p TAVR 2018 - [place] [address] Dooley - unaware if patient has had any subsequent follow-up HTN - Does not take medications at home - Has been wnl here. Will continue to monitor. DVT: SCDs Code: FULL Diet: thick nectar, puree PCP: Swetha Dispo: Continue to work with PT and OT. Patient is uninsured and placement will be an issue. CM is working closely with patient's nephew, his MPOA. Addendum - Attending - Attending Attestation Date/Time: 06/22/20 1007 I personally evaluated the patient and discussed the management with Dr. Krishna. I agree with the History, Examination, Assessment and Plan documented above with any addition or exceptions noted below. Continue improvement. PT/OT/ST following. Will need placement.
[2020-06-22 06:51] LABS: #Basophils 0.1 thou/uL (0.0-0.2); #Eosinphils 0.5 thou/uL (0.0-0.7); #Monocytes 1.2 thou/uL (0.11-0.59); #Neutrophils 6.7 thou/uL (1.40-6.50); %Basophils 0.9 % (0.0-1.0); %Lymphocytes 10.3 % (21.0-51.0); %Monocytes 12.4 % (0.0-10.0); %Neutrophils 71.4 % (42.0-75.0); Hemoglobin 16.7 g/dL (12.0-16.0); Mean Corpuscular HGB CONC 29.4 g/dL (32.0-36.0); Mean Corpuscular Hemoglobin 27.3 pg (27.0-31.0); Mean Corpuscular Volume 92.7 fL (78.0-98.0); Mean Platelet Volume 9.7 fL (7.4-10.4); Platelet Count 173 thou/uL (130-400); RBC Distribution Width 17.6 % (11.5-14.5); Red Blood Cell (RBC) Count 6.12 mill/uL (4.20-5.40); White Blood Cell (WBC) Count 9.3 thou/uL (4.8-10.8)
[2020-06-22 07:05] LABS: Anion Gap 10 mmol/L (10-20); BUN (Urea Nitrogen) 10 mg/dL (9.8-20.1); Calc. Creatinine Clearance 153 mL/min (70-130); Calcium 8.6 mg/dL (7.8-10.44); Carbon Dioxide 37 mmol/L (22-29); Chloride 102 mmol/L (98-107); Glucose 101 mg/dL (70-105); Potassium 4.1 mmol/L (3.5-5.1); Sodium 145 mmol/L (136-145)
[2020-06-22 07:51] LABS: MDiff Complete? YES; Platelet Morphology Comment Appears Adequate; Polychromasia MODERATE = 3-4 cells (100X) (0-2/hpf)
[2020-06-22] MEDS: Aspirin 325 MG TAB PO SCH (09:13)
--- NOTE | 2020-06-22 14:07 | PDOC.NEUPN ---
- Subjective Encounter Date: 06/22/20 Subjective: Ms. Jauregui is doing much better this morning. She is much more awake alert and responding to yes and no questions when given options. - Objective Vital Signs & Weight: Vital Signs (12 hours) Temp Pulse Pulse Resp BP BP Pulse Ox 06/22/20 11:27 98.5 F 73 16 100/69 100 06/22/20 09:35 68 95/52 L 06/22/20 07:22 98.3 F 68 20 107/70 99 06/22/20 04:00 98.1 F 78 16 110/73 95 06/22/20 02:34 95 Pulse Ox Pulse Ox 06/22/20 11:27 06/22/20 09:35 97 99 06/22/20 07:22 06/22/20 04:00 06/22/20 02:34 Weight Admit Weight 234 lb 8 oz Weight 234 lb 8 oz I&O: 06/21/20 06/22/20 06/23/20 06:59 06:59 06:59 Intake Total 1514 1068 686 Output Total 922 1400 Balance 589 -332 686 Result Diagrams: 06/22/20 06:36 06/22/20 06:36 Radiology Reviewed by me: Yes EKG Reviewed by me: Yes ROS - Review of Systems ROS unobtainable: due to mental status (Aphasia) - Medication Medications: Active Medications Generic Name Dose Route Start Last Admin Trade Name Freq PRN Reason Stop Dose Admin Aspirin 325 mg 06/21/20 09:00 06/22/20 09:13 Aspirin 325 Mg Tab PO 325 mg DAILY DEMETRI Administration Atorvastatin Calcium 40 mg 06/21/20 21:00 06/21/20 20:55 Atorvastatin Calcium 40 Mg Tab PO 40 mg HS DEMETRI Administration - Exam General Appearance: awake alert Eye: PERRL ENT: normocephalic atraumatic Neck: supple Respiratory: CTAB Cardiovascular: RRR Gastrointestinal: soft Extremities: no cyanosis Skin: normal turgor Neurological: no new deficit, facial droop, hemiplegia, speech deficit Musculoskeletal: normal tone, no muscle wasting PSYCH: normal affect, normal behavior, not oriented (Aphasic) Results - Labs Result Diagrams: 06/22/20 06:36 06/22/20 06:36 Lab results: WBC 9.3 thou/uL (4.8-10.8) 06/22/20 06:36 Hgb 16.7 g/dL (12.0-16.0) H 06/22/20 06:36 Hct 56.8 % (36.0-47.0) H 06/22/20 06:36 MCV 92.7 fL (78.0-98.0) 06/22/20 06:36 Plt Count 173 thou/uL (130-400) 06/22/20 06:36 Neutrophils % 71.4 % (42.0-75.0) 06/22/20 06:36 Sodium 145 mmol/L (136-145) 06/22/20 06:36 Potassium 4.1 mmol/L (3.5-5.1) 06/22/20 06:36 Chloride 102 mmol/L (98-107) 06/22/20 06:36 Carbon Dioxide 37 mmol/L (22-29) H 06/22/20 06:36 BUN 10 mg/dL (9.8-20.1) 06/22/20 06:36 Creatinine 0.68 mg/dL (0.6-1.1) 06/22/20 06:36 Glucose 101 mg/dL (70-105) 06/22/20 06:36 Lactic Acid 1.6 mmol/L (0.5-2.2) 06/18/20 16:41 Calcium 8.6 mg/dL (7.8-10.44) 06/22/20 06:36 Total Bilirubin 1.2 mg/dL (0.2-1.2) 06/18/20 12:49 AST 46 U/L (5-34) H 06/18/20 12:49 ALT 23 U/L (8-55) 06/18/20 12:49 Alkaline Phosphatase 79 U/L (40-110) 06/18/20 12:49 Creatine Kinase 242 U/L (29-168) H 06/20/20 06:33 CK-MB (CK-2) 11.6 ng/mL (0-6.6) H* 06/18/20 12:49 Troponin I 0.053 ng/mL (< 0.028) H 06/18/20 20:21 C-Reactive Protein 4.87 mg/dL (= or < 0.5) H 06/21/20 04:40 Serum Total Protein 6.6 g/dL (6.0-8.3) 06/18/20 12:49 Albumin 3.6 g/dL (3.5-5.0) 06/18/20 12:49 Urine Ketones 40 mg/dL (Negative) A 06/20/20 09:04 Urine Blood Large (Negative) A 06/20/20 09:04 Urine Nitrite Negative (Negative) 06/20/20 09:04 Ur Leukocyte Esterase Trace (Negative) H 06/20/20 09:04 Urine RBC Greater than 50 HPF (0-3) A 06/20/20 09:04 Urine WBC 7-10 HPF (0-3) A 06/20/20 09:04 Ur Squamous Epith Cells 0-3 HPF (0-3) 06/20/20 09:04 Urine Bacteria Rare-Few HPF (None Seen) 06/20/20 09:04 - Radiology Interpretation MRI - head Additional Comment: MRI of the brain is consistent with the acute infarction in the left MCA territory PN A/P (1) Acute CVA (cerebrovascular accident) due to Hgb-S disease Code(s): I63.9 - CEREBRAL INFARCTION, UNSPECIFIED; D57.1 - SICKLE-CELL DISEASE WITHOUT CRISIS Status: Acute (2) COPD (chronic obstructive pulmonary disease) Status: Acute (3) HTN (hypertension) Code(s): I10 - ESSENTIAL (PRIMARY) HYPERTENSION Status: Acute (4) Heart failure with preserved ejection fraction Code(s): I50.30 - UNSPECIFIED DIASTOLIC (CONGESTIVE) HEART FAILURE Status: Acute (5) Hyperlipidemia Code(s): E78.5 - HYPERLIPIDEMIA, UNSPECIFIED Status: Acute (6) Thoracic aortic aneurysm Code(s): I71.2 - THORACIC AORTIC ANEURYSM, WITHOUT RUPTURE Status: Acute - Plan Daily Plan: PT/OT, speech therapy, DVT proph w/SCDs Consults: Other 55-year-old female with medical history significant for COPD and thoracic aortic aneurysm s/p TAVR in 2018 presented with expressive aphasia and right- sided hemiparesis. Patient more alert and was responding appropriately to yes and no questions. There is some improvement in the weakness on the right side especially in the right upper extremity. Awaiting discharge to rehab facility when bed bed becomes available Completed modified barium swallow and was approved for nectar and pured diet which she is tolerating well. MRI of the brain reviewed which was consistent with subacute infarction in the left middle cerebral artery distribution. EEG reviewed which was negative for seizure activity. 2D echo showed left ventricle ejection fraction 60 to 65%. Evidence of diastolic dysfunction. No thrombus or PFO. Carotid Dopplers to rule out hemodynamically significant stenosis are pending Continue telemetry to rule out arrhythmias. PT/OT. Continue aspirin per rectal 300 mg till cleared by speech Continue high intensity statin and patient is able to tolerate oral intake. Strict control of blood pressure and blood glucose. Continue medical management per primary team. DVT prophylaxis. GI prophylaxis Case management on board regarding discharge planning. Plan discussed in detail with the nursing staff.
--- NOTE | 2020-06-22 17:40 | PRG ---
DATE OF SERVICE: 06/22/2020 I followed Ms. Jauregui with the Wound Care Team today. She has no further expressible drainage from the eschar, which was unroofed yesterday. eschar is still in place, but there is no tunneling or loosening. We are going to place Medihoney to this and paint the other dry eschars with Betadine. I will see her on Thursday if she is still in the hospital. Otherwise, she can follow up in the outpatient setting in a couple of weeks. With appropriate offloading, these wounds should heal. Job ID: [id number]
[2020-06-22] MEDS: Atorvastatin Calcium 40 MG TAB PO SCH (21:44)
[2020-06-23 04:55] LABS: #Eosinphils 0.5 thou/uL (0.0-0.7); #Lymphocytes 0.9 thou/uL (1.20-3.40); #Monocytes 0.9 thou/uL (0.11-0.59); #Neutrophils 4.8 thou/uL (1.40-6.50); %Basophils 0.7 % (0.0-1.0); %Eosinophils 6.4 % (0.0-10.0); %Lymphocytes 12.4 % (21.0-51.0); %Monocytes 12.7 % (0.0-10.0); %Neutrophils 67.8 % (42.0-75.0); Hemoglobin 16.5 g/dL (12.0-16.0); Mean Corpuscular HGB CONC 29.5 g/dL (32.0-36.0); Mean Corpuscular Hemoglobin 27.8 pg (27.0-31.0); Mean Corpuscular Volume 94.4 fL (78.0-98.0); Mean Platelet Volume 6.8 fL (7.4-10.4); Platelet Count 187 thou/uL (130-400); RBC Distribution Width 18.7 % (11.5-14.5); Red Blood Cell (RBC) Count 5.94 mill/uL (4.20-5.40); White Blood Cell (WBC) Count 7.1 thou/uL (4.8-10.8)
[2020-06-23 05:10] LABS: Anion Gap 13 mmol/L (10-20); BUN (Urea Nitrogen) 8 mg/dL (9.8-20.1); Calc. Creatinine Clearance 180 mL/min (70-130); Calcium 8.5 mg/dL (7.8-10.44); Carbon Dioxide 31 mmol/L (22-29); Chloride 103 mmol/L (98-107); Glucose 101 mg/dL (70-105); Sodium 143 mmol/L (136-145)
--- NOTE | 2020-06-23 05:53 | PDOC.FM ---
- Subjective Subjective: Resting comfortably in bed. Nods no when asked about pain. Per nursing, no events overnight. - Objective MAR Reviewed: Yes Vital Signs & Weight: Vital Signs (12 hours) Temp Pulse Resp BP Pulse Ox 06/23/20 04:00 97.8 F 70 16 99/68 98 06/23/20 02:27 14 99 06/23/20 00:00 96.3 F L 84 15 100/70 94 L 06/22/20 20:00 98.0 F 71 16 102/71 99 Weight Admit Weight 106.367 kg Weight 106.367 kg I&O: 06/21/20 06/22/20 06/23/20 06:59 06:59 06:59 Intake Total 1514 1068 1700 Output Total 925 1400 1750 Balance 589 -332 -50 Result Diagrams: 06/23/20 04:17 06/23/20 04:17 Phys Exam - Physical Examination Constitutional: NAD HEENT: moist MMs, sclera anicteric Neck: supple Respiratory: no wheezing, clear to auscultation bilateral Cardiovascular: RRR, no significant murmur Gastrointestinal: soft, positive bowel sounds Musculoskeletal: no edema Neurological: moves all 4 limbs Deviation from normal: Communicates with nods Skin: no rash Dx/Plan - Plan Plan: 55 yo F with a history of COPD and thoracic aortic aneurysm s/p TAVR in 2018 presenting for L MCA infarct L MCA ischemic infarct Patient was found down at home and presented with expressive aphasia and R sided hemiparesis. Last seen by coworkers on Jun 13. Lipids, Mg, Phos wnl. TSH slightly low, but T3 and T4 normal. Neurosurgery consulted in ED. Dr. Singer, neurology, also consulted. - CT brain: evidence of L MCA infarct, 1.2 cm left external capsular parenchymal hematoma - MRI brain: subacute L MCA infarct distribution - Q4h neuro checks - Continue [place] aspirin 300mg, statin - Continue POT/OT - Speech consulted: recommend thick nectars and puree - CM assisting with placement as patient is uninsured. HFpEF - Repeat ECHO showed EF of 60-65% with evidence of diastolic dysfunction - CXR showed no evidence of fluid overload Swollen Right UE, improved - Venous doppler negative for DVT, showed subq edema - Likely due to immobility - [employer] Medical Decision Maker - Contacted patient's nephew, Geoffrey Jauregui, who he states is all the family patient has left. - Palliative consult placed - Geoffrey acting as MPOA Escar of right foot Hx right toe amputations - Wound care consult - R foot Xray: inflammation and possible infection - Surgery consult (Aguilera): no surgical intervention at this time. Will see patient again on 06/26 or outpatient in 2wk if d/c earlier NSTEMI type II - likely related to hypovalemia - trop 0.05, 0.04, 0.05 - EKG: sinus rhythm COPD - Per partner, patient uses inhalers at home Hx thoracic aortic aneurysm s/p TAVR 2018 - [place] [address] Dooley - unaware if patient has had any subsequent follow-up HTN - Does not take medications at home - Has been wnl here. Will continue to monitor. DVT: SCDs Code: FULL Diet: thick nectar, puree PCP: SHREE Posada Dispo: Ready for discharge pending placement Addendum - Attending - Attending Attestation Date/Time: 06/23/20 1610 I personally evaluated the patient and discussed the management with Dr. Gaston. I agree with the History, Examination, Assessment and Plan documented above with any addition or exceptions noted below. L MCA ischemic infarct- on ASA and statin. Awaiting placement.
[2020-06-23] MEDS: Aspirin 325 MG TAB PO SCH (08:52)
--- NOTE | 2020-06-23 09:37 | EKG ---
Test Reason : Blood Pressure : / mmHG Vent. Rate : 077 BPM Atrial Rate : 077 BPM P-R Int : 140 ms QRS Dur : 080 ms QT Int : 408 ms P-R-T Axes : 050 -22 035 degrees QTc Int : 461 ms Normal sinus rhythm Possible Left atrial enlargement Borderline ECG Confirmed by JUANJOSE RAGSDALE DO ([id number]), editor city [place] ([id number]) on 06/23/2020 9:37:06 AM Referred By: Confirmed By:JUANJOSE RAGSDALE DO
[2020-06-23] MEDS: Polyethylene Glycol 3350 17 GM Packet PO PRN (11:21)
[2020-06-23] MEDS: Atorvastatin Calcium 40 MG TAB PO SCH (20:58)
--- NOTE | 2020-06-24 05:55 | PDOC.FM ---
- Subjective Subjective: Patient resting, watching TV when entering room. Slept well overnight. Denies headache, chest pain, SOB, abdominal pain, and edema. - Objective MAR Reviewed: Yes Vital Signs & Weight: Vital Signs (12 hours) Temp Pulse Resp BP Pulse Ox 06/24/20 04:35 100 06/24/20 04:00 97.9 F 73 20 98/64 100 06/24/20 00:00 98.1 F 78 18 103/70 100 06/23/20 20:00 98.1 F 73 20 102/66 100 Weight Admit Weight 106.367 kg Weight 106.367 kg I&O: 06/22/20 06/23/20 06/24/20 06:59 06:59 06:59 Intake Total 1068 1700 720 Output Total 1400 1750 675 Balance -332 -50 45 Result Diagrams: 06/23/20 04:17 06/23/20 04:17 Phys Exam - Physical Examination Constitutional: NAD HEENT: moist MMs, sclera anicteric Neck: supple, full ROM Respiratory: no wheezing, clear to auscultation bilateral Cardiovascular: RRR, no significant murmur Gastrointestinal: soft, non-tender, positive bowel sounds Musculoskeletal: no edema Neurological: moves all 4 limbs Psychiatric: normal affect, A&O x 3 Skin: no rash Dx/Plan - Plan Plan: 55 yo F with a history of COPD and thoracic aortic aneurysm s/p TAVR in 2018 p resenting for L MCA infarct L MCA ischemic infarct Patient was found down at home and presented with expressive aphasia and R sided hemiparesis. Last seen by coworkers on Jun 13. Lipids, Mg, Phos wnl. TSH slightly low, but T3 and T4 normal. Neurosurgery consulted in ED. Dr. Singer, neurology, also consulted. - CT brain: evidence of L MCA infarct, 1.2 cm left external capsular parenchymal hematoma - MRI brain: subacute L MCA infarct distribution - Q4h neuro checks - Continue OR aspirin 300mg, statin - Continue POT/OT - Speech consulted: recommend thick nectars and puree - CM assisting with placement as patient is uninsured. HFpEF - Repeat ECHO showed EF of 60-65% with evidence of diastolic dysfunction - CXR showed no evidence of fluid overload Swollen Right UE, resolved - Venous doppler negative for DVT, showed subq edema - Likely due to immobility - Continue to elevate Medical Decision Maker - Contacted patient's nephew, Geoffrey Jauregui, who he states is all the family patient has left. - Palliative consult placed - Geoffrey acting as MPOA Escar of right foot Hx right toe amputations - Wound care consult - R foot Xray: inflammation and possible infection - Surgery consult ([place]gu[place]): no surgical intervention at this time. Will see patient again on 06/26 or outpatient in 2wk if d/c earlier NSTEMI type II - likely related to hypovalemia - trop 0.05, 0.04, 0.05 - EKG: sinus rhythm COPD - Per partner, patient uses inhalers at home Hx thoracic aortic aneurysm s/p TAVR 2018 - Repaired [place] [address] Dooley - unaware if patient has had any subsequent follow-up HTN - Does not take medications at home - Has been wnl here. Will continue to monitor. DVT: SCDs Code: FULL Diet: thick nectar, puree PCP: SHREE Posada Dispo: Ready for discharge pending placement Addendum - Attending - Attending Attestation Date/Time: 06/24/20 8250 I personally evaluated the patient and discussed the management with Dr. Gaston. I agree with the History, Examination, Assessment and Plan documented above with any addition or exceptions noted below. L MCA ischemic stroke-repeat ST eval ordered and pt NPO as she struggled with dinner intake last night. Awaiting placement.
[2020-06-24] MEDS: Aspirin 325 MG TAB PO SCH (12:00)
[2020-06-24] MEDS: Polyethylene Glycol 3350 17 GM Packet PO PRN (16:43)
[2020-06-24] MEDS: Atorvastatin Calcium 40 MG TAB PO SCH (21:08)
--- NOTE | 2020-06-25 06:39 | PDOC.FM ---
- Subjective Subjective: Ms. Jauregui denies any problems or concerns this morning. She is answer yes and no questions appropriately but still displaying an inability to form most words. - Objective Vital Signs & Weight: Vital Signs (12 hours) Temp Pulse Resp BP Pulse Ox 06/25/20 03:37 98.0 F 74 16 106/71 97 06/24/20 23:40 98.3 F 76 16 103/70 99 06/24/20 19:57 97.9 F 72 16 91/59 L 97 Weight Admit Weight 106.367 kg Weight 106.367 kg I&O: 06/23/20 06/24/20 06/25/20 06:59 06:59 06:59 Intake Total 1700 720 840 Output Total 1750 1225 1650 Balance -50 -505 -810 Result Diagrams: 06/23/20 04:17 06/23/20 04:17 EKG Reviewed by me: Yes (tele: SR 70-90s) Phys Exam - Physical Examination Constitutional: NAD HEENT: moist MMs, sclera anicteric Neck: no JVD Respiratory: no wheezing, clear to auscultation bilateral Cardiovascular: RRR, no significant murmur Gastrointestinal: soft, non-tender, no distention Musculoskeletal: no edema, pulses present expressive aphasia, right hemiparesis Psychiatric: normal affect Skin: no rash Dx/Plan - Plan Plan: 55 yo F with a history of COPD and thoracic aortic aneurysm s/p TAVR in 2018 presenting for L MCA infarct L MCA ischemic infarct Patient was found down at home and presented with expressive aphasia and R sided hemiparesis. Last seen by coworkers on Jun 13. Lipids, Mg, Phos wnl. TSH slightly low, but T3 and T4 normal. Neurosurgery consulted in ED. Dr. Singer, neurology, also consulted. - CT brain: evidence of L MCA infarct, 1.2 cm left external capsular parenchymal hematoma - MRI brain: subacute L MCA infarct distribution - Q4h neuro checks - Continue aspirin, statin - Continue POT/OT - Reevaluated by speech yesterday and approved to continue thick nectars and puree - CM assisting with placement as patient is uninsured. HFpEF - Repeat ECHO showed EF of 60-65% with evidence of diastolic dysfunction - CXR showed no evidence of fluid overload Swollen Right UE, resolved - Venous doppler negative for DVT, showed subq edema Medical Decision Maker - Contacted patient's nephew, Geoffrey Jauregui, who he states is all the family patient has left. - Palliative consult placed - Geoffrey acting as MPOA Escar of right foot Hx right toe amputations - Wound care consult - R foot Xray: inflammation and possible infection - Surgery consult ([place]): no surgical intervention at this time. Will see patient again on 06/26 or outpatient in 2wk if d/c earlier NSTEMI type II - likely related to hypovalemia - trop 0.05, 0.04, 0.05 - EKG: sinus rhythm COPD - Per partner, patient uses inhalers at home Hx thoracic aortic aneurysm s/p TAVR 2018 - Repaired [place] [address] Dooley - unaware if patient has had any subsequent follow-up HTN - Does not take medications at home - Has been wnl here. Will continue to monitor. DVT: SCDs Code: FULL Diet: thick nectar, puree PCP: SHREE Posada Dispo: Ready for discharge pending placement Addendum - Attending - Attending Attestation Date/Time: 06/25/20 1290 I personally evaluated the patient and discussed the management with Dr. Krishna. I agree with the History, Examination, Assessment and Plan documented above with any addition or exceptions noted below. Patient here after acute CVA. Continue usual post CVA care. Continue therapy. Awaiting placement which is difficult given her lack of funding source.
[2020-06-25] MEDS: Aspirin 325 MG TAB PO SCH (09:15)
--- NOTE | 2020-06-25 12:41 | PDOC.NEUPN ---
- Subjective Encounter Date: 06/25/20 Subjective: No acute issues in the last 24 hours. Patient doing well but still has significant speech deficits and right hemiparesis. - Objective Vital Signs & Weight: Vital Signs (12 hours) Temp Pulse Resp BP Pulse Ox 06/25/20 11:51 98.1 F 66 14 80/55 L 91 L 06/25/20 07:30 94 L 06/25/20 07:00 98.3 F 79 18 99/69 94 L 06/25/20 03:37 98.0 F 74 16 106/71 97 Weight Admit Weight 234 lb 8 oz Weight 234 lb 8 oz I&O: 06/24/20 06/25/20 06/26/20 06:59 06:59 06:59 Intake Total 720 840 300 Output Total 1225 1650 Balance -505 -810 300 Result Diagrams: 06/23/20 04:17 06/23/20 04:17 Radiology Reviewed by me: Yes EKG Reviewed by me: Yes ROS - Review of Systems ROS unobtainable: due to mental status (Aphasia) - Medication Medications: Active Medications Generic Name Dose Route Start Last Admin Trade Name Freq PRN Reason Stop Dose Admin Aspirin 325 mg 06/21/20 09:00 06/25/20 09:15 Aspirin 325 Mg Tab PO 325 mg DAILY DEMETRI Administration Atorvastatin Calcium 40 mg 06/21/20 21:00 06/24/20 21:08 Atorvastatin Calcium 40 Mg Tab PO 40 mg HS DEMETRI Administration Polyethylene Glycol 17 gm 06/23/20 10:55 06/24/20 16:43 Polyethylene Glycol 3350 17 Gm Packet PO 17 gm DAILYPRN PRN Administration Constipation Sodium Chloride 10 ml 06/18/20 14:33 06/22/20 21:44 Flush - Normal Saline 10 Ml Syringe IVF 10 ml PRN PRN Administration Saline Flush - Exam General Appearance: awake alert Eye: PERRL ENT: normocephalic atraumatic Neck: supple Respiratory: CTAB Cardiovascular: RRR Gastrointestinal: soft Extremities: no cyanosis Skin: normal turgor Neurological: no new deficit, facial droop, hemiplegia, speech deficit Neurological - other findings: Right-sided focal deficits Musculoskeletal: normal tone, no muscle wasting PSYCH: normal affect, normal behavior, not oriented (Aphasic) Results - Labs Result Diagrams: 06/23/20 04:17 06/23/20 04:17 Lab results: WBC 7.1 thou/uL (4.8-10.8) 06/23/20 04:17 Hgb 16.5 g/dL (12.0-16.0) H 06/23/20 04:17 Hct 56.0 % (36.0-47.0) H 06/23/20 04:17 MCV 94.4 fL (78.0-98.0) 06/23/20 04:17 Plt Count 187 thou/uL (130-400) 06/23/20 04:17 Neutrophils % 67.8 % (42.0-75.0) 06/23/20 04:17 Sodium 143 mmol/L (136-145) 06/23/20 04:17 Potassium 4.0 mmol/L (3.5-5.1) 06/23/20 04:17 Chloride 103 mmol/L (98-107) 06/23/20 04:17 Carbon Dioxide 31 mmol/L (22-29) H 06/23/20 04:17 BUN 8 mg/dL (9.8-20.1) L 06/23/20 04:17 Creatinine 0.58 mg/dL (0.6-1.1) L 06/23/20 04:17 Glucose 101 mg/dL (70-105) 06/23/20 04:17 Lactic Acid 1.6 mmol/L (0.5-2.2) 06/18/20 16:41 Calcium 8.5 mg/dL (7.8-10.44) 06/23/20 04:17 Total Bilirubin 1.2 mg/dL (0.2-1.2) 06/18/20 12:49 AST 46 U/L (5-34) H 06/18/20 12:49 ALT 23 U/L (8-55) 06/18/20 12:49 Alkaline Phosphatase 79 U/L (40-110) 06/18/20 12:49 Creatine Kinase 242 U/L (29-168) H 06/20/20 06:33 CK-MB (CK-2) 11.6 ng/mL (0-6.6) H* 06/18/20 12:49 Troponin I 0.053 ng/mL (< 0.028) H 06/18/20 20:21 C-Reactive Protein 4.87 mg/dL (= or < 0.5) H 06/21/20 04:40 Serum Total Protein 6.6 g/dL (6.0-8.3) 06/18/20 12:49 Albumin 3.6 g/dL (3.5-5.0) 06/18/20 12:49 Urine Ketones 40 mg/dL (Negative) A 06/20/20 09:04 Urine Blood Large (Negative) A 06/20/20 09:04 Urine Nitrite Negative (Negative) 06/20/20 09:04 Ur Leukocyte Esterase Trace (Negative) H 06/20/20 09:04 Urine RBC Greater than 50 HPF (0-3) A 06/20/20 09:04 Urine WBC 7-10 HPF (0-3) A 06/20/20 09:04 Ur Squamous Epith Cells 0-3 HPF (0-3) 06/20/20 09:04 Urine Bacteria Rare-Few HPF (None Seen) 06/20/20 09:04 - Radiology Interpretation MRI - head Additional Comment: MRI of the brain showed acute infarction PN A/P (1) Acute CVA (cerebrovascular accident) due to Hgb-S disease Code(s): I63.9 - CEREBRAL INFARCTION, UNSPECIFIED; D57.1 - SICKLE-CELL DISEASE WITHOUT CRISIS Status: Acute (2) COPD (chronic obstructive pulmonary disease) Status: Acute (3) HTN (hypertension) Code(s): I10 - ESSENTIAL (PRIMARY) HYPERTENSION Status: Acute (4) Heart failure with preserved ejection fraction Code(s): I50.30 - UNSPECIFIED DIASTOLIC (CONGESTIVE) HEART FAILURE Status: Acute (5) Hyperlipidemia Code(s): E78.5 - HYPERLIPIDEMIA, UNSPECIFIED Status: Acute (6) Thoracic aortic aneurysm Code(s): I71.2 - THORACIC AORTIC ANEURYSM, WITHOUT RUPTURE Status: Acute - Plan Daily Plan: PT/OT, speech therapy, DVT proph w/SCDs 55-year-old female with medical history significant for COPD and thoracic aortic aneurysm s/p TAVR in 2018 presented with expressive aphasia and right- sided hemiparesis. Patient responding appropriately to yes and no questions. There is some improvement in right hemiparesis and also speech is improved but still significantly impaired. Completed modified barium swallow and was approved for nectar and pured diet which she is tolerating well. MRI of the brain reviewed which was consistent with subacute infarction in the left middle cerebral artery distribution. EEG reviewed which was negative for seizure activity. 2D echo showed left ventricle ejection fraction 60 to 65%. Evidence of diastolic dysfunction. No thrombus or PFO. Carotid Dopplers to rule out hemodynamically significant stenosis are pending Continue telemetry to rule out arrhythmias. PT/OT. Continue aspirin and high intensity statin for secondary stroke prevention Strict control of blood pressure and blood glucose. Continue medical management per primary team. DVT prophylaxis. GI prophylaxis Case management on board regarding discharge planning. Plan discussed in detail with the nursing staff.
[2020-06-25] MEDS: Atorvastatin Calcium 40 MG TAB PO SCH (21:36)
--- NOTE | 2020-06-26 06:51 | PDOC.FM ---
- Subjective Subjective: Patient is resting comfortably in bed on her BIPAP. She answer yes and no appropriately and follows commands. - Objective Vital Signs & Weight: Vital Signs (12 hours) Temp Pulse Resp BP Pulse Ox 06/26/20 04:00 98.3 F 83 16 101/82 98 06/25/20 23:59 98.1 F 68 15 100/67 92 L 06/25/20 23:41 62 14 06/25/20 21:35 96 06/25/20 21:28 101/65 06/25/20 20:00 98.1 F 69 15 81/61 L 96 Weight Admit Weight 106.367 kg Weight 106.367 kg I&O: 06/24/20 06/25/20 06/26/20 06:59 06:59 06:59 Intake Total 720 840 900 Output Total 1225 1650 925 Balance -505 -810 -25 Result Diagrams: 06/23/20 04:17 06/23/20 04:17 EKG Reviewed by me: Yes (tele: 19 beats PAT, SR 60-70s) Phys Exam - Physical Examination Constitutional: NAD HEENT: moist MMs, sclera anicteric Neck: no JVD Respiratory: no wheezing, clear to auscultation bilateral Cardiovascular: RRR, no significant murmur Gastrointestinal: soft, non-tender Musculoskeletal: no edema, pulses present weakness right side, expressive aphasia Psychiatric: normal affect Skin: no rash Dx/Plan - Plan Plan: 55 yo F with a history of COPD and thoracic aortic aneurysm s/p TAVR in 2018 presenting for L MCA infarct L MCA ischemic infarct Patient was found down at home and presented with expressive aphasia and R sided hemiparesis. Last seen by coworkers on Jun 13. Lipids, Mg, Phos wnl. TSH slightly low, but T3 and T4 normal. Neurosurgery consulted in ED. Dr. Singer, neurology, also consulted. - CT brain: evidence of L MCA infarct, 1.2 cm left external capsular parenchymal hematoma - MRI brain: subacute L MCA infarct distribution - Q4h neuro checks - Continue aspirin, statin - Continue POT/OT - Reevaluated by speech yesterday and approved to continue thick nectars and puree - CM assisting with placement as patient is uninsured. Many referrals have been sent out, awaiting approval. HFpEF - Repeat ECHO showed EF of 60-65% with evidence of diastolic dysfunction - CXR showed no evidence of fluid overload Swollen Right UE, resolved - Venous doppler negative for DVT, showed subq edema Medical Decision Maker - Contacted patient's nephew, Geoffrey Jauregui, who he states is all the family patient has left. - Palliative consult placed - Geoffrey acting as MPOA Escar of right foot Hx right toe amputations - Wound care consult - R foot Xray: inflammation and possible infection - Surgery consult ([place]): no surgical intervention at this time. Will see patient again on 06/26 or outpatient in 2wk if d/c earlier NSTEMI type II - likely related to hypovalemia - trop 0.05, 0.04, 0.05 - EKG: sinus rhythm COPD - Per partner, patient uses inhalers at home Hx thoracic aortic aneurysm s/p TAVR 2018 - Rep[place] [address] Dooley - unaware if patient has had any subsequent follow-up HTN - Does not take medications at home - Has been wnl here. Will continue to monitor. DVT: SCDs Code: FULL Diet: thick nectar, puree PCP: SHREE Posada Dispo: Ready for discharge pending placement Addendum - Attending - Attending Attestation Date/Time: 06/26/20 9176 I personally evaluated the patient and discussed the management with Dr. Krishna. I agree with the History, Examination, Assessment and Plan documented above with any addition or exceptions noted below. Patient stable. Continue post CVA care and therapy. Awaiting placement as unable to safely return home.
[2020-06-26] MEDS: Aspirin 325 MG TAB PO SCH (08:43)
--- NOTE | 2020-06-26 12:27 | PDOC.NEUPN ---
- Subjective Encounter Date: 06/26/20 Subjective: She denies any new complaints in the last 24 hours. She is able to answer yes and no questions appropriately. Continues to have significant right hemiparesis and speech deficits. - Objective Vital Signs & Weight: Vital Signs (12 hours) Temp Pulse Resp BP Pulse Ox 06/26/20 11:43 98.4 F 93 16 98/45 L 96 06/26/20 08:00 96 06/26/20 07:30 98.2 F 61 14 95/65 95 06/26/20 04:00 98.3 F 83 16 101/82 98 Weight Admit Weight 234 lb 8 oz Weight 234 lb 8 oz I&O: 06/25/20 06/26/20 06/27/20 06:59 06:59 06:59 Intake Total 840 900 Output Total 1650 925 Balance -810 -25 Result Diagrams: 06/23/20 04:17 06/23/20 04:17 Radiology Reviewed by me: Yes EKG Reviewed by me: Yes ROS - Review of Systems ROS unobtainable: due to mental status (Aphasia) - Medication Medications: Active Medications Generic Name Dose Route Start Last Admin Trade Name Freq PRN Reason Stop Dose Admin Aspirin 325 mg 06/21/20 09:00 06/26/20 08:43 Aspirin 325 Mg Tab PO 325 mg DAILY DEMETRI Administration Atorvastatin Calcium 40 mg 06/21/20 21:00 06/25/20 21:36 Atorvastatin Calcium 40 Mg Tab PO 40 mg HS DEMETRI Administration Polyethylene Glycol 17 gm 06/23/20 10:55 06/24/20 16:43 Polyethylene Glycol 3350 17 Gm Packet PO 17 gm DAILYPRN PRN Administration Constipation Sodium Chloride 10 ml 06/18/20 14:33 06/22/20 21:44 Flush - Normal Saline 10 Ml Syringe IVF 10 ml PRN PRN Administration Saline Flush - Exam General Appearance: awake alert Eye: PERRL ENT: normocephalic atraumatic Neck: supple Respiratory: CTAB Cardiovascular: RRR Gastrointestinal: soft Extremities: no cyanosis Skin: normal turgor Neurological: facial droop, hemiplegia, speech deficit Neurological - other findings: Right-sided focal deficit Musculoskeletal: normal tone, no muscle wasting PSYCH: normal affect, normal behavior, not oriented (Aphasic) Results - Labs Result Diagrams: 06/23/20 04:17 06/23/20 04:17 Lab results: WBC 7.1 thou/uL (4.8-10.8) 06/23/20 04:17 Hgb 16.5 g/dL (12.0-16.0) H 06/23/20 04:17 Hct 56.0 % (36.0-47.0) H 06/23/20 04:17 MCV 94.4 fL (78.0-98.0) 06/23/20 04:17 Plt Count 187 thou/uL (130-400) 06/23/20 04:17 Neutrophils % 67.8 % (42.0-75.0) 06/23/20 04:17 Sodium 143 mmol/L (136-145) 06/23/20 04:17 Potassium 4.0 mmol/L (3.5-5.1) 06/23/20 04:17 Chloride 103 mmol/L (98-107) 06/23/20 04:17 Carbon Dioxide 31 mmol/L (22-29) H 06/23/20 04:17 BUN 8 mg/dL (9.8-20.1) L 06/23/20 04:17 Creatinine 0.58 mg/dL (0.6-1.1) L 06/23/20 04:17 Glucose 101 mg/dL (70-105) 06/23/20 04:17 Lactic Acid 1.6 mmol/L (0.5-2.2) 06/18/20 16:41 Calcium 8.5 mg/dL (7.8-10.44) 06/23/20 04:17 Total Bilirubin 1.2 mg/dL (0.2-1.2) 06/18/20 12:49 AST 46 U/L (5-34) H 06/18/20 12:49 ALT 23 U/L (8-55) 06/18/20 12:49 Alkaline Phosphatase 79 U/L (40-110) 06/18/20 12:49 Creatine Kinase 242 U/L (29-168) H 06/20/20 06:33 CK-MB (CK-2) 11.6 ng/mL (0-6.6) H* 06/18/20 12:49 Troponin I 0.053 ng/mL (< 0.028) H 06/18/20 20:21 C-Reactive Protein 4.87 mg/dL (= or < 0.5) H 06/21/20 04:40 Serum Total Protein 6.6 g/dL (6.0-8.3) 06/18/20 12:49 Albumin 3.6 g/dL (3.5-5.0) 06/18/20 12:49 Urine Ketones 40 mg/dL (Negative) A 06/20/20 09:04 Urine Blood Large (Negative) A 06/20/20 09:04 Urine Nitrite Negative (Negative) 06/20/20 09:04 Ur Leukocyte Esterase Trace (Negative) H 06/20/20 09:04 Urine RBC Greater than 50 HPF (0-3) A 06/20/20 09:04 Urine WBC 7-10 HPF (0-3) A 06/20/20 09:04 Ur Squamous Epith Cells 0-3 HPF (0-3) 06/20/20 09:04 Urine Bacteria Rare-Few HPF (None Seen) 06/20/20 09:04 - Radiology Interpretation MRI - head Additional Comment: MRI of the brain was consistent with acute infarction in the left MCA territory PN A/P (1) Acute CVA (cerebrovascular accident) due to Hgb-S disease Code(s): I63.9 - CEREBRAL INFARCTION, UNSPECIFIED; D57.1 - SICKLE-CELL DISEASE WITHOUT CRISIS Status: Acute (2) COPD (chronic obstructive pulmonary disease) Status: Acute (3) HTN (hypertension) Code(s): I10 - ESSENTIAL (PRIMARY) HYPERTENSION Status: Acute (4) Heart failure with preserved ejection fraction Code(s): I50.30 - UNSPECIFIED DIASTOLIC (CONGESTIVE) HEART FAILURE Status: Acute (5) Hyperlipidemia Code(s): E78.5 - HYPERLIPIDEMIA, UNSPECIFIED Status: Acute (6) Thoracic aortic aneurysm Code(s): I71.2 - THORACIC AORTIC ANEURYSM, WITHOUT RUPTURE Status: Acute - Plan Daily Plan: PT/OT, speech therapy, DVT proph w/SCDs 55-year-old female with medical history significant for COPD and thoracic aortic aneurysm s/p TAVR in 2018 presented with expressive aphasia and right- sided hemiparesis. Patient responding appropriately to yes and no questions. There is mild improvement in right hemiparesis and also speech is improved but still significantly impaired. She is working with therapy and participating well. She completed modified barium swallow and was approved for nectar and pured diet which she is tolerating well. MRI of the brain reviewed which was consistent with subacute infarction in the left middle cerebral artery distribution. EEG reviewed which was negative for seizure activity. 2D echo showed left ventricle ejection fraction 60 to 65%. Evidence of diastolic dysfunction. No thrombus or PFO. Carotid Dopplers to rule out hemodynamically significant stenosis are pending Continue telemetry to rule out arrhythmias. PT/OT. Continue aspirin and high intensity statin for secondary stroke prevention Strict control of blood pressure and blood glucose. Continue medical management per primary team. DVT prophylaxis. GI prophylaxis Case management on board regarding discharge planning. Plan discussed in detail with the nursing staff.
--- NOTE | 2020-06-26 14:59 | PDOC.FMACP ---
Advance Care Planning - Problem (1) Palliative care encounter Status: Acute Code(s): Z51.5 - ENCOUNTER FOR PALLIATIVE CARE (2) Acute CVA (cerebrovascular accident) Status: Acute Code(s): I63.9 - CEREBRAL INFARCTION, UNSPECIFIED (3) COPD (chronic obstructive pulmonary disease) Status: Acute (4) HTN (hypertension) Status: Acute Code(s): I10 - ESSENTIAL (PRIMARY) HYPERTENSION (5) Heart failure with preserved ejection fraction Status: Acute Code(s): I50.30 - UNSPECIFIED DIASTOLIC (CONGESTIVE) HEART FAILURE - Note Participants: surrogate decision-maker Summary: Palliative introduced Advanced Care Planning to Geoffrey Jauregui. The diagnosis, prognosis and goals of care were discussed. Appropriate forms and documentation to accomplish the goals of care were discussed. All questions were answered. He was determined to be surrogate decision maker, patient has no known MPOA or Directive to Physician documents. [facility] currently has no capacity for me dical decisions. Geoffrey Jauregui is attempting to seek disability for his aunt. Hopeful for transition to Skilled facility. Palliative care will sign off as consult was for Directive, establish surrogate decision maker. If we can assist in the future with revisiting Goal of care, revisit resuscitation status, complex decision making, prognosis disease assist please reconsult our team. Thank you this very appropriate consult and allowing Palliative Care to assist in the care of Ms Jauregui. Time Spent (mins): 20
[2020-06-26] MEDS: Atorvastatin Calcium 40 MG TAB PO SCH (21:50)
--- NOTE | 2020-06-27 06:50 | PDOC.FM ---
- Subjective Subjective: Ms. Jauregui was resting comfortably this morning. She denies any problems or being in pain. - Objective Vital Signs & Weight: Vital Signs (12 hours) Temp Pulse Resp BP Pulse Ox 06/27/20 04:00 97.9 F 61 22 H 93/54 L 100 06/27/20 00:33 75 95/58 L 06/27/20 00:22 99 06/27/20 00:00 97.6 F 64 16 89/57 L 99 06/26/20 22:18 64 16 06/26/20 20:00 98.2 F 69 18 90/62 94 L Weight Admit Weight 106.367 kg Weight 106.367 kg I&O: 06/25/20 06/26/20 06/27/20 06:59 06:59 06:59 Intake Total 840 900 840 Output Total 1650 925 0 Balance -810 -25 840 Result Diagrams: 06/23/20 04:17 06/23/20 04:17 EKG Reviewed by me: Yes (tele: SR 60-70s) Phys Exam - Physical Examination Constitutional: NAD HEENT: moist MMs, sclera anicteric Neck: no JVD Respiratory: no wheezing, clear to auscultation bilateral Cardiovascular: RRR, no significant murmur Gastrointestinal: soft, no distention Musculoskeletal: no edema, pulses present expressive aphasia, right hemiparesis Psychiatric: normal affect Deviation from normal: cannot assess orientation due to aphasia Skin: no rash Dx/Plan - Plan Plan: 55 yo F with a history of COPD and thoracic aortic aneurysm s/p TAVR in 2018 presenting for L MCA infarct L MCA ischemic infarct Patient was found down at home and presented with expressive aphasia and R sided hemiparesis. Last seen by coworkers on Jun 13. Lipids, Mg, Phos wnl. TSH slightly low, but T3 and T4 normal. Neurosurgery consulted in ED. Dr. Singer, neurology, also consulted. - CT brain: evidence of L MCA infarct, 1.2 cm left external capsular parenchymal hematoma - MRI brain: subacute L MCA infarct distribution - Q4h neuro checks - Continue aspirin, statin - Continue POT/OT - Reevaluated by speech yesterday and approved to continue thick nectars and puree - CM assisting with placement as patient is uninsured. Many referrals have been sent out, awaiting approval. Patient's nephew, her MPOA, is also working to apply patient for disability. HFpEF - Repeat ECHO showed EF of 60-65% with evidence of diastolic dysfunction - CXR showed no evidence of fluid overload Swollen Right UE, resolved - Venous doppler negative for DVT, showed subq edema Medical Decision Maker - Contacted patient's nephew, Geoffrey Jauregui, who he states is all the family patient has left. - Palliative consult placed - Geoffrey acting as MPOA Escar of right foot Hx right toe amputations - Wound care consult - R foot Xray: inflammation and possible infection - Surgery consult (Aguilera): no surgical intervention at this time. Will see patient again on 06/26 or outpatient in 2wk if d/c earlier NSTEMI type II - likely related to hypovalemia - trop 0.05, 0.04, 0.05 - EKG: sinus rhythm COPD - Per partner, patient uses inhalers at home Hx thoracic aortic aneurysm s/p TAVR 2018 - [place] [address] Dooley - unaware if patient has had any subsequent follow-up HTN - Does not take medications at home - Has been wnl here. Will continue to monitor. DVT: SCDs Code: FULL Diet: thick nectar, puree PCP: SHREE Posada Dispo: Ready for discharge pending placement Addendum - Attending - Attending Attestation Date/Time: 06/27/20 [id number] I personally evaluated the patient and discussed the management with Dr. Krishna. I agree with the History, Examination, Assessment and Plan documented above with any addition or exceptions noted below. Patient overall stable. Working with CM regarding placement as she is unsafe to return home in her current condition.
[2020-06-27] MEDS: Aspirin 325 MG TAB PO SCH (08:49)
--- NOTE | 2020-06-27 17:26 | PDOC.NEUPN ---
- Subjective Encounter Date: 06/27/20 Subjective: Ms. Jauregui is doing well but continues to have significant speech deficits and also right-sided focal deficits. - Objective Vital Signs & Weight: Vital Signs (12 hours) Temp Pulse Pulse Pulse Pulse Resp BP 06/27/20 15:15 98.4 F 62 20 06/27/20 13:20 71 77 82/53 L 06/27/20 11:30 98.4 F 69 20 06/27/20 09:29 70 06/27/20 07:45 98.2 F 60 20 BP BP BP Pulse Ox Pulse Ox 06/27/20 15:15 92/58 L 97 06/27/20 13:20 82/61 L 06/27/20 11:30 85/53 L 93 L 06/27/20 09:29 86/56 L 98 06/27/20 07:45 97/64 100 Weight Admit Weight 234 lb 8 oz Weight 234 lb 8 oz I&O: 06/26/20 06/27/20 06/28/20 06:59 06:59 06:59 Intake Total 900 840 600 Output Total 925 0 Balance -25 840 600 Result Diagrams: 06/23/20 04:17 06/23/20 04:17 Radiology Reviewed by me: Yes EKG Reviewed by me: Yes ROS - Review of Systems ROS unobtainable: due to mental status (Aphasic) - Medication Medications: Active Medications Generic Name Dose Route Start Last Admin Trade Name Freq PRN Reason Stop Dose Admin Aspirin 325 mg 06/21/20 09:00 06/27/20 08:49 Aspirin 325 Mg Tab PO 325 mg DAILY DEMETRI Administration Atorvastatin Calcium 40 mg 06/21/20 21:00 06/26/20 21:50 Atorvastatin Calcium 40 Mg Tab PO 40 mg HS DEMETRI Administration Polyethylene Glycol 17 gm 06/23/20 10:55 06/24/20 16:43 Polyethylene Glycol 3350 17 Gm Packet PO 17 gm DAILYPRN PRN Administration Constipation Sodium Chloride 10 ml 06/18/20 14:33 06/22/20 21:44 Flush - Normal Saline 10 Ml Syringe IVF 10 ml PRN PRN Administration Saline Flush - Exam General Appearance: awake alert Eye: PERRL ENT: normocephalic atraumatic Neck: supple Respiratory: CTAB Cardiovascular: RRR Gastrointestinal: soft Extremities: no cyanosis Skin: normal turgor Neurological: no new deficit, facial droop, hemiplegia, speech deficit Musculoskeletal: no muscle wasting PSYCH: normal affect, normal behavior, not oriented (Aphasic) Results - Labs Result Diagrams: 06/23/20 04:17 06/23/20 04:17 Lab results: WBC 7.1 thou/uL (4.8-10.8) 06/23/20 04:17 Hgb 16.5 g/dL (12.0-16.0) H 06/23/20 04:17 Hct 56.0 % (36.0-47.0) H 06/23/20 04:17 MCV 94.4 fL (78.0-98.0) 06/23/20 04:17 Plt Count 187 thou/uL (130-400) 06/23/20 04:17 Neutrophils % 67.8 % (42.0-75.0) 06/23/20 04:17 Sodium 143 mmol/L (136-145) 06/23/20 04:17 Potassium 4.0 mmol/L (3.5-5.1) 06/23/20 04:17 Chloride 103 mmol/L (98-107) 06/23/20 04:17 Carbon Dioxide 31 mmol/L (22-29) H 06/23/20 04:17 BUN 8 mg/dL (9.8-20.1) L 06/23/20 04:17 Creatinine 0.58 mg/dL (0.6-1.1) L 06/23/20 04:17 Glucose 101 mg/dL (70-105) 06/23/20 04:17 Lactic Acid 1.6 mmol/L (0.5-2.2) 06/18/20 16:41 Calcium 8.5 mg/dL (7.8-10.44) 06/23/20 04:17 Total Bilirubin 1.2 mg/dL (0.2-1.2) 06/18/20 12:49 AST 46 U/L (5-34) H 06/18/20 12:49 ALT 23 U/L (8-55) 06/18/20 12:49 Alkaline Phosphatase 79 U/L (40-110) 06/18/20 12:49 Creatine Kinase 242 U/L (29-168) H 06/20/20 06:33 CK-MB (CK-2) 11.6 ng/mL (0-6.6) H* 06/18/20 12:49 Troponin I 0.053 ng/mL (< 0.028) H 06/18/20 20:21 C-Reactive Protein 4.87 mg/dL (= or < 0.5) H 06/21/20 04:40 Serum Total Protein 6.6 g/dL (6.0-8.3) 06/18/20 12:49 Albumin 3.6 g/dL (3.5-5.0) 06/18/20 12:49 Urine Ketones 40 mg/dL (Negative) A 06/20/20 09:04 Urine Blood Large (Negative) A 06/20/20 09:04 Urine Nitrite Negative (Negative) 06/20/20 09:04 Ur Leukocyte Esterase Trace (Negative) H 06/20/20 09:04 Urine RBC Greater than 50 HPF (0-3) A 06/20/20 09:04 Urine WBC 7-10 HPF (0-3) A 06/20/20 09:04 Ur Squamous Epith Cells 0-3 HPF (0-3) 06/20/20 09:04 Urine Bacteria Rare-Few HPF (None Seen) 06/20/20 09:04 - Radiology Interpretation MRI - head Additional Comment: RI of the brain consistent with acute infarction PN A/P (1) Acute CVA (cerebrovascular accident) due to Hgb-S disease Code(s): I63.9 - CEREBRAL INFARCTION, UNSPECIFIED; D57.1 - SICKLE-CELL DISEASE WITHOUT CRISIS Status: Acute (2) COPD (chronic obstructive pulmonary disease) Status: Acute (3) HTN (hypertension) Code(s): I10 - ESSENTIAL (PRIMARY) HYPERTENSION Status: Acute (4) Heart failure with preserved ejection fraction Code(s): I50.30 - UNSPECIFIED DIASTOLIC (CONGESTIVE) HEART FAILURE Status: Acute (5) Hyperlipidemia Code(s): E78.5 - HYPERLIPIDEMIA, UNSPECIFIED Status: Acute (6) Thoracic aortic aneurysm Code(s): I71.2 - THORACIC AORTIC ANEURYSM, WITHOUT RUPTURE Status: Acute - Plan Daily Plan: PT/OT, speech therapy, DVT proph w/SCDs 55-year-old female with medical history significant for COPD and thoracic aortic aneurysm s/p TAVR in 2018 presented with expressive aphasia and right- sided hemiparesis. Patient responding appropriately to yes and no questions . Minimal improvement in right hemiparesis and also speech is improved but but still continues to have significant deficit. Overall, she is doing well and tolerating diet and participating in therapy. Awaiting discharge and case management is involved with discharge planning She completed modified barium swallow and was approved for nectar and pured diet which she is tolerating well. MRI of the brain reviewed which was consistent with subacute infarction in the left middle cerebral artery distribution. EEG reviewed which was negative for seizure activity. 2D echo showed left ventricle ejection fraction 60 to 65%. Evidence of diastolic dysfunction. No thrombus or PFO. Carotid Dopplers to rule out hemodynamically significant stenosis are pending Continue telemetry to rule out arrhythmias. PT/OT. Continue aspirin and high intensity statin for secondary stroke prevention Strict control of blood pressure and blood glucose. Continue medical management per primary team. DVT prophylaxis. GI prophylaxis Plan discussed in detail with the nursing staff.
[2020-06-27] MEDS: Atorvastatin Calcium 40 MG TAB PO SCH (21:49)
--- NOTE | 2020-06-28 06:53 | PDOC.FM ---
- Subjective Subjective: Patient was resting comfortably in bed with her CPAP on. She opened her eyes and shook her head yes and no when I spoke to her. - Objective Vital Signs & Weight: Vital Signs (12 hours) Temp Pulse Resp BP Pulse Ox 06/28/20 04:23 65 18 98 06/28/20 03:27 98.5 F 61 18 85/54 L 97 06/27/20 23:42 98.0 F 65 23 H 91/64 100 06/27/20 21:50 96 06/27/20 19:30 20 96 06/27/20 19:19 97.8 F 70 26 H 92/51 L 88 L Weight Admit Weight 106.367 kg Weight 106.367 kg I&O: 06/26/20 06/27/20 06/28/20 06:59 06:59 06:59 Intake Total 900 840 900 Output Total 925 0 Balance -25 840 900 Result Diagrams: 06/28/20 07:11 06/28/20 07:11 EKG Reviewed by me: Yes (tele: SR, danielle PACs, HR 70s) Phys Exam - Physical Examination Constitutional: NAD HEENT: moist MMs, sclera anicteric Neck: full ROM Respiratory: no wheezing, clear to auscultation bilateral Cardiovascular: RRR, no significant murmur Gastrointestinal: soft, non-tender, no distention Musculoskeletal: no edema, pulses present rigth hemiparesis, expressive aphasia Psychiatric: normal affect Skin: no rash Dx/Plan - Plan Plan: 55 yo F with a history of COPD and thoracic aortic aneurysm s/p TAVR in 2018 presenting for L MCA infarct L MCA ischemic infarct Patient was found down at home and presented with expressive aphasia and R sided hemiparesis. Last seen by coworkers on Jun 13. Lipids, Mg, Phos wnl. TSH slightly low, but T3 and T4 normal. Neurosurgery consulted in ED. Dr. Singer, neurology, also consulted. - CT brain: evidence of L MCA infarct, 1.2 cm left external capsular parenchymal hematoma - MRI brain: subacute L MCA infarct distribution - Q4h neuro checks - Continue aspirin, statin - Continue POT/OT - Reevaluated by speech yesterday and approved to continue thick nectars and puree - CM assisting with placement as patient is uninsured. Many referrals have been sent out, awaiting approval. Patient's nephew, her MPOA, is also working to apply patient for disability. HFpEF - Repeat ECHO showed EF of 60-65% with evidence of diastolic dysfunction - CXR showed no evidence of fluid overload Swollen Right UE, resolved - Venous doppler negative for DVT, showed subq edema Medical Decision Maker - Contacted patient's nephew, Geoffrey Jauregui, who he states is all the family patient has left. - Palliative consult placed - Geoffrey acting as MPOA Escar of right foot Hx right toe amputations - Wound care consult - R foot Xray: inflammation and possible infection - Surgery consult (Aguilera): no surgical intervention at this time. Will see patient again on 06/26 or outpatient in 2wk if d/c earlier NSTEMI type II - likely related to hypovalemia - trop 0.05, 0.04, 0.05 - EKG: sinus rhythm COPD - Per partner, patient uses inhalers at home Hx thoracic aortic aneurysm s/p TAVR 2018 - [place] [address] Dooley - unaware if patient has had any subsequent follow-up HTN - Does not take medications at home - Has been wnl here. Will continue to monitor. DVT: SCDs Code: FULL Diet: thick nectar, puree PCP: SHREE Posada Dispo: Continue work with PT/OT. MPOA, nephew, is working on starting disability application which will be helpful in getting approval for placement. Ready for discharge pending placement. Addendum - Attending - Attending Attestation Date/Time: 06/28/20 1041 I personally evaluated the patient and discussed the management with Dr. Krishna. I agree with the History, Examination, Assessment and Plan documented above with any addition or exceptions noted below. Patient stable. Awaiting placement as she is unable to care for herself and not safe to return home in her current condition.
[2020-06-28 07:34] LABS: #Basophils 0.1 thou/uL (0.0-0.2); #Eosinphils 0.4 thou/uL (0.0-0.7); #Lymphocytes 1.6 thou/uL (1.20-3.40); #Monocytes 1.4 thou/uL (0.11-0.59); #Neutrophils 5.9 thou/uL (1.40-6.50); %Basophils 1.4 % (0.0-1.0); %Eosinophils 4.4 % (0.0-10.0); %Lymphocytes 17.4 % (21.0-51.0); %Monocytes 14.3 % (0.0-10.0); %Neutrophils 62.5 % (42.0-75.0); Hemoglobin 16.4 g/dL (12.0-16.0); Mean Corpuscular HGB CONC 29.7 g/dL (32.0-36.0); Mean Corpuscular Hemoglobin 27.7 pg (27.0-31.0); Mean Corpuscular Volume 93.2 fL (78.0-98.0); Mean Platelet Volume 9.2 fL (7.4-10.4); Platelet Count 301 thou/uL (130-400); RBC Distribution Width 18.2 % (11.5-14.5); Red Blood Cell (RBC) Count 5.92 mill/uL (4.20-5.40); White Blood Cell (WBC) Count 9.4 thou/uL (4.8-10.8)
[2020-06-28 07:38] LABS: Anion Gap 10 mmol/L (10-20); BUN (Urea Nitrogen) 11 mg/dL (9.8-20.1); Calc. Creatinine Clearance 171 mL/min (70-130); Carbon Dioxide 35 mmol/L (22-29); Chloride 102 mmol/L (98-107); Glucose 96 mg/dL (70-105); Potassium 4.2 mmol/L (3.5-5.1); Sodium 143 mmol/L (136-145)
[2020-06-28] MEDS: Aspirin 325 MG TAB PO SCH (09:56)
--- NOTE | 2020-06-28 14:08 | PDOC.NEUPN ---
- Subjective Encounter Date: 06/28/20 Subjective: No acute complaints in the last 24 hours. She is awake and alert but continues to have significant speech and focal right-sided weakness - Objective Vital Signs & Weight: Vital Signs (12 hours) Temp Pulse Pulse Resp BP BP Pulse Ox 06/28/20 11:24 97.9 F 68 16 89/54 L 93 L 06/28/20 10:27 78 120/63 06/28/20 07:39 97.8 F 60 16 93/62 96 06/28/20 07:30 96 06/28/20 04:23 65 18 98 06/28/20 03:27 98.5 F 61 18 85/54 L 97 Weight Admit Weight 234 lb 8 oz Weight 234 lb 8 oz I&O: 06/27/20 06/28/20 06/29/20 06:59 06:59 06:59 Intake Total 840 900 600 Output Total 0 Balance 840 900 600 Result Diagrams: 06/28/20 07:11 06/28/20 07:11 Radiology Reviewed by me: Yes EKG Reviewed by me: Yes ROS - Review of Systems ROS unobtainable: due to mental status - Medication Medications: Active Medications Generic Name Dose Route Start Last Admin Trade Name Freq PRN Reason Stop Dose Admin Aspirin 325 mg 06/21/20 09:00 06/28/20 09:56 Aspirin 325 Mg Tab PO 325 mg DAILY DEMETRI Administration Atorvastatin Calcium 40 mg 06/21/20 21:00 06/27/20 21:49 Atorvastatin Calcium 40 Mg Tab PO 40 mg HS DEMETRI Administration Polyethylene Glycol 17 gm 06/23/20 10:55 06/24/20 16:43 Polyethylene Glycol 3350 17 Gm Packet PO 17 gm DAILYPRN PRN Administration Constipation Sodium Chloride 10 ml 06/18/20 14:33 06/22/20 21:44 Flush - Normal Saline 10 Ml Syringe IVF 10 ml PRN PRN Administration Saline Flush - Exam General Appearance: awake alert Eye: PERRL ENT: normocephalic atraumatic Neck: supple Respiratory: CTAB Cardiovascular: RRR Gastrointestinal: soft Extremities: no cyanosis Skin: normal turgor Neurological: no new deficit, facial droop, hemiplegia, speech deficit Musculoskeletal: normal tone, no muscle wasting PSYCH: normal affect, normal behavior (Aphasic) Results - Labs Result Diagrams: 06/28/20 07:11 06/28/20 07:11 Lab results: WBC 9.4 thou/uL (4.8-10.8) 06/28/20 07:11 Hgb 16.4 g/dL (12.0-16.0) H 06/28/20 07:11 Hct 55.2 % (36.0-47.0) H 06/28/20 07:11 MCV 93.2 fL (78.0-98.0) 06/28/20 07:11 Plt Count 301 thou/uL (130-400) 06/28/20 07:11 Neutrophils % 62.5 % (42.0-75.0) 06/28/20 07:11 Sodium 143 mmol/L (136-145) 06/28/20 07:11 Potassium 4.2 mmol/L (3.5-5.1) 06/28/20 07:11 Chloride 102 mmol/L (98-107) 06/28/20 07:11 Carbon Dioxide 35 mmol/L (22-29) H 06/28/20 07:11 BUN 11 mg/dL (9.8-20.1) 06/28/20 07:11 Creatinine 0.61 mg/dL (0.6-1.1) 06/28/20 07:11 Glucose 96 mg/dL (70-105) 06/28/20 07:11 Lactic Acid 1.6 mmol/L (0.5-2.2) 06/18/20 16:41 Calcium 9.0 mg/dL (7.8-10.44) 06/28/20 07:11 Total Bilirubin 1.2 mg/dL (0.2-1.2) 06/18/20 12:49 AST 46 U/L (5-34) H 06/18/20 12:49 ALT 23 U/L (8-55) 06/18/20 12:49 Alkaline Phosphatase 79 U/L (40-110) 06/18/20 12:49 Creatine Kinase 242 U/L (29-168) H 06/20/20 06:33 CK-MB (CK-2) 11.6 ng/mL (0-6.6) H* 06/18/20 12:49 Troponin I 0.053 ng/mL (< 0.028) H 11/30/20 20:21 C-Reactive Protein 4.87 mg/dL (= or < 0.5) H 06/21/20 04:40 Serum Total Protein 6.6 g/dL (6.0-8.3) 06/18/20 12:49 Albumin 3.6 g/dL (3.5-5.0) 06/18/20 12:49 Urine Ketones 40 mg/dL (Negative) A 06/20/20 09:04 Urine Blood Large (Negative) A 06/20/20 09:04 Urine Nitrite Negative (Negative) 06/20/20 09:04 Ur Leukocyte Esterase Trace (Negative) H 06/20/20 09:04 Urine RBC Greater than 50 HPF (0-3) A 06/20/20 09:04 Urine WBC 7-10 HPF (0-3) A 06/20/20 09:04 Ur Squamous Epith Cells 0-3 HPF (0-3) 06/20/20 09:04 Urine Bacteria Rare-Few HPF (None Seen) 06/20/20 09:04 - Radiology Interpretation MRI - head Additional Comment: MRI of the brain was consistent with acute infarction in the left middle cerebral artery distribution PN A/P (1) Acute CVA (cerebrovascular accident) due to Hgb-S disease Code(s): I63.9 - CEREBRAL INFARCTION, UNSPECIFIED; D57.1 - SICKLE-CELL DISEASE WITHOUT CRISIS Status: Acute (2) COPD (chronic obstructive pulmonary disease) Status: Acute (3) HTN (hypertension) Code(s): I10 - ESSENTIAL (PRIMARY) HYPERTENSION Status: Acute (4) Heart failure with preserved ejection fraction Code(s): I50.30 - UNSPECIFIED DIASTOLIC (CONGESTIVE) HEART FAILURE Status: Acu te (5) Hyperlipidemia Code(s): E78.5 - HYPERLIPIDEMIA, UNSPECIFIED Status: Acute (6) Thoracic aortic aneurysm Code(s): I71.2 - THORACIC AORTIC ANEURYSM, WITHOUT RUPTURE Status: Acute - Plan Daily Plan: PT/OT, speech therapy, DVT proph w/SCDs 55-year-old female with medical history significant for COPD and thoracic ao rtic aneurysm s/p TAVR in 2018 presented with expressive aphasia and right-sided hemiparesis. Patient responding appropriately to yes and no questions . Minimal improvement in right hemiparesis and also speech is improved but but still continues to have significant deficits. The patient continues to do well and case management is on board regarding discharge planning. She completed modified barium swallow and is tolerating nectar and pured diet well. MRI of the brain reviewed which was consistent with subacute infarction in the left middle cerebral artery distribution. EEG reviewed which was negative for seizure activity. 2D echo showed left ventricle ejection fraction 60 to 65%. Evidence of diastolic dysfunction. No thrombus or PFO. Carotid Dopplers to rule out hemodynamically significant stenosis are pending Continue telemetry to rule out arrhythmias. PT/OT. Continue aspirin and high intensity statin for secondary stroke prevention Strict control of blood pressure and blood glucose. Continue medical management per primary team. DVT prophylaxis. GI prophylaxis Plan discussed in detail with the nursing staff.
[2020-06-28] MEDS: Atorvastatin Calcium 40 MG TAB PO SCH (20:57)
--- NOTE | 2020-06-29 06:46 | PDOC.FM ---
- Subjective Subjective: Ms. Jauregui was resting comfortably in bed. She shook her head no when I asked her if she had any problems or concerns. I spoke with Anita, her case folder, yesterday and she said the process to get her placement is going to be a long one and it is all dependent on her nephew starting the process of disability. - Objective Vital Signs & Weight: Vital Signs (12 hours) Temp Pulse Resp BP Pulse Ox 06/29/20 04:00 98.5 F 93 16 94/65 95 06/29/20 00:33 93 L 06/28/20 23:53 97.9 F 73 17 101/63 93 L 06/28/20 19:44 97.8 F 73 16 85/57 L 94 L Weight Admit Weight 106.367 kg Weight 106.367 kg I&O: 06/27/20 06/28/20 06/29/20 06:59 06:59 06:59 Intake Total 840 900 900 Output Total 0 Balance 840 900 900 Result Diagrams: 06/28/20 07:11 06/28/20 07:11 EKG Reviewed by me: Yes (tele: SR 70-90s) Phys Exam - Physical Examination Constitutional: NAD HEENT: moist MMs, sclera anicteric Neck: no JVD Respiratory: no wheezing, clear to auscultation bilateral Cardiovascular: RRR, no significant murmur Gastrointestinal: soft, non-tender Musculoskeletal: no edema, pulses present weakness in R UE and LE, expressive aphasia Psychiatric: normal affect Skin: no rash Dx/Plan - Plan Plan: 55 yo F with a history of COPD and thoracic aortic aneurysm s/p TAVR in 2018 presenting for L MCA infarct L MCA ischemic infarct Patient was found down at home and presented with expressive aphasia and R sided hemiparesis. Last seen by coworkers on Jun 13. Lipids, Mg, Phos wnl. TSH slightly low, but T3 and T4 normal. Neurosurgery consulted in ED. Dr. Singer, neurology, also consulted. - CT brain: evidence of L MCA infarct, 1.2 cm left external capsular parenchymal hematoma - MRI brain: subacute L MCA infarct distribution - Q4h neuro checks - Continue aspirin, statin - Continue POT/OT - Reevaluated by speech yesterday and approved to continue thick nectars and puree - CM assisting with placement as patient is uninsured. Many referrals have been sent out, awaiting approval. Patient's nephew, her MPOA, is also working to apply patient for disability. HFpEF - Repeat ECHO showed EF of 60-65% with evidence of diastolic dysfunction - CXR showed no evidence of fluid overload Swollen Right UE, resolved - Venous doppler negative for DVT, showed subq edema Medical Decision Maker - Contacted patient's nephew, Geoffrey Jauregui, who he states is all the family patient has left. - Palliative consult placed - Geoffrey acting as MPOA Escar of right foot Hx right toe amputations - Wound care consult - R foot Xray: inflammation and possible infection - Surgery consult (Aguilera): no surgical intervention at this time. Will see patient again on 06/26 or outpatient in 2wk if d/c earlier NSTEMI type II - likely related to hypovalemia - trop 0.05, 0.04, 0.05 - EKG: sinus rhythm COPD - Per partner, patient uses inhalers at home Hx thoracic aortic aneurysm s/p TAVR 2018 - [place] [address] Dooley - unaware if patient has had any subsequent follow-up HTN - Does not take medications at home - Has been wnl here. Will continue to monitor. DVT: SCDs Code: FULL Diet: thick nectar, puree PCP: SHREE Posada Dispo: Continue work with PT/OT. RAFAEL, ruth, is working on starting disability application which will be helpful in getting approval for placement. Ready for discharge pending placement. Addendum - Attending - Attending Attestation Date/Time: 06/29/20 [id number] I personally evaluated the patient and discussed the management with Dr. Krishna. I agree with the History, Examination, Assessment and Plan documented above with any addition or exceptions noted below. Stable, pending placement.
[2020-06-29] MEDS: Aspirin 325 MG TAB PO SCH (09:44)
--- NOTE | 2020-06-29 12:55 | PDOC.NEUPN ---
- Subjective Encounter Date: 06/29/20 Subjective: Patient has no acute complaints the last 24 hours. - Objective Vital Signs & Weight: Vital Signs (12 hours) Temp Pulse Resp BP Pulse Ox 06/29/20 11:50 99.1 F 89 20 84/55 L 96 06/29/20 08:00 96 06/29/20 07:35 98.1 F 86 20 97/70 96 06/29/20 04:00 98.5 F 93 16 94/65 95 Weight Admit Weight 234 lb 8 oz Weight 234 lb 8 oz I&O: 06/28/20 06/29/20 06/30/20 06:59 06:59 06:59 Intake Total 900 900 118 Balance 900 900 118 Result Diagrams: 06/28/20 07:11 06/28/20 07:11 Radiology Reviewed by me: Yes EKG Reviewed by me: Yes ROS - Review of Systems ROS unobtainable: due to mental status - Medication Medications: Active Medications Generic Name Dose Route Start Last Admin Trade Name Freq PRN Reason Stop Dose Admin Aspirin 325 mg 06/21/20 09:00 06/29/20 09:44 Aspirin 325 Mg Tab PO 325 mg DAILY DEMETRI Administration Atorvastatin Calcium 40 mg 06/21/20 21:00 06/28/20 20:57 Atorvastatin Calcium 40 Mg Tab PO 40 mg HS DEMETRI Administration Polyethylene Glycol 17 gm 06/23/20 10:55 06/24/20 16:43 Polyethylene Glycol 3350 17 Gm Packet PO 17 gm DAILYPRN PRN Administration Constipation Sodium Chloride 10 ml 06/18/20 14:33 06/22/20 21:44 Flush - Normal Saline 10 Ml Syringe IVF 10 ml PRN PRN Administration Saline Flush - Exam General Appearance: awake alert Eye: PERRL ENT: normocephalic atraumatic Neck: supple Respiratory: CTAB Cardiovascular: RRR Gastrointestinal: soft Extremities: no cyanosis Skin: normal turgor Neurological: no new deficit, facial droop, hemiplegia, speech deficit Musculoskeletal: normal tone, no muscle wasting PSYCH: normal affect, normal behavior, not oriented Results - Labs Result Diagrams: 06/28/20 07:11 06/28/20 07:11 Lab results: WBC 9.4 thou/uL (4.8-10.8) 06/28/20 07:11 Hgb 16.4 g/dL (12.0-16.0) H 06/28/20 07:11 Hct 55.2 % (36.0-47.0) H 06/28/20 07:11 MCV 93.2 fL (78.0-98.0) 06/28/20 07:11 Plt Count 301 thou/uL (130-400) 06/28/20 07:11 Neutrophils % 62.5 % (42.0-75.0) 06/28/20 07:11 Sodium 143 mmol/L (136-145) 06/28/20 07:11 Potassium 4.2 mmol/L (3.5-5.1) 06/28/20 07:11 Chloride 102 mmol/L (98-107) 06/28/20 07:11 Carbon Dioxide 35 mmol/L (22-29) H 06/28/20 07:11 BUN 11 mg/dL (9.8-20.1) 06/28/20 07:11 Creatinine 0.61 mg/dL (0.6-1.1) 06/28/20 07:11 Glucose 96 mg/dL (70-105) 06/28/20 07:11 Lactic Acid 1.6 mmol/L (0.5-2.2) 06/18/20 16:41 Calcium 9.0 mg/dL (7.8-10.44) 06/28/20 07:11 Total Bilirubin 1.2 mg/dL (0.2-1.2) 06/18/20 12:49 AST 46 U/L (5-34) H 06/18/20 12:49 ALT 23 U/L (8-55) 06/18/20 12:49 Alkaline Phosphatase 79 U/L (40-110) 06/18/20 12:49 Creatine Kinase 242 U/L (29-168) H 06/20/20 06:33 CK-MB (CK-2) 11.6 ng/mL (0-6.6) H* 06/18/20 12:49 Troponin I 0.053 ng/mL (< 0.028) H 06/18/20 20:21 C-Reactive Protein 4.87 mg/dL (= or < 0.5) H 06/21/20 04:40 Serum Total Protein 6.6 g/dL (6.0-8.3) 06/18/20 12:49 Albumin 3.6 g/dL (3.5-5.0) 06/18/20 12:49 Urine Ketones 40 mg/dL (Negative) A 06/20/20 09:04 Urine Blood Large (Negative) A 06/20/20 09:04 Urine Nitrite Negative (Negative) 06/20/20 09:04 Ur Leukocyte Esterase Trace (Negative) H 06/20/20 09:04 Urine RBC Greater than 50 HPF (0-3) A 06/20/20 09:04 Urine WBC 7-10 HPF (0-3) A 06/20/20 09:04 Ur Squamous Epith Cells 0-3 HPF (0-3) 06/20/20 09:04 Urine Bacteria Rare-Few HPF (None Seen) 06/20/20 09:04 - Radiology Interpretation MRI - head Additional Comment: MRI of the brain was consistent with acute infarction in the left MCA distribution PN A/P (1) Acute CVA (cerebrovascular accident) due to Hgb-S disease Code(s): I63.9 - CEREBRAL INFARCTION, UNSPECIFIED; D57.1 - SICKLE-CELL DISEASE WITHOUT CRISIS Status: Acute (2) COPD (chronic obstructive pulmonary disease) Status: Acute (3) HTN (hypertension) Code(s): I10 - ESSENTIAL (PRIMARY) HYPERTENSION Status: Acute (4) Heart failure with preserved ejection fraction Code(s): I50.30 - UNSPECIFIED DIASTOLIC (CONGESTIVE) HEART FAILURE Status: Acute (5) Hyperlipidemia Code(s): E78.5 - HYPERLIPIDEMIA, UNSPECIFIED Status: Acute (6) Thoracic aortic aneurysm Code(s): I71.2 - THORACIC AORTIC ANEURYSM, WITHOUT RUPTURE Status: Acute - Plan Daily Plan: PT/OT, speech therapy, DVT proph w/SCDs 55-year-old female with medical history significant for COPD and thoracic aortic aneurysm s/p TAVR in 2018 presented with expressive aphasia and right- sided hemiparesis. MRI of the brain was consistent with large vessel stroke in the left middle cerebral artery distribution. No acute complaints in the last 24 hours The patient continues to improve and case management is on board regarding discharge planning. She completed modified barium swallow and is tolerating nectar and pured diet well. MRI of the brain reviewed which was consistent with subacute infarction in the left middle cerebral artery distribution. EEG reviewed which was negative for seizure activity. 2D echo showed left ventricle ejection fraction 60 to 65%. Evidence of diastolic dysfunction. No thrombus or PFO. Carotid Dopplers to rule out hemodynamically significant stenosis are pending Continue telemetry to rule out arrhythmias. PT/OT. Continue aspirin and high intensity statin for secondary stroke prevention Strict control of blood pressure and blood glucose. Continue medical management per primary team. DVT prophylaxis. GI prophylaxis Plan discussed in detail with the nursing staff.
[2020-06-29] MEDS: Atorvastatin Calcium 40 MG TAB PO SCH (20:35)
--- NOTE | 2020-06-30 06:21 | PDOC.FM ---
- Subjective Subjective: Resting comfortably, no complaints - Objective Vital Signs & Weight: Vital Signs (12 hours) Temp Pulse Resp BP Pulse Ox 06/30/20 03:50 98.9 F 83 16 131/80 99 06/30/20 02:46 93 L 06/29/20 23:25 98.3 F 78 18 136/87 100 06/29/20 20:00 98.6 F 75 18 157/80 H 93 L Weight Admit Weight 106.367 kg Weight 106.367 kg I&O: 06/28/20 06/29/20 06/30/20 06:59 06:59 06:59 Intake Total 900 900 236 Balance 900 900 236 Result Diagrams: 06/28/20 07:11 06/28/20 07:11 EKG Reviewed by me: Yes (tele: SR 70s, PACs) Phys Exam - Physical Examination Constitutional: NAD HEENT: moist MMs, sclera anicteric Neck: full ROM Respiratory: no wheezing, clear to auscultation bilateral Cardiovascular: RRR, no significant murmur Gastrointestinal: soft, non-tender Musculoskeletal: no edema, pulses present right hemiparesis, expressive aphasia Psychiatric: normal affect cannot assess orientation due to aphasia Skin: no rash Dx/Plan - Plan Plan: 55 yo F with a history of COPD and thoracic aortic aneurysm s/p TAVR in 2018 pr esenting for L MCA infarct L MCA ischemic infarct Patient was found down at home and presented with expressive aphasia and R sided hemiparesis. Last seen by coworkers on Jun 13. Lipids, Mg, Phos wnl. TSH slightly low, but T3 and T4 normal. Neurosurgery consulted in ED. Dr. Singer, neurology, also consulted. - CT brain: evidence of L MCA infarct, 1.2 cm left external capsular parenchymal hematoma - MRI brain: subacute L MCA infarct distribution - Q4h neuro checks - Continue aspirin, statin - Continue POT/OT - Reevaluated by speech yesterday and approved to continue thick nectars and puree - CM assisting with placement as patient is uninsured. Many referrals have been sent out, awaiting approval. Patient's nephew, her MPOA, is also working to apply patient for disability. HFpEF - Repeat ECHO showed EF of 60-65% with evidence of diastolic dysfunction - CXR showed no evidence of fluid overload Swollen Right UE, resolved - Venous doppler negative for DVT, showed subq edema Medical Decision Maker - Contacted patient's nephew, Geoffrey Jauregui, who he states is all the family patient has left. - Palliative consult placed - Geoffrey acting as MPOA Escar of right foot Hx right toe amputations - Wound care consult - R foot Xray: inflammation and possible infection - Surgery consult (Aguilera): no surgical intervention at this time. Will see patient again on 06/26 or outpatient in 2wk if d/c earlier NSTEMI type II - likely related to hypovalemia - trop 0.05, 0.04, 0.05 - EKG: sinus rhythm COPD - Per partner, patient uses inhalers at home Hx thoracic aortic aneurysm s/p TAVR 2018 - [place] [address] Dooley - unaware if patient has had any subsequent follow-up HTN - Does not take medications at home - Has been wnl here. Will continue to monitor. DVT: SCDs Code: FULL Diet: thick nectar, puree PCP: SHREE Posada Dispo: Continue work with PT/OT. RAFAEL, nephleon, is working on starting disability application which will be helpful in getting approval for placement. Ready for discharge pending placement. Addendum - Attending - Attending Attestation Date/Time: 06/30/20 [id number] I personally evaluated the patient and discussed the management with Dr. Krishna. I agree with the History, Examination, Assessment and Plan documented above with any addition or exceptions noted below. Stable. Continue current mgmt. Awaiting placement and funding.
[2020-06-30] MEDS: Aspirin 325 MG TAB PO SCH (10:03)
--- NOTE | 2020-06-30 16:15 | PDOC.NEUPN ---
- Subjective Encounter Date: 06/30/20 Subjective: No acute complaints in the last 24 hours - Objective Vital Signs & Weight: Vital Signs (12 hours) Temp Pulse Resp BP Pulse Ox 06/30/20 15:25 98 F 66 18 102/61 99 06/30/20 11:56 98.4 F 83 16 118/63 95 06/30/20 09:40 100/59 L 06/30/20 07:47 97.5 F L 71 18 84/50 L 100 Weight Admit Weight 234 lb 8 oz Weight 234 lb 8 oz I&O: 06/29/20 06/30/20 07/01/20 06:59 06:59 06:59 Intake Total 900 236 726 Balance 900 236 726 Result Diagrams: 06/28/20 07:11 06/28/20 07:11 Radiology Reviewed by me: Yes EKG Reviewed by me: Yes ROS - Review of Systems ROS unobtainable: due to mental status (Aphasic) - Medication Medications: Active Medications Generic Name Dose Route Start Last Admin Trade Name Freq PRN Reason Stop Dose Admin Aspirin 325 mg 06/21/20 09:00 06/30/20 10:03 Aspirin 325 Mg Tab PO 325 mg DAILY DEMETRI Administration Atorvastatin Calcium 40 mg 06/21/20 21:00 06/29/20 20:35 Atorvastatin Calcium 40 Mg Tab PO 40 mg HS DEMETRI Administration Polyethylene Glycol 17 gm 06/23/20 10:55 06/24/20 16:43 Polyethylene Glycol 3350 17 Gm Packet PO 17 gm DAILYPRN PRN Administration Constipation Sodium Chloride 10 ml 06/18/20 14:33 06/22/20 21:44 Flush - Normal Saline 10 Ml Syringe IVF 10 ml PRN PRN Administration Saline Flush - Exam General Appearance: awake alert Eye: PERRL ENT: normocephalic atraumatic Neck: supple Respiratory: CTAB Cardiovascular: RRR Gastrointestinal: soft Extremities: no cyanosis Skin: normal turgor Neurological: no new deficit, facial droop, hemiplegia, speech deficit Neurological - other findings: Right-sided deficits Musculoskeletal: normal tone, no muscle wasting PSYCH: normal affect, normal behavior, not oriented (Aphasic) Results - Labs Result Diagrams: 06/28/20 07:11 06/28/20 07:11 Lab results: WBC 9.4 thou/uL (4.8-10.8) 06/28/20 07:11 Hgb 16.4 g/dL (12.0-16.0) H 06/28/20 07:11 Hct 55.2 % (36.0-47.0) H 06/28/20 07:11 MCV 93.2 fL (78.0-98.0) 06/28/20 07:11 Plt Count 301 thou/uL (130-400) 06/28/20 07:11 Neutrophils % 62.5 % (42.0-75.0) 06/28/20 07:11 Sodium 143 mmol/L (136-145) 06/28/20 07:11 Potassium 4.2 mmol/L (3.5-5.1) 06/28/20 07:11 Chloride 102 mmol/L (98-107) 06/28/20 07:11 Carbon Dioxide 35 mmol/L (22-29) H 06/28/20 07:11 BUN 11 mg/dL (9.8-20.1) 06/28/20 07:11 Creatinine 0.61 mg/dL (0.6-1.1) 06/28/20 07:11 Glucose 96 mg/dL (70-105) 06/28/20 07:11 Lactic Acid 1.6 mmol/L (0.5-2.2) 06/18/20 16:41 Calcium 9.0 mg/dL (7.8-10.44) 06/28/20 07:11 Total Bilirubin 1.2 mg/dL (0.2-1.2) 06/18/20 12:49 AST 46 U/L (5-34) H 06/18/20 12:49 ALT 23 U/L (8-55) 06/18/20 12:49 Alkaline Phosphatase 79 U/L (40-110) 06/18/20 12:49 Creatine Kinase 242 U/L (29-168) H 06/20/20 06:33 CK-MB (CK-2) 11.6 ng/mL (0-6.6) H* 06/18/20 12:49 Troponin I 0.053 ng/mL (< 0.028) H 06/18/20 20:21 C-Reactive Protein 4.87 mg/dL (= or < 0.5) H 06/21/20 04:40 Serum Total Protein 6.6 g/dL (6.0-8.3) 06/18/20 12:49 Albumin 3.6 g/dL (3.5-5.0) 06/18/20 12:49 Urine Ketones 40 mg/dL (Negative) A 06/20/20 09:04 Urine Blood Large (Negative) A 06/20/20 09:04 Urine Nitrite Negative (Negative) 06/20/20 09:04 Ur Leukocyte Esterase Trace (Negative) H 06/20/20 09:04 Urine RBC Greater than 50 HPF (0-3) A 06/20/20 09:04 Urine WBC 7-10 HPF (0-3) A 06/20/20 09:04 Ur Squamous Epith Cells 0-3 HPF (0-3) 06/20/20 09:04 Urine Bacteria Rare-Few HPF (None Seen) 06/20/20 09:04 - Radiology Interpretation MRI - head Additional Comment: MRI of the brain was positive for acute left middle cerebral artery stroke PN A/P (1) Acute CVA (cerebrovascular accident) due to Hgb-S disease Code(s): I63.9 - CEREBRAL INFARCTION, UNSPECIFIED; D57.1 - SICKLE-CELL DISEASE WITHOUT CRISIS Status: Acute (2) COPD (chronic obstructive pulmonary disease) Status: Acute (3) HTN (hypertension) Code(s): I10 - ESSENTIAL (PRIMARY) HYPERTENSION Status: Acute (4) Heart failure with preserved ejection fraction Code(s): I50.30 - UNSPECIFIED DIASTOLIC (CONGESTIVE) HEART FAILURE Status: Acute (5) Hyperlipidemia Code(s): E78.5 - HYPERLIPIDEMIA, UNSPECIFIED Status: Acute (6) Thoracic aortic aneurysm Code(s): I71.2 - THORACIC AORTIC ANEURYSM, WITHOUT RUPTURE Status: Acute - Plan Daily Plan: PT/OT, speech therapy 55-year-old female with medical history significant for COPD and thoracic aortic aneurysm s/p TAVR in 2018 presented with expressive aphasia and right- sided hemiparesis. No acute complaints in the last 24 hours reported by the nursing staff. The patient continues to improve and has been participating with physical and speech therapy. She completed modified barium swallow and is tolerating nectar and pured diet well. MRI of the brain reviewed which was consistent with subacute infarction in the left middle cerebral artery distribution. EEG reviewed which was negative for seizure activity. 2D echo showed left ventricle ejection fraction 60 to 65%. Evidence of diastolic dysfunction. No thrombus or PFO. Carotid Dopplers to rule out hemodynamically significant stenosis are pending Continue telemetry to rule out arrhythmias. PT/OT. Continue aspirin and high intensity statin for secondary stroke prevention Strict control of blood pressure and blood glucose. Continue medical management per primary team. DVT prophylaxis. GI prophylaxis Plan discussed in detail with the nursing staff.
[2020-06-30] MEDS: Atorvastatin Calcium 40 MG TAB PO SCH (22:10)
--- NOTE | 2020-07-01 06:27 | PDOC.FM ---
- Subjective Subjective: Ms. Jauregui was resting in bed watching tv. I asked her to show me how to use the incentive spirometer and she was unsuccessful in moving the marker. She denies any problems or complaints. - Objective Vital Signs & Weight: Vital Signs (12 hours) Temp Pulse Resp BP Pulse Ox 07/01/20 04:00 97.7 F 74 20 124/69 96 07/01/20 00:10 130/78 07/01/20 00:00 83 16 144/83 H 93 L 06/30/20 20:00 98.5 F 65 18 134/79 95 Weight Admit Weight 106.367 kg Weight 106.367 kg I&O: 06/29/20 06/30/20 07/01/20 06:59 06:59 06:59 Intake Total 737 103 2274 Balance 605 394 0672 Result Diagrams: 06/28/20 07:11 06/28/20 07:11 EKG Reviewed by me: Yes (tele: SR 70s) Phys Exam - Physical Examination Constitutional: NAD HEENT: moist MMs, sclera anicteric Neck: no JVD Respiratory: no wheezing, clear to auscultation bilateral Cardiovascular: RRR, no significant murmur Gastrointestinal: soft, non-tender Musculoskeletal: no edema, pulses present right hemiparesis, RUE strength improved. expressive aphasia Skin: no rash Dx/Plan - Plan Plan: 55 yo F with a history of COPD and thoracic aortic aneurysm s/p TAVR in 2018 presenting for L MCA infarct L MCA ischemic infarct Patient was found down at home and presented with expressive aphasia and R sided hemiparesis. Last seen by coworkers on Jun 13. Lipids, Mg, Phos wnl. TSH slightly low, but T3 and T4 normal. Neurosurgery consulted in ED. Dr. Singer, neurology, also consulted. - CT brain: evidence of L MCA infarct, 1.2 cm left external capsular parenchymal hematoma - MRI brain: subacute L MCA infarct distribution - Q4h neuro checks - Continue aspirin, statin - Continue POT/OT - Reevaluated by speech yesterday and approved to continue thick nectars and puree - CM assisting with placement as patient is uninsured. Many referrals have been sent out, awaiting approval. Patient's nephew, her MPOA, is also working to apply patient for disability. HFpEF - Repeat ECHO showed EF of 60-65% with evidence of diastolic dysfunction - CXR showed no evidence of fluid overload Swollen Right UE, resolved - Venous doppler negative for DVT, showed subq edema Medical Decision Maker - Contacted patient's nephew, Geoffrey Jauregui, who he states is all the family patient has left. - Palliative consult placed - Geoffrey acting as MPOA Escar of right foot Hx right toe amputations - Wound care consult - R foot Xray: inflammation and possible infection - Surgery consult (Aguilera): no surgical intervention at this time. Will see patient again on 06/26 or outpatient in 2wk if d/c earlier NSTEMI type II - likely related to hypovalemia - trop 0.05, 0.04, 0.05 - EKG: sinus rhythm COPD - Per partner, patient uses inhalers at home Hx thoracic aortic aneurysm s/p TAVR 2018 - [place] [address] Dooley - unaware if patient has had any subsequent follow-up HTN - Does not take medications at home - Has been wnl here. Will continue to monitor. DVT: SCDs Code: FULL Diet: thick nectar, puree PCP: SHREE Posada Dispo: Continue work with PT/OT. Patient is showing improvement in RUE strength. RAFAEL, maneleon, is working on starting disability application which will be h elpful in getting approval for placement. Ready for discharge pending placement. Addendum - Attending - Attending Attestation Date/Time: 07/01/20 1818 I personally evaluated the patient and discussed the management with Dr. Krishna. I agree with the History, Examination, Assessment and Plan documented above with any addition or exceptions noted below. Patient has been stable for discharge for several days. We have prolonged hospitalization due to lack of funding and need for custodial placement as she is not safe to return home in her current condition. CM on board and working with family to arrange for disability application to be filed.
[2020-07-01] MEDS ORDERED: Diabetic Tussin 200 MG/10 ML UDCUP PO PRN (07:21)
[2020-07-01] MEDS: Aspirin 325 MG TAB PO SCH (09:47)
[2020-07-01] MEDS: Atorvastatin Calcium 40 MG TAB PO SCH (20:49)
--- NOTE | 2020-07-02 05:46 | PDOC.FM ---
- Subjective Subjective: Mrs. Jauregui denies any complaints this morning. It is difficult to discern information from her given her dysarthria. She declined the option of attempting to write her thoughts instead. She has poor respiratory effort and makes minimal movement on IS. - Objective Vital Signs & Weight: Vital Signs (12 hours) Temp Pulse Resp BP Pulse Ox 07/02/20 03:57 98.4 F 80 20 101/63 94 L 07/01/20 23:21 98.4 F 67 20 90/60 98 07/01/20 19:42 98.0 F 70 20 93/61 92 L Weight Admit Weight 106.367 kg Weight 106.367 kg I&O: 06/30/20 07/01/20 07/02/20 06:59 06:59 06:59 Intake Total 236 1408 1090 Balance 236 1408 1090 Result Diagrams: 06/28/20 07:11 06/28/20 07:11 Phys Exam - Physical Examination Constitutional: NAD Neck: supple Poor resp effort. Crackles b/l Cardiovascular: RRR, no significant murmur Musculoskeletal: no edema, pulses present R UE limited mobility Skin: no rash Dx/Plan - Plan Plan: 55 yo F with a history of COPD and thoracic aortic aneurysm s/p TAVR in 2018 presenting for L MCA infarct L MCA ischemic infarct - Expressive aphasia and R sided hemiparesis. - CT brain and MRI show L MCA infarct c/w sxs - Dr. Singer, neurology, following. Appreciate recs - Q4h neuro checks - Continue aspirin, statin - Continue PT/OT - SLT eval approved thick nectars and jacksone - CM assisting with placement as patient is uninsured. Many referrals have been sent out, awaiting approval. Patient's nephew, her MPOA, is also working to apply patient for disability. Medical Decision Maker - Contacted patient's nephew, Geoffrey Jauregui, who he states is all the family patient has left. - Palliative consult placed - Geoffrey acting as MPOA HFpEF - Repeat ECHO showed EF of 60-65% with evidence of diastolic dysfunction - CXR showed no evidence of fluid overload Swollen Right UE, resolved - Venous doppler negative for DVT, showed subq edema Eschar of right foot Hx right toe amputations - Wound care consult - R foot Xray: inflammation and possible infection - Surgery consult (Aguilera): no surgical intervention at this time NSTEMI type II - likely related to hypovolemia - trop 0.05, 0.04, 0.05 - EKG: sinus rhythm COPD - Per partner, patient uses inhalers at home Hx thoracic aortic aneurysm s/p TAVR 2018 - Repaired [place] [address] Dooley - unaware if patient has had any subsequent follow-up HTN - Neuro desire strict BP control - Does not take medications at home - Has been wnl here. Will continue to monitor. DVT: SCDs Code: FULL Diet: thick nectar puree PCP: SHREE Posada Dispo: Continue work with PT/OT. Encourage use of IS. Patient is showing improvement in RUE strength. ruth HALL, is working on disability application which will be helpful in getting approval for placement. Ready for discharge pending placement.
[2020-07-02] MEDS: Aspirin 325 MG TAB PO SCH (08:22)
--- NOTE | 2020-07-02 12:44 | PDOC.NEUPN ---
- Subjective Encounter Date: 07/02/20 Subjective: Ms. Jauregui looks much better today. She was sitting up at the side of the bed and is oriented to her name and was able to answer appropriately yes and no questions. - Objective Vital Signs & Weight: Vital Signs (12 hours) Temp Pulse Pulse Resp BP BP Pulse Ox 07/02/20 12:00 97.7 F 70 16 108/64 94 L 07/02/20 09:11 71 97/57 L 07/02/20 07:40 98.2 F 89 18 90/59 L 95 07/02/20 03:57 98.4 F 80 20 101/63 94 L Weight Admit Weight 234 lb 8 oz Weight 234 lb 8 oz I&O: 07/01/20 07/02/20 07/03/20 06:59 06:59 06:59 Intake Total 1408 1690 118 Balance 1408 1690 118 Result Diagrams: 06/28/20 07:11 06/28/20 07:11 Radiology Reviewed by me: Yes EKG Reviewed by me: Yes ROS - Review of Systems ROS unobtainable: due to mental status - Medication Medications: Active Medications Generic Name Dose Route Start Last Admin Trade Name Freq PRN Reason Stop Dose Admin Aspirin 325 mg 06/21/20 09:00 07/02/20 08:22 Aspirin 325 Mg Tab PO 325 mg DAILY DEMETRI Administration Atorvastatin Calcium 40 mg 06/21/20 21:00 07/01/20 20:49 Atorvastatin Calcium 40 Mg Tab PO 40 mg HS DEMETRI Administration Guaifenesin 100 mg 07/01/20 07:21 07/01/20 09:47 Diabetic Tussin 200 Mg/10 Ml Udcup PO 100 mg Q4H PRN Administration Cough Polyethylene Glycol 17 gm 06/23/20 10:55 06/24/20 16:43 Polyethylene Glycol 3350 17 Gm Packet PO 17 gm DAILYPRN PRN Administration Constipation Sodium Chloride 10 ml 06/18/20 14:33 06/22/20 21:44 Flush - Normal Saline 10 Ml Syringe IVF 10 ml PRN PRN Administration Saline Flush - Exam General Appearance: awake alert Eye: PERRL ENT: normocephalic atraumatic Neck: supple Respiratory: CTAB Cardiovascular: RRR Gastrointestinal: soft Extremities: no cyanosis Skin: normal turgor Neurological: no new deficit, facial droop, hemiplegia, speech deficit Musculoskeletal: normal tone, no muscle wasting PSYCH: normal affect, normal behavior, oriented to person Results - Labs Result Diagrams: 06/28/20 07:11 06/28/20 07:11 Lab results: WBC 9.4 thou/uL (4.8-10.8) 06/28/20 07:11 Hgb 16.4 g/dL (12.0-16.0) H 06/28/20 07:11 Hct 55.2 % (36.0-47.0) H 06/28/20 07:11 MCV 93.2 fL (78.0-98.0) 06/28/20 07:11 Plt Count 301 thou/uL (130-400) 06/28/20 07:11 Neutrophils % 62.5 % (42.0-75.0) 06/28/20 07:11 Sodium 143 mmol/L (136-145) 06/28/20 07:11 Potassium 4.2 mmol/L (3.5-5.1) 06/28/20 07:11 Chloride 102 mmol/L (98-107) 06/28/20 07:11 Carbon Dioxide 35 mmol/L (22-29) H 06/28/20 07:11 BUN 11 mg/dL (9.8-20.1) 06/28/20 07:11 Creatinine 0.61 mg/dL (0.6-1.1) 06/28/20 07:11 Glucose 96 mg/dL (70-105) 06/28/20 07:11 Lactic Acid 1.6 mmol/L (0.5-2.2) 06/18/20 16:41 Calcium 9.0 mg/dL (7.8-10.44) 06/28/20 07:11 Total Bilirubin 1.2 mg/dL (0.2-1.2) 06/18/20 12:49 AST 46 U/L (5-34) H 06/18/20 12:49 ALT 23 U/L (8-55) 06/18/20 12:49 Alkaline Phosphatase 79 U/L (40-110) 06/18/20 12:49 Creatine Kinase 242 U/L (29-168) H 06/20/20 06:33 CK-MB (CK-2) 11.6 ng/mL (0-6.6) H* 06/18/20 12:49 Troponin I 0.053 ng/mL (< 0.028) H 06/18/20 20:21 C-Reactive Protein 4.87 mg/dL (= or < 0.5) H 06/21/20 04:40 Serum Total Protein 6.6 g/dL (6.0-8.3) 06/18/20 12:49 Albumin 3.6 g/dL (3.5-5.0) 06/18/20 12:49 Urine Ketones 40 mg/dL (Negative) A 06/20/20 09:04 Urine Blood Large (Negative) A 06/20/20 09:04 Urine Nitrite Negative (Negative) 06/20/20 09:04 Ur Leukocyte Esterase Trace (Negative) H 06/20/20 09:04 Urine RBC Greater than 50 HPF (0-3) A 06/20/20 09:04 Urine WBC 7-10 HPF (0-3) A 06/20/20 09:04 Ur Squamous Epith Cells 0-3 HPF (0-3) 06/20/20 09:04 Urine Bacteria Rare-Few HPF (None Seen) 06/20/20 09:04 - Radiology Interpretation MRI - head Additional Comment: MRI of the brain was consistent with acute infarction in the left middle cerebral artery distribution PN A/P (1) Acute CVA (cerebrovascular accident) due to Hgb-S disease Code(s): I63.9 - CEREBRAL INFARCTION, UNSPECIFIED; D57.1 - SICKLE-CELL DISEASE WITHOUT CRISIS Status: Acute (2) COPD (chronic obstructive pulmonary disease) Status: Acute (3) HTN (hypertension) Code(s): I10 - ESSENTIAL (PRIMARY) HYPERTENSION Status: Acute (4) Heart failure with preserved ejection fraction Code(s): I50.30 - UNSPECIFIED DIASTOLIC (CONGESTIVE) HEART FAILURE Status: Acute (5) Hyperlipidemia Code(s): E78.5 - HYPERLIPIDEMIA, UNSPECIFIED Status: Acute (6) Thoracic aortic aneurysm Code(s): I71.2 - THORACIC AORTIC ANEURYSM, WITHOUT RUPTURE Status: Acute - Plan Daily Plan: PT/OT, speech therapy, DVT proph w/SCDs 55-year-old female with medical history significant for COPD and thoracic aortic aneurysm s/p TAVR in 2018 presented with expressive aphasia and right- sided hemiparesis. Patient doing much better and no acute complaints in the last 24 hours. She continues to improve and has been participating with physical and speech therapy. Modified barium swallow completed and she is tolerating nectar and pured diet well. MRI of the brain reviewed which was consistent with subacute infarction in the left middle cerebral artery distribution. EEG reviewed which was negative for seizure activity. 2D echo showed left ventricle ejection fraction 60 to 65%. Evidence of di astolic dysfunction. No thrombus or PFO. Carotid Dopplers to rule out hemodynamically significant stenosis are pending Continue telemetry to rule out arrhythmias. Continue PT/OT. Continue aspirin and high intensity statin for secondary stroke prevention Strict control of blood pressure and blood glucose. Continue medical management per primary team. Case management on board regarding discharge planning DVT prophylaxis. GI prophylaxis Plan discussed in detail with the nursing staff.
--- NOTE | 2020-07-02 13:44 | PRG ---
DATE OF SERVICE: 07/02/2020 Ms. Jauregui is a 55-year-old lady, who presented with a left MCA stroke. She presented well beyond the time frame for tPA. She is clinically stable. She has numerous comorbidities including hypertension, COPD, and a history of a descending aortic aneurysm. Given that she did have a stroke, we have started her on aspirin and atorvastatin 40 mg a day. We have Case Management involved on discharge planning. She has also been evaluated by Dr. Singer of the Neurology Service and we appreciate his input. Job ID: [id number]
[2020-07-02] MEDS: Mometasone 200 MCG/Formoterol 5 MCG 120 PUFF INHALER INH SCH (20:05)
[2020-07-02] MEDS: Atorvastatin Calcium 40 MG TAB PO SCH (23:36)
--- NOTE | 2020-07-03 05:23 | PDOC.FM ---
- Subjective Subjective: Mrs. Jauregui was very sleepy this morning so she did not answer many questions but said she had a good night. - Objective Vital Signs & Weight: Vital Signs (12 hours) Temp Pulse Resp BP Pulse Ox 07/03/20 04:00 98 F 80 18 105/70 98 07/03/20 00:00 98.1 F 62 20 102/67 95 07/02/20 20:09 95 07/02/20 20:05 96 07/02/20 20:00 97.4 F L 68 18 113/67 95 Weight Admit Weight 106.367 kg Weight 106.367 kg I&O: 07/01/20 07/02/20 07/03/20 06:59 06:59 06:59 Intake Total 1408 1690 890 Balance 1408 1690 890 Result Diagrams: 06/28/20 07:11 06/28/20 07:11 Phys Exam - Physical Examination Constitutional: NAD (Sleeping comfortably, easily arousable but falls back to sleep quickly) Neck: supple Respiratory: clear to auscultation bilateral (poor respiratory effort) Cardiovascular: RRR, no significant murmur Musculoskeletal: no edema, pulses present Neurological: moves all 4 limbs Skin: no rash Dx/Plan - Plan Plan: 55 yo F with a history of COPD and thoracic aortic aneurysm s/p TAVR in 2018 presenting for L MCA infarct L MCA ischemic infarct - Expressive aphasia and R sided hemiparesis. - CT brain and MRI show L MCA infarct c/w sxs - Dr. Singer, neurology, following. Appreciate recs - Q4h neuro checks - Continue aspirin, statin - Continue PT/OT/PREPARED FOODS SUPERVISOR - SLT eval approved thick jose and morgan - CM assisting with placement as patient is uninsured. Many referrals have been sent out, awaiting approval. Patient's nephew, her MPOA, is also working to apply patient for disability. Medical Decision Maker - Contacted patient's nephew, Geoffrey Jauregui, who he states is all the family patient has left. - Palliative consult placed - Geoffrey acting as MPOA HFpEF - Repeat ECHO showed EF of 60-65% with evidence of diastolic dysfunction - CXR showed no evidence of fluid overload Eschar of right foot Hx right toe amputations - Wound care consult - R foot Xray: inflammation and possible infection - Surgery consult (Aguilera): no surgical intervention at this time NSTEMI type II - likely related to hypovolemia - trop 0.05, 0.04, 0.05 - EKG: sinus rhythm COPD - Per partner, patient uses inhalers at home Hx thoracic aortic aneurysm s/p TAVR 2018 - Rep[place] [address] Dooley - unaware if patient has had any subsequent follow-up HTN - Neuro desire strict BP control - Does not take medications at home - Has been wnl here. Will continue to monitor. Swollen Right UE, resolved - Venous doppler negative for DVT, showed subq edema DVT: SCDs Code: FULL Diet: thick nectar, puree PCP: SHREE Posada Dispo: Continue work with PT/OT. Encourage use of IS. Patient is showing improvement in RUE strength. ruth HALL, is working on disability application which will be helpful in getting approval for placement. Ready for discharge pending placement.
[2020-07-03] MEDS: Mometasone 200 MCG/Formoterol 5 MCG 120 PUFF INHALER INH SCH ×2 (07:16→19:20)
[2020-07-03] MEDS: Aspirin 325 MG TAB PO SCH (08:19)
[2020-07-03 09:51] LABS: Actual Bicarbonate (HCO3a) 32.9 mEq/L (22-28); Base Excess (BEa) 5.3 mEq/L (-2.0 to +3.0); Calcium, Ionized (arterial) 1.25 mmol/L (1.12-1.30); Carboxyhemoglobin (COHb) 1.1 gm% (0.0-3.0); Potassium - ABG Lab 4.29 mmol/L (3.70-5.30); pH, Arterial 7.37 (7.35-7.45)
[2020-07-03 09:53] LABS: O2 Tension (PaO2), arterial 57.1 mmHg (80.0-100.0); Puncture Site RRA
--- NOTE | 2020-07-03 12:54 | PDOC.NEUPN ---
- Subjective Encounter Date: 07/03/20 Subjective: Ms. Jauregui is alert awake and participating with physical therapy. - Objective Vital Signs & Weight: Vital Signs (12 hours) Temp Pulse Pulse Resp BP BP Pulse Ox 07/03/20 11:24 68 97/55 L 07/03/20 11:23 98.3 F 66 16 91/57 L 94 L 07/03/20 07:28 98.3 F 75 16 93/57 L 94 L 07/03/20 07:16 88 14 92 L 07/03/20 04:00 98 F 80 18 105/70 98 Weight Admit Weight 234 lb 8 oz Weight 234 lb 8 oz I&O: 07/02/20 07/03/20 07/04/20 06:59 06:59 06:59 Intake Total 1690 890 Balance 1690 890 Result Diagrams: 06/28/20 07:11 06/28/20 07:11 Radiology Reviewed by me: Yes EKG Reviewed by me: Yes ROS - Review of Systems ROS unobtainable: due to mental status (Aphasic) - Medication Medications: Active Medications Generic Name Dose Route Start Last Admin Trade Name Freq PRN Reason Stop Dose Admin Aspirin 325 mg 06/21/20 09:00 07/03/20 08:19 Aspirin 325 Mg Tab PO 325 mg DAILY DEMETRI Administration Atorvastatin Calcium 40 mg 06/21/20 21:00 07/02/20 23:36 Atorvastatin Calcium 40 Mg Tab PO 40 mg HS DEMETRI Administration Guaifenesin 100 mg 07/01/20 07:21 07/01/20 09:47 Diabetic Tussin 200 Mg/10 Ml Udcup PO 100 mg Q4H PRN Administration Cough Mometasone Furoate/Formoterol Fumar 2 puff 07/02/20 18:30 07/03/20 07:16 Mometasone 200 Mcg/Formoterol 5 Mcg 120 Puff Inhaler INH 2 puff BID-RT DEMETRI Administration Polyethylene Glycol 17 gm 06/23/20 10:55 06/24/20 16:43 Polyethylene Glycol 3350 17 Gm Packet PO 17 gm DAILYPRN PRN Administration Constipation Sodium Chloride 10 ml 06/18/20 14:33 06/22/20 21:44 Flush - Normal Saline 10 Ml Syringe IVF 10 ml PRN PRN Administration Saline Flush - Exam General Appearance: awake alert Eye: PERRL ENT: normocephalic atraumatic Neck: supple Respiratory: CTAB Cardiovascular: RRR Gastrointestinal: soft Extremities: no cyanosis Skin: normal turgor Neurological: facial droop, hemiplegia, speech deficit Musculoskeletal: normal tone, no muscle wasting PSYCH: normal affect, normal behavior, not oriented (Aphasic) Results - Labs Result Diagrams: 06/28/20 07:11 06/28/20 07:11 Lab results: WBC 9.4 thou/uL (4.8-10.8) 06/28/20 07:11 Hgb 16.4 g/dL (12.0-16.0) H 06/28/20 07:11 Hct 55.2 % (36.0-47.0) H 06/28/20 07:11 MCV 93.2 fL (78.0-98.0) 06/28/20 07:11 Plt Count 301 thou/uL (130-400) 06/28/20 07:11 Neutrophils % 62.5 % (42.0-75.0) 06/28/20 07:11 ABG pH 7.37 (7.35-7.45) 07/03/20 09:45 ABG pCO2 58.0 mmHg (35.0-45.0) H 07/03/20 09:45 ABG pO2 57.1 mmHg (80.0-100.0) L* 07/03/20 09:45 Sodium 143 mmol/L (136-145) 06/28/20 07:11 Potassium 4.2 mmol/L (3.5-5.1) 06/28/20 07:11 Chloride 102 mmol/L (98-107) 06/28/20 07:11 Carbon Dioxide 35 mmol/L (22-29) H 06/28/20 07:11 BUN 11 mg/dL (9.8-20.1) 06/28/20 07:11 Creatinine 0.61 mg/dL (0.6-1.1) 06/28/20 07:11 Glucose 96 mg/dL (70-105) 06/28/20 07:11 Lactic Acid 1.6 mmol/L (0.5-2.2) 06/18/20 16:41 Calcium 9.0 mg/dL (7.8-10.44) 06/28/20 07:11 Total Bilirubin 1.2 mg/dL (0.2-1.2) 06/18/20 12:49 AST 46 U/L (5-34) H 06/18/20 12:49 ALT 23 U/L (8-55) 06/18/20 12:49 Alkaline Phosphatase 79 U/L (40-110) 06/18/20 12:49 Creatine Kinase 242 U/L (29-168) H 06/20/20 06:33 CK-MB (CK-2) 11.6 ng/mL (0-6.6) H* 06/18/20 12:49 Troponin I 0.053 ng/mL (< 0.028) H 06/18/20 20:21 C-Reactive Protein 4.87 mg/dL (= or < 0.5) H 06/21/20 04:40 Serum Total Protein 6.6 g/dL (6.0-8.3) 06/18/20 12:49 Albumin 3.6 g/dL (3.5-5.0) 06/18/20 12:49 Urine Ketones 40 mg/dL (Negative) A 06/20/20 09:04 Urine Blood Large (Negative) A 06/20/20 09:04 Urine Nitrite Negative (Negative) 06/20/20 09:04 Ur Leukocyte Esterase Trace (Negative) H 06/20/20 09:04 Urine RBC Greater than 50 HPF (0-3) A 06/20/20 09:04 Urine WBC 7-10 HPF (0-3) A 06/20/20 09:04 Ur Squamous Epith Cells 0-3 HPF (0-3) 06/20/20 09:04 Urine Bacteria Rare-Few HPF (None Seen) 06/20/20 09:04 - Radiology Interpretation MRI - head Additional Comment: MRI of the brain was consistent with acute intracranial pathology left middle cerebral artery stroke on initial presentation PN A/P (1) Acute CVA (cerebrovascular accident) due to Hgb-S disease Code(s): I63.9 - CEREBRAL INFARCTION, UNSPECIFIED; D57.1 - SICKLE-CELL DISEASE WITHOUT CRISIS Status: Acute (2) COPD (chronic obstructive pulmonary disease) Status: Acute (3) HTN (hypertension) Code(s): I10 - ESSENTIAL (PRIMARY) HYPERTENSION Status: Acute (4) Heart failure with preserved ejection fraction Code(s): I50.30 - UNSPECIFIED DIASTOLIC (CONGESTIVE) HEART FAILURE Status: Acute (5) Hyperlipidemia Code(s): E78.5 - HYPERLIPIDEMIA, UNSPECIFIED Status: Acute (6) Thoracic aortic aneurysm Code(s): I71.2 - THORACIC AORTIC ANEURYSM, WITHOUT RUPTURE Status: Acute - Plan Daily Plan: PT/OT, speech therapy, DVT proph w/SCDs 55-year-old female with medical history significant for COPD and thoracic aortic aneurysm s/p TAVR in 2018 presented with expressive aphasia and right- sided hemiparesis. Patient doing much better and has been participating with physical and speech therapy. Modified barium swallow completed and she is tolerating nectar and pured diet well. Continue neurochecks every 4 hours MRI of the brain reviewed which was consistent with subacute infarction in the left middle cerebral artery distribution. EEG reviewed which was negative for seizure activity. 2D echo showed left ventricle ejection fraction 60 to 65%. Evidence of diastolic dysfunction. No thrombus or PFO. Carotid Dopplers to rule out hemodynamically significant stenosis are pending Continue telemetry to rule out arrhythmias. Continue PT/OT. Continue aspirin and high intensity statin for secondary stroke prevention Strict control of blood pressure and blood glucose. Continue medical management per primary team. DVT prophylaxis. GI prophylaxis Case management on board regarding discharge planning. Awaiting discharge pending authorization Plan discussed in detail with the nursing staff.
--- NOTE | 2020-07-03 13:35 | PRG ---
DATE OF SERVICE: 07/03/2020 I have discussed the case with Dr. Forman and agree with her assessment and plan. This morning, Ms. Jauregui is resting comfortably in bed, in no acute distress. We obtained a blood gas on her early this morning, which unfortunately was done on 2 L. However, even on 2 L, her PO2 was only 57.1, her pCO2 was 58 with a pH of 7.37, demonstrating a compensated respiratory acidosis. She is a candidate for 24/7 home O2 given the fact that she likely has significant pulmonary hypertension and hypoxemia. These will undoubtedly contribute into her risk factors for stroke. Job ID: [id number]
[2020-07-03] MEDS: Atorvastatin Calcium 40 MG TAB PO SCH (20:52)
--- NOTE | 2020-07-04 05:36 | PDOC.FM ---
- Subjective Subjective: Ms. Jauregui is doing well this morning and was sleeping with her CPAP on. She denies any complaints. - Objective Vital Signs & Weight: Vital Signs (12 hours) Temp Pulse Resp BP Pulse Ox 07/04/20 00:00 98.4 F 58 L 20 90/65 97 07/03/20 20:00 98.0 F 77 16 90/60 95 07/03/20 19:20 80 16 93 L Weight Admit Weight 106.367 kg Weight 106.367 kg I&O: 07/02/20 07/03/20 07/04/20 06:59 06:59 06:59 Intake Total 1690 890 500 Balance 1690 890 500 Result Diagrams: 06/28/20 07:11 06/28/20 07:11 Phys Exam - Physical Examination Constitutional: NAD Neck: supple Neurological: moves all 4 limbs R hemiparesis Psychiatric: normal affect Skin: no rash Dx/Plan - Plan Plan: 55 yo F with a history of COPD and thoracic aortic aneurysm s/p TAVR in 2018 presenting for L MCA infarct L MCA ischemic infarct - Expressive aphasia and R sided hemiparesis. - CT brain and MRI show L MCA infarct c/w sxs - Dr. Singer, neurology, following. Appreciate recs - Neurosurgery, [place], will f/u in 8-12 wks - Q4h neuro checks - Continue aspirin, statin - Continue PT/OT/WORKERS COMPENSATION CLAIMS ASSISTANT - CM assisting with placement as patient is uninsured. Patient's nephew, her MPOA, is applying patient for disability. Medical Decision Maker - Contacted patient's nephew, Geoffrey Jauregui, who he states is all the family patient has left. - Palliative consult placed - Geoffrey acting as MPOA HFpEF - Repeat ECHO showed EF of 60-65% with evidence of diastolic dysfunction - CXR showed no evidence of fluid overload Eschar of right foot Hx right toe amputations - Wound care consult - R foot Xray: inflammation and possible infection - Surgery consult (Aguilera): no surgical intervention at this time NSTEMI type II - likely related to hypovolemia - trop 0.05, 0.04, 0.05 - EKG: sinus rhythm - On tele COPD - Per partner, patient uses inhalers at home - ABG showed pO2 of 57mmHg + pancytopenia means pt should be on O2 at all times * Will attempt to get her O2 Hx thoracic aortic aneurysm s/p TAVR 2018 - Repaired [place] [address] Dooley - unaware if patient has had any subsequent follow-up HTN - Neuro desire strict BP control - Does not take medications at home - Has been wnl here. Will continue to monitor. Swollen Right UE, resolved - Venous doppler negative for DVT, showed subq edema DVT: SCDs Code: FULL Diet: thick nectar, puree PCP: SHREE Posada Dispo: Continue work with PT/OT. Encourage use of IS. Patient is showing improvement in RUE strength. ruth HALL, is working on disability application which will be helpful in getting approval for placement. Now attempting to acquire home O2. Ready for discharge pending placement.
[2020-07-04] MEDS: Mometasone 200 MCG/Formoterol 5 MCG 120 PUFF INHALER INH SCH ×2 (07:58→19:20)
[2020-07-04] MEDS: Aspirin 325 MG TAB PO SCH (09:38)
--- NOTE | 2020-07-04 09:53 | PDOC.GSPN ---
Surgery Progress Note: Subj - Subjective Narrative: Have been following peripherally with wound care. Wounds on the top of the toes looks stable. Eschar at the amputation site laterally has debrided and she now has an open wound at this area but this is clean and does not appear to be deep. Ulcer on the lateral malleolus is stable. No signs of infection. Due to her stroke her right foot tends to lie on its side. I ordered foam booties and reminded the nurse to keep pillows under her calves to keep her feet off the bed. She is receiving appropriate wound care and should eventually heal. Surgery Progress Note: Obj - Vital signs Vital signs: Vital Signs - Most Recent Temp Pulse Resp BP Pulse Ox 98.4 F 62 18 99/58 L 97 07/04/20 07:44 07/04/20 07:44 07/04/20 07:44 07/04/20 07:44 07/04/20 07:44 Surgery Progress Note: Results - Labs Result Diagrams: 06/28/20 07:11 06/28/20 07:11 - Radiology Interpretation Chest x-ray Status: report reviewed by me (no acute process) CT scan - head Status: report reviewed by me (suspicious for L MCA Infarct, 1.2 cm left ext ernal capsular parenchymal hematoma) MRI - head Status: report reviewed by me (L MCA distribution infarct) Other Status: report reviewed by me (CT cervical spine: degenerative changes, no acute process)
--- NOTE | 2020-07-04 15:31 | PRG ---
DATE OF SERVICE: 07/04/2020 ADDENDUM: This an addendum to the note of Dr. Alanna Forman. Ms. Jauregui is resting quietly in bed, in no distress. We are arranging discharge as per Case Management. She likely needs an outpatient sleep study as well as 24/7 O2, given her profound hypoxemia and respiratory acidosis, which was compensated, associated with pulmonary hypertension. Job ID: [id number]
[2020-07-04] MEDS: Atorvastatin Calcium 40 MG TAB PO SCH (21:26)
--- NOTE | 2020-07-05 06:05 | PDOC.FM ---
- Subjective Subjective: Ms. Jauregui is doing well today. Dr. Aguilera saw her yesterday and changed the wound care recommendations for her foot. She denies any complaints this morning. - Objective Vital Signs & Weight: Vital Signs (12 hours) Temp Pulse Resp BP Pulse Ox 07/05/20 04:00 97.5 F L 64 18 89/61 L 100 07/05/20 00:00 97.3 F L 62 20 91/54 L 99 07/04/20 21:30 96 07/04/20 20:00 97.7 F 68 18 84/45 L 96 07/04/20 19:20 68 16 96 Weight Admit Weight 106.367 kg Weight 106.367 kg I&O: 07/03/20 07/04/20 07/05/20 06:59 06:59 06:59 Intake Total 890 620 720 Balance 890 620 720 Result Diagrams: 06/28/20 07:11 06/28/20 07:11 Phys Exam - Physical Examination Constitutional: NAD Neck: supple Musculoskeletal: no edema Neurological: moves all 4 limbs (4/5 R hand and leg strength. 5/5 L hand and leg strength.) Psychiatric: normal affect Skin: no rash Dx/Plan - Plan Plan: 55 yo F with a history of COPD and thoracic aortic aneurysm s/p TAVR in 2018 presenting for L MCA infarct L MCA ischemic infarct - Expressive aphasia and R sided hemiparesis. - CT brain and MRI show L MCA infarct c/w sxs - Dr. Singer, neurology, following. Appreciate recs - Neurosurgery, [place], will f/u in 8-12 wks - Q4h neuro checks - Continue aspirin, statin - Continue PT/OT/SPORTS PHYSIOTHERAPIST - CM assisting with placement as patient is uninsured. Patient's nephew, her MPOA, is applying patient for disability. Medical Decision Maker - Contacted patient's nephew, Geoffrey Jauregui, who he states is all the family patient has left. - Palliative consult placed - Geoffrey acting as MPOA HFpEF - Repeat ECHO showed EF of 60-65% with evidence of diastolic dysfunction - CXR showed no evidence of fluid overload Eschar of right foot Hx right toe amputations - Wound care consult - R foot Xray: inflammation and possible infection - Surgery consult (Willy): no surgical intervention at this time NSTEMI type II - likely related to hypovolemia - trop 0.05, 0.04, 0.05 - EKG: sinus rhythm - On tele COPD - Per partner, patient uses inhalers at home - ABG showed pO2 of 57mmHg + pancytopenia means pt should be on O2 at all times * Will attempt to get her O2 Hx thoracic aortic aneurysm s/p TAVR 2018 - Rep[place] [address] Dooley - unaware if patient has had any subsequent follow-up HTN - Neuro desire strict BP control - Does not take medications at home - Has been wnl here. Will continue to monitor. Swollen Right UE, resolved - Venous doppler negative for DVT, showed subq edema DVT: SCDs Code: FULL Diet: thick nectar, puree PCP: SHREE - [place] Dispo: Continue work with PT/OT. Encourage use of IS. Patient is showing improvement in RUE strength. ruth HALL, is working on disability application which will be helpful in getting approval for placement. Now attempting to acquire home O2. Ready for discharge pending placement.
[2020-07-05] MEDS: Mometasone 200 MCG/Formoterol 5 MCG 120 PUFF INHALER INH SCH ×2 (07:56→19:41)
[2020-07-05] MEDS: Aspirin 325 MG TAB PO SCH (08:57)
--- NOTE | 2020-07-05 16:00 | PRG ---
DATE OF SERVICE: 07/05/2020 There have been no clinical changes. We are still awaiting placement. Job ID: [id number]
[2020-07-05] MEDS: Atorvastatin Calcium 40 MG TAB PO SCH (21:30)
--- NOTE | 2020-07-06 05:50 | PDOC.FM ---
- Subjective Subjective: Mrs. Jauregui was sleeping comfortably this morning with her CPAP and I did not wake her. - Objective Vital Signs & Weight: Vital Signs (12 hours) Temp Pulse Resp BP Pulse Ox 07/06/20 03:09 98.2 F 58 L 20 98/55 L 99 07/05/20 23:36 98.6 F 77 20 93/56 L 97 07/05/20 21:30 96 07/05/20 19:14 98.4 F 68 20 82/53 L 96 Weight Admit Weight 106.367 kg Weight 106.367 kg I&O: 07/04/20 07/05/20 07/06/20 06:59 06:59 06:59 Intake Total 070 306 7032 Balance 900 902 9729 Result Diagrams: 06/28/20 07:11 06/28/20 07:11 Phys Exam - Physical Examination Constitutional: NAD Neck: supple R sided hemiplegia and dysarthria Dx/Plan - Plan Plan: 55 yo F with a history of COPD and thoracic aortic aneurysm s/p TAVR in 2018 presenting for L MCA infarct L MCA ischemic infarct - Expressive aphasia and R sided hemiparesis. - CT brain and MRI show L MCA infarct c/w sxs - Dr. Singer, neurology, following. Appreciate recs - Neurosurgery, [place], will f/u in 8-12 wks - Q4h neuro checks - Continue aspirin, statin - Continue PT/OT/PIECE WORK INSPECTOR - CM assisting with placement as patient is uninsured. Patient's nephew, her MPOA, is applying patient for disability. Medical Decision Maker - Contacted patient's nephew, Geoffrey Jauregui, who he states is all the family patient has left. - Palliative consult placed - Geoffrey acting as MPOA HFpEF - Repeat ECHO showed EF of 60-65% with evidence of diastolic dysfunction - CXR showed no evidence of fluid overload Eschar of right foot Hx right toe amputations - Wound care consult - R foot Xray: inflammation and possible infection - Surgery consult (Aguilera): no surgical intervention at this time NSTEMI type II - likely related to hypovolemia - trop 0.05, 0.04, 0.05 - EKG: sinus rhythm - On tele COPD - Per partner, patient uses inhalers at home - ABG showed pO2 of 57mmHg + pancytopenia means pt should be on O2 at all times * Will attempt to get her O2 Hx thoracic aortic aneurysm s/p TAVR 2018 - Repaired [place] [address] Dooley - unaware if patient has had any subsequent follow-up HTN - Neuro desire strict BP control - Does not take medications at home - Has been wnl here. Will continue to monitor. Swollen Right UE, resolved - Venous doppler negative for DVT, showed subq edema DVT: SCDs Code: FULL Diet: thick nectar, puree PCP: SHREE Posada Dispo: Continue work with PT/OT. Encourage use of IS. Patient is showing improvement in RUE strength. ruth HALL, is working on disability application which will be helpful in getting approval for placement. Now attempting to acquire home O2. Ready for discharge pending placement.
[2020-07-06] MEDS: Aspirin 325 MG TAB PO SCH (09:02)
[2020-07-06] MEDS: Mometasone 200 MCG/Formoterol 5 MCG 120 PUFF INHALER INH SCH ×2 (09:13→19:35)
--- NOTE | 2020-07-06 13:05 | PRG ---
DATE OF SERVICE: 07/06/2020 I have read the note of Dr. Forman and agreed with her assessment and plan. Job ID: [id number]
[2020-07-06] MEDS: Atorvastatin Calcium 40 MG TAB PO SCH (21:08)
--- NOTE | 2020-07-07 05:53 | PDOC.FM ---
- Subjective Subjective: Patient is currently sleeping, no acute events overnight. No complaints. CPAP on. - Objective MAR Reviewed: Yes Vital Signs & Weight: Vital Signs (12 hours) Temp Pulse Resp BP Pulse Ox 07/07/20 03:42 97.6 F 56 L 18 101/62 98 07/06/20 23:44 97.6 F 61 18 98/65 99 07/06/20 21:51 56 L 25 H 97 07/06/20 21:08 63 95/61 07/06/20 20:00 97.8 F 63 18 88/56 L 94 L Weight Admit Weight 106.367 kg Weight 106.367 kg I&O: 07/05/20 07/06/20 07/07/20 06:59 06:59 06:59 Intake Total 920 1200 1330 Balance 920 1200 1330 Result Diagrams: 06/28/20 07:11 06/28/20 07:11 Phys Exam - Physical Examination Constitutional: NAD Neck: supple Respiratory: no wheezing, clear to auscultation bilateral Cardiovascular: RRR, no significant murmur Musculoskeletal: no edema Dx/Plan - Plan Plan: 55 yo F with a history of COPD and thoracic aortic aneurysm s/p TAVR in 2018 presenting for L MCA infarct L MCA ischemic infarct - Expressive aphasia and R sided hemiparesis. - CT brain and MRI show L MCA infarct c/w sxs - Dr. Singer, neurology, following. Appreciate recs - Neurosurgery, [place], will f/u in 8-12 wks - Q4h neuro checks - Continue aspirin, statin - Continue PT/OT/SENIOR OFFICE SUPPORT ASSISTANT SOSA - CM assisting with placement as patient is uninsured. Patient's nephew, her MPOA, is applying patient for disability. Medical Decision Maker - Contacted patient's nephew, Geoffrey Jauregui, who he states is all the family patient has left. - Palliative consult placed - Geoffrey acting as MPOA HFpEF - Repeat ECHO showed EF of 60-65% with evidence of diastolic dysfunction - CXR showed no evidence of fluid overload Eschar of right foot Hx right toe amputations - Wound care consult - R foot Xray: inflammation and possible infection - Surgery consult (Aguilera): no surgical intervention at this time NSTEMI type II - likely related to hypovolemia - trop 0.05, 0.04, 0.05 - EKG: sinus rhythm - On tele COPD - Per partner, patient uses inhalers at home - ABG showed pO2 of 57mmHg + pancytopenia means pt should be on O2 at all times * Will attempt to get her O2 Hx thoracic aortic aneurysm s/p TAVR 2018 - Repaired [place] [address] Dooley - unaware if patient has had any subsequent follow-up HTN - Neuro desire strict BP control - Does not take medications at home - Has been wnl here. Will continue to monitor. Swollen Right UE, resolved - Venous doppler negative for DVT, showed subq edema DVT: SCDs Code: FULL Diet: thick nectar, puree PCP: SHREE Posada Dispo: Continue work with PT/OT. Encourage use of IS. Patient is showing improvement in RUE strength. ruth HALL, is working on disability application which will be helpful in getting approval for placement. Now attempting to acquire home O2. Ready for discharge pending placement. Addendum - Attending - Attending Attestation Date/Time: 07/07/202026 I personally evaluated the patient and discussed the management with Dr. Hoffman I agree with the History, Examination, Assessment and Plan documented above with any addition or exceptions noted below. Stable for d/c once placement set up. Continue PT/OT/ST
[2020-07-07] MEDS: Aspirin 325 MG TAB PO SCH (08:32)
[2020-07-07] MEDS: Mometasone 200 MCG/Formoterol 5 MCG 120 PUFF INHALER INH SCH ×2 (12:03→19:24)
[2020-07-07] MEDS: Atorvastatin Calcium 40 MG TAB PO SCH (20:33)
--- NOTE | 2020-07-08 05:59 | PDOC.FM ---
- Subjective Subjective: Patient is resting comfortably in bed. No acute concerns, no events overnight. Denies pain or other concerns. - Objective MAR Reviewed: Yes Vital Signs & Weight: Vital Signs (12 hours) Temp Pulse Resp BP Pulse Ox 07/08/20 03:40 98.7 F 07/08/20 03:14 96.8 F L 56 L 18 98/56 L 98 07/08/20 01:02 88 22 H 98 07/08/20 00:00 97.2 F L 62 16 100/67 98 07/07/20 20:00 93 L 07/07/20 19:32 98.5 F 85 16 101/63 93 L Weight Admit Weight 106.367 kg Weight 106.367 kg I&O: 07/06/20 07/07/20 07/08/20 06:59 06:59 06:59 Intake Total 1200 1390 900 Balance 1200 1390 900 Result Diagrams: 06/28/20 07:11 06/28/20 07:11 Phys Exam - Physical Examination Constitutional: NAD HEENT: moist MMs Respiratory: no wheezing, clear to auscultation bilateral Cardiovascular: RRR, no significant murmur Gastrointestinal: soft, non-tender Musculoskeletal: no edema R hemiplegia Dx/Plan - Plan Plan: 55 yo F with a history of COPD and thoracic aortic aneurysm s/p TAVR in 2018 presenting for L MCA infarct L MCA ischemic infarct - Expressive aphasia and R sided hemiparesis. - CT brain and MRI show L MCA infarct c/w sxs - Dr. Singer, neurology, following. Appreciate recs - Neurosurgery, [place], will f/u in 8-12 wks - Q4h neuro checks - Continue aspirin, statin - Continue PT/OT/CALCINER FEEDER - CM assisting with placement as patient is uninsured. Patient's nephew, her MPOA, is applying patient for disability. Medical Decision Maker - Contacted patient's nephew, Geoffrey Jauregui, who he states is all the family patient has left. - Palliative consult placed - Geoffrey acting as MPOA HFpEF - Repeat ECHO showed EF of 60-65% with evidence of diastolic dysfunction - CXR showed no evidence of fluid overload Eschar of right foot Hx right toe amputations - Wound care consult - R foot Xray: inflammation and possible infection - Surgery consult (Aguilera): no surgical intervention at this time NSTEMI type II - likely related to hypovolemia - trop 0.05, 0.04, 0.05 - EKG: sinus rhythm - On tele COPD - Per partner, patient uses inhalers at home - ABG showed pO2 of 57mmHg + pancytopenia means pt should be on O2 at all times * Will attempt to get her O2 Hx thoracic aortic aneurysm s/p TAVR 2018 - Repaired [place] [address] Dooley - unaware if patient has had any subsequent follow-up HTN - Neuro desire strict BP control - Does not take medications at home - Has been wnl here. Will continue to monitor. Swollen Right UE, resolved - Venous doppler negative for DVT, showed subq edema DVT: SCDs Code: FULL Diet: thick nectar, puree PCP: SHREE Posada Dispo: Continue work with PT/OT. Encourage use of IS. Patient is showing improvement in RUE strength. ruth HALL, is working on disability application which will be helpful in getting approval for placement. Now attempting to acquire home O2. Ready for discharge pending placement. Addendum - Attending - Attending Attestation Date/Time: 07/08/20 0335 I personally evaluated the patient and discussed the management with Dr. Hoffman I agree with the History, Examination, Assessment and Plan documented above with any addition or exceptions noted below.
[2020-07-08] MEDS: Mometasone 200 MCG/Formoterol 5 MCG 120 PUFF INHALER INH SCH ×2 (08:34→19:41)
[2020-07-08] MEDS: Aspirin 325 MG TAB PO SCH (09:51)
[2020-07-08] MEDS: Atorvastatin Calcium 40 MG TAB PO SCH (20:59)
--- NOTE | 2020-07-09 05:47 | PDOC.FM ---
- Subjective Subjective: Mrs. Jauregui is doing well this morning and denies any complaints. She agrees her R side is getting stronger and recognizes she is trying to form words but the words do not always come out like she wants. She denies NIETO, CP, SOB/dyspnea, abdominal pain, urinary complaints. - Objective Vital Signs & Weight: Vital Signs (12 hours) Temp Pulse Resp BP Pulse Ox 07/09/20 04:00 97.7 F 53 L 18 98/74 100 07/09/20 00:00 98.2 F 69 18 97/68 93 L 07/08/20 20:00 98.6 F 61 18 93/60 93 L Weight Admit Weight 106.367 kg Weight 106.367 kg I&O: 07/07/20 07/08/20 07/09/20 06:59 06:59 06:59 Intake Total 1776 361 7099 Balance 7298 178 3907 Result Diagrams: 06/28/20 07:11 06/28/20 07:11 Phys Exam - Physical Examination Constitutional: NAD Neck: supple, full ROM Neurological: moves all 4 limbs R hemiplegia Psychiatric: normal affect, A&O x 3 Skin: no rash Dx/Plan - Plan Plan: 55 yo F with a history of COPD and thoracic aortic aneurysm s/p TAVR in 2018 presenting for L MCA infarct L MCA ischemic infarct - Expressive aphasia and R sided hemiparesis. - CT brain and MRI show L MCA infarct c/w sxs - Dr. Singer, neurology, following. Appreciate recs - Neurosurgery, [place], will f/u in 8-12 wks - Q4h neuro checks - Continue aspirin, statin - Continue PT/OT/STOCK FITTER - CM assisting with placement as patient is uninsured. Patient's nephew, her MPOA, is applying patient for disability. Medical Decision Maker - Contacted patient's nephew, Geoffrey Jauregui, who he states is all the family patient has left. - Palliative consult placed - Geoffrey acting as MPOA HFpEF - Repeat ECHO showed EF of 60-65% with evidence of diastolic dysfunction - CXR showed no evidence of fluid overload Eschar of right foot Hx right toe amputations - Wound care consult - R foot Xray: inflammation and possible infection - Surgery consult (Aguilera): no surgical intervention at this time. Following and making continual recommendations to wound care NSTEMI type II - likely related to hypovolemia - trop 0.05, 0.04, 0.05 - EKG: sinus rhythm - On tele COPD - Per partner, patient uses inhalers at home - ABG showed pO2 of 57mmHg + pancytopenia means pt should be on O2 at all times * Will attempt to get her O2 on discharge Hx thoracic aortic aneurysm s/p TAVR 2018 - Repaired [place] [address] Dooley - unaware if patient has had any subsequent follow-up HTN - Neuro desire strict BP control - Does not take medications at home - Has been wnl here. Will continue to monitor. Swollen Right UE, resolved - Venous doppler negative for DVT, showed subq edema DVT: SCDs Code: FULL Diet: thick nectar, puree PCP: SHREE Posada Dispo: Continue work with PT/OT. Encourage use of IS. Patient is showing improvement in RUE strength. ruth HALL, is working on disability application which will be helpful in getting approval for placement. Now attempting to acquire home O2. Ready for discharge pending placement. Addendum - Attending - Attending Attestation Date/Time: 07/09/202229 I personally evaluated the patient and discussed the management with Dr. Abimael Gill I agree with the History, Examination, Assessment and Plan documented above with any addition or exceptions noted below Denies any complaints. Afebrile VSS. A/P: 1) S/P MCA CVA- continue PT/OT/ST. Family assisting with disability application. 2) COPD- stable.
[2020-07-09] MEDS: Mometasone 200 MCG/Formoterol 5 MCG 120 PUFF INHALER INH SCH ×2 (06:31→19:20)
[2020-07-09] MEDS: Aspirin 325 MG TAB PO SCH (09:45)
[2020-07-09] MEDS: Atorvastatin Calcium 40 MG TAB PO SCH (21:33)
--- NOTE | 2020-07-10 05:56 | PDOC.FM ---
- Subjective Subjective: Ms. Jauregui is doing well this morning and has no complaints. She has been made aware that [facility]. - Objective Vital Signs & Weight: Vital Signs (12 hours) Temp Pulse Resp BP Pulse Ox 07/10/20 04:00 96.7 F L 51 L 16 93/60 100 07/10/20 03:28 17 95 07/10/20 00:00 97.6 F 54 L 18 97 07/09/20 22:34 64 26 H 95 07/09/20 20:00 98.5 F 70 18 99/66 94 L Weight Admit Weight 106.367 kg Weight 106.367 kg I&O: 07/08/20 07/09/20 07/10/20 06:59 06:59 06:59 Intake Total 900 1200 1200 Balance 900 1200 1200 Result Diagrams: 06/28/20 07:11 06/28/20 07:11 Phys Exam - Physical Examination Constitutional: NAD Neck: supple R hemiparesis, dysarthria Psychiatric: normal affect Skin: no rash Dx/Plan - Plan Plan: 55 yo F with a history of COPD and thoracic aortic aneurysm s/p TAVR in 2018 presenting for L MCA infarct L MCA ischemic infarct - Expressive aphasia and R sided hemiparesis. - CT brain and MRI show L MCA infarct c/w sxs - Dr. Singer, neurology, following. Appreciate recs - Neurosurgery, [place], will f/u in 8-12 wks - Q4h neuro checks - Continue aspirin, statin - Continue PT/OT/CONTAINER FINISHER - CM assisting with placement as patient is uninsured. Patient's nephew, her MPOA, is applying patient for disability. * Per CM note, it appears [facility] approved pt. Will verify today Medical Decision Maker - Contacted patient's nephew, Geoffrey Jauregui, who he states is all the family patient has left. - Palliative consult placed - Geoffrey acting as MPOA HFpEF - Repeat ECHO showed EF of 60-65% with evidence of diastolic dysfunction - CXR showed no evidence of fluid overload Eschar of right foot Hx right toe amputations - Wound care consult - R foot Xray: inflammation and possible infection - Surgery consult (Aguilera): no surgical intervention at this time. Following and making continual recommendations to wound care NSTEMI type II - likely related to hypovolemia - trop 0.05, 0.04, 0.05 - EKG: sinus rhythm - On tele COPD - Per partner, patient uses inhalers at home - ABG showed pO2 of 57mmHg + pancytopenia means pt should be on O2 at all times * Will attempt to get her O2 on discharge Hx thoracic aortic aneurysm s/p TAVR 2018 - Rep[place] [address] Dooley - unaware if patient has had any subsequent follow-up HTN - Neuro desire strict BP control - Does not take medications at home - Has been wnl here. Will continue to monitor. Swollen Right UE, resolved - Venous doppler negative for DVT, showed subq edema DVT: SCDs Code: FULL Diet: thick nectar, puree PCP: SHREE - [place] Dispo: Continue work with PT/OT. Encourage use of IS. Patient is showing improvement in RUE strength and speech. ruth HALL, is working on disability application. It appears [facility] may be willing to accept her. Ready for discharge pending placement.
[2020-07-10] MEDS: Aspirin 325 MG TAB PO SCH (08:34)
[2020-07-10 11:52] LABS: SARS-CoV-2 NAA Rapid Test DETECTED (NotDetected)
[2020-07-10 14:01] LABS: SARS-CoV-2 NAA Rapid Test Not Detected (NotDetected)
[2020-07-10] MEDS: Mometasone 200 MCG/Formoterol 5 MCG 120 PUFF INHALER INH SCH ×2 (19:14→19:22)
[2020-07-10] MEDS: Atorvastatin Calcium 40 MG TAB PO SCH (20:37)
--- NOTE | 2020-07-11 06:12 | PDOC.FM ---
- Subjective Subjective: Ms. Jauregui is doing well this morning and is aware and agreeable to go to a NH today. She has no questions/concerns. - Objective Vital Signs & Weight: Vital Signs (12 hours) Temp Pulse Resp BP Pulse Ox 07/11/20 04:00 97.4 F L 56 L 18 95/60 99 07/11/20 00:55 67 26 H 96 07/11/20 00:00 98.4 F 74 18 116/79 90 L 07/10/20 19:42 98.3 F 70 18 103/73 92 L Weight Admit Weight 106.367 kg Weight 106.367 kg I&O: 07/09/20 07/10/20 07/11/20 06:59 06:59 06:59 Intake Total 1200 1200 1500 Balance 1200 1200 1500 Result Diagrams: 06/28/20 07:11 06/28/20 07:11 Phys Exam - Physical Examination Constitutional: NAD Neck: supple Neurological: moves all 4 limbs R sided hemiparesis Psychiatric: normal affect Skin: no rash Dx/Plan - Plan Plan: 55 yo F with a history of COPD and thoracic aortic aneurysm s/p TAVR in 2018 presenting for L MCA infarct L MCA ischemic infarct - Expressive aphasia and R sided hemiparesis. - CT brain and MRI show L MCA infarct c/w sxs - Dr. Singer, neurology, following. Appreciate recs - Neurosurgery, [facility], will f/u in 8-12 wks - Q4h neuro checks - Continue aspirin, statin - Continue PT/OT/ADJUNCT PROFESSOR OF LAW - CM assisting with placement as patient is uninsured. Patient's nephew, her MP OA, is applying patient for disability. * [facility] Plan for d/c today Medical Decision Maker - Contacted patient's nephew, Geoffrey Jauregui, who he states is all the family patient has left. - Palliative consult placed - Geoffrey acting as MPOA HFpEF - Repeat ECHO showed EF of 60-65% with evidence of diastolic dysfunction - CXR showed no evidence of fluid overload Eschar of right foot Hx right toe amputations - Wound care consult - R foot Xray: inflammation and possible infection - Surgery consult (Aguilera): no surgical intervention at this time. Following and making continual recommendations to wound care NSTEMI type II - likely related to hypovolemia - trop 0.05, 0.04, 0.05 - EKG: sinus rhythm - On tele COPD - Per partner, patient uses inhalers at home - ABG showed pO2 of 57mmHg + pancytopenia means pt should be on O2 at all times * Will attempt to get her O2 on discharge Hx thoracic aortic aneurysm s/p TAVR 2018 - Repaired [place] [address] Dooley - unaware if patient has had any subsequent follow-up HTN - Neuro desire strict BP control - Does not take medications at home - Has been wnl here. Will continue to monitor. Swollen Right UE, resolved - Venous doppler negative for DVT, showed subq edema DVT: SCDs Code: FULL Diet: thick nectar, puree PCP: SHREE Posada Dispo: [facility]. D/c today.
[2020-07-11] MEDS: Aspirin 325 MG TAB PO SCH (10:20)
[2020-07-11] MEDS: Mometasone 200 MCG/Formoterol 5 MCG 120 PUFF INHALER INH SCH (11:03)
[2020-07-11 16:28] VITALS: BP 88/62; TEMP 97.6
--- NOTE | 2020-07-12 19:14 | DIS ---
DATE OF ADMISSION: 06/18/2020 DATE OF DISCHARGE: 07/11/2020 ADMITTING ATTENDING: Amparo Peters MD. DISCHARGE ATTENDING: Dennis Murphy MD. CONSULTS: 1. Neurology, Dr. Singer, (06/18). 2. Neurosurgery, Dr. Ingram (06/18). 3. General Surgery, Dr. Aguilera, (06/21). PROCEDURES: 1. Chest x-ray, cervical spine CT, brain CT, brain MRI (06/18). 2. Echocardiogram, EEG, (06/19). 3. Vascular ultrasound, modified barium swallow (06/20). 4. Foot x-ray, carotid Doppler study (06/21). PRIMARY DIAGNOSES: 1. Left middle cerebral artery ischemic infarct. 2. Eschar of right foot. SECONDARY DIAGNOSES: 1. Hypertension. 2. Chronic obstructive pulmonary disease. 3. Aneurysm of descending thoracic aorta, status post transcatheter aortic valve replacement in 2018. 4. Heart failure with preserved ejection fraction. DISCHARGE MEDICATIONS: 1. Aspirin 325 mg p.o. daily. 2. Atorvastatin 40 mg p.o. at bedtime. 3. Lasix 40 mg p.o. p.r.n. 4. MiraLAX p.r.n. DISCONTINUED MEDICATIONS: None. HISTORY OF PRESENT ILLNESS/HOSPITAL COURSE: This is a 55-year-old patient who was found down in her feces, unable to ambulate or communicate, by a co-worker who performed a wellness check after she did not show to work for three days. Brain CT and MRI showed a left MCA infarct with a 1.2 cm left external capsular parenchymal hematoma. Neurology, Neurosurgery, Stroke team were consulted in the ED. On EKG, the patient was found to have an NSTEMI type 2, which is likely 2/[address] Ingram evaluated her in the ED and recommended head of bed elevation, BP control with systolics under 160, q.1h neuro checks, but no surgical intervention; he requested outpatient followup in 8-12 weeks. An echocardiogram was obtained which showed an EF of 60% to 65% with signs suggestive of diastolic dysfunction. Dr. Singer was consulted and recommended an EEG to rule out underlying cortical irritability because of large vessel stroke, in addition to DVT prophylaxis, GI prophylaxis, initiation of aspirin, initiation of statin, and strict blood pressure and blood sugar control. The EEG was interpreted as consistent with moderate generalized nonspecific cerebral dysfunction. Right arm edema developed, so a right upper extremity Doppler ultrasound was obtained which showed no DVT and mild subcutaneous edema. The patient had some right toe amputation with a poorly healing wound described as an eschar, so Dr. Aguilera was consulted. He evaluated the wound with Wound Care and made recommendations regarding its treatment, but felt no surgical intervention was necessary. A bilateral carotid duplex ultrasound was ordered as part of the stroke workup, and showed less than 50% maximal stenosis in bilateral internal carotid arteries. PT/OT/FIELD [employer] FARM WORKER were also consulted on arrival since the patient was left with residual dysarthria and right-sided hemiparesis. She was cooperative and working with them and regained significant strength and speech by the time she was discharged. The greatest complication of her stay was that she was uninsured and her next of kin was a nephew living in [place]. As a result of her lack of insurance, Case Management had a hard time finding a facility willing to offer her a harinder bed. During her stay, she was also diagnosed with obstructive sleep apnea based on clinical symptoms of apneic episodes while sleeping, and started on a CPAP. While she had a history of COPD, she did not use oxygen at baseline at home, but during her hospital stay, an ABG showed a PO2 of 57 mmHg, in addition to pancytopenia which indicated an oxygen requirement at all times, which was an added obstacle to obtaining placement. DISPOSITION: Stable. DISCHARGE INSTRUCTIONS: 1. Location: [facility]. 2. Diet: Heart healthy diet (nectar thick, pureed foods) as recommended by FI[employer] FARM WORKER. 3. Activity: As tolerated. Continue to work with PT, OT, FIELD [employer]OP FARM WORKER, Wound Care. 4. Followup: Patient is encouraged to follow up with her PCP, Dr. Posada, as needed. The patient is recommended to follow up with neurosurgeon, Dr. Ingram, in 5-7 weeks. Job ID: [id number]
== END 2020-07-11 17:15 | DRG 64 ==
LOC: ERS 11:38 → ERHOLD 15:05 → 2SE 19:58
PROVIDERS: ADMIT Emergency Medicine; ATTEND Emergency Medicine
PROC: 5A09557 Assistance with Respiratory Ventilation, Greater than 96 Consecutive Hours, Continuous Positive Airway Pressure (ICD-10-PCS; principal; 2020-06-18)
DX: I63.512 Cerebral infarction due to unspecified occlusion or stenosis of left middle cerebral artery (principal); I21.A1 Myocardial infarction type 2; I50.32 Chronic diastolic (congestive) heart failure; G81.91 Hemiplegia, unspecified affecting right dominant side; D61.818 Other pancytopenia; E87.2 Acidosis; Z20.828 Contact with and (suspected) exposure to other viral communicable diseases; Z51.5 Encounter for palliative care; I11.0 Hypertensive heart disease with heart failure; R29.735 NIHSS score 35; E86.1 Hypovolemia; G93.89 Other specified disorders of brain; I65.23 Occlusion and stenosis of bilateral carotid arteries; R47.1 Dysarthria and anarthria; G47.33 Obstructive sleep apnea (adult) (pediatric); J44.9 Chronic obstructive pulmonary disease, unspecified; F17.210 Nicotine dependence, cigarettes, uncomplicated; E78.5 Hyperlipidemia, unspecified; R13.10 Dysphagia, unspecified; D57.1 Sickle-cell disease without crisis; L89.512 Pressure ulcer of right ankle, stage 2; I27.20 Pulmonary hypertension, unspecified; R09.02 Hypoxemia; Z89.411 Acquired absence of right great toe; Z95.4 Presence of other heart-valve replacement; Z88.8 Allergy status to other drugs, medicaments and biological substances; Z79.899 Other long term (current) drug therapy
CPT/HCPCS: 36415; 36416; 36600; 51702; 70450; 70553; 71045; 72125; 74230; 80048; 80053; 80061; 80306; 81001; 81003; 81015; 82533; 82550; 82553; 82805; 83036; 83605; 83735; 84100; 84439; 84443; 84481; 84484; 85025; 85610; 85730; 86140; 87040; 87086; 93005; 93306; 93880; 94660; 94664; 95712; 95819; 95957; 96361; 96365; A9579; J0696; U0002